=== PATIENT | male | born 1955 | race African-American/Black ===

== ENCOUNTER 2017-09-25 12:28 | Inpatient (IN) | payer OTHER ==
[2017-09-25 13:04] VITALS: BMI 34.0
--- NOTE | 2017-09-25 14:39 | HP ---
CIWA Score - CIWA Score Nausea/Vomitin Muscle Tremors: 3 Anxiety: 3 Agitation: 3 Paroxysmal Sweats: 3 Orientation: 1-Uncertain about Date Tacttile Disturbances: 0-None Auditory Disturbances: 0-None Visual Disturbances: 0-None Headache: 0-None Present CIWA-Ar Total Score: 15 Admission ROS BHS - HPI Chief Complaint: " I need to stop drinking, I need help with my drinking problem" Allergies/Adverse Reactions: Allergies Allergy/AdvReac Type Severity Reaction Status Date / Time Penicillins Allergy Severe Swelling Verified 09/25/17 13:52 History of Present Illness: 61 year old male with a thirty year history of alcohol addiction presents today for alcohol detox. Denies previous detox experience. Endorses 18 months hx of sobriety in [address] case, has never been sober since then. Was at [facility] last night seeking help for detox, was brought in today by Lori. Denies any significant medical or psychiatric hx, although has been told he has HTN in the past but not on meds. Denies current suicidal ideas or attempt. Last drink was 9pm last night. Exam Limitations: No Limitations - Ebola screening Have you traveled outside of the country in the last 21 days: No (N) Have you had contact with anyone from an Ebola affected area: No Have you been sick,other than usual withdrawal symptoms: No Do you have a fever: No - Review of Systems Constitutional: No Symptoms Reported EENT: reports: Other (wears bifocal glasses) Respiratory: reports: No Symptoms reported (with clear phlegm x years), Productive cough Cardiac: reports: No Symptoms Reported GI: reports: Other (burning in abdomen which subsides with milk) : reports: No Symptoms Reported Musculoskeletal: reports: No Symptoms Reported Integumentary: reports: No Symptoms Reported Neuro: reports: No Symptoms reported Endocrine: reports: No Symptoms Reported Hematology: reports: No Symptoms Reported Psychiatric: reports: Judgement Intact, Mood/Affect Appropiate, Orientated x3, Anxious Other Systems: Reviewed and Negative Patient History - Patient Medical History Hx Asthma: No Hx Chronic Obstructive Pulmonary Disease (COPD): No Hx Cancer: No Hx Cardiac Disorders: No Hx Congestive Heart Failure: No Hx Hypertension: Yes (Not on meds) Hx Hypercholesterolemia: No Hx Pacemaker: No HX Cerebrovascular Accident: No Hx Seizures: No Hx Dementia: No Hx Diabetes: No Hx Gastrointestinal Disorders: No Hx Liver Disease: No Hx Genitourinary Disorders: No Hx Sexually Transmitted Disorders: No Hx Renal Disease (ESRD): No Hx Thyroid Disease: No Hx Human Immunodeficiency Virus (HIV): No Hx Hepatitis C: No Hx Depression: No Hx Suicide Attempt: No (denies past or current) Hx Bipolar Disorder: No Hx Schizophrenia: No - Patient Surgical History Past Surgical History: No Hx Neurologic Surgery: No Hx Cataract Extraction: No Hx Cardiac Surgery: No Hx Lung Surgery: No Hx Breast Surgery: No Hx Breast Biopsy: No Hx Abdominal Surgery: No Hx Appendectomy: No Hx Cholecystectomy: No Hx Genitourinary Surgery: No Hx Section: No Hx Orthopedic Surgery: No Anesthesia Reaction: No - PPD History Previous Implant?: Yes Documented Results: Negative w/o proof Implanted On Prior R Admission?: No PPD to be Administered?: Yes - Reproductive History Patient is a Female of Child Bearing Age (11 -55 yrs old): No - Smoking Cessation Smoking history: Current every day smoker Have you smoked in the past 12 months: Yes Aproximately how many cigarettes per day: 20 Hx Chewing Tobacco Use: No Initiated information on smoking cessation: Yes 'Breaking Loose' booklet given: 09/25/17 - Substance & Tx. History Hx Alcohol Use: Yes Hx Substance Use: No - Substances Abused Alcohol Route: Oral Frequency: Daily Amount used: liquor- 1 quart, beer- 2 (12 oz)six pack Age of first use: 31 Date of Last Use: 09/24/17 Crack Route: Smoking Frequency: Daily Amount used: 8 - 10 bags Age of first use: 31 Date of Last Use: 09/23/17 Family Disease History - Family Disease History Family Disease History: CA: Mother (lymphoma, 04/2016), Other: Father (1963 ) Admission Physical Exam BHS - Vital Signs Vital Signs: Vital Signs - 24 hr 09/25/17 13:01 Temperature 96 F L Pulse Rate 64 Respiratory 20 Rate Blood Pressure 139/88 - Physical General Appearance: Yes: Mild Distress, Tremorous, Anxious HEENTM: Yes: Within Normal Limits Respiratory: Yes: Chest Non-Tender, Lungs Clear, No Respiratory Distress, No Accessory Muscle Use Breast: Yes: Breast Exam Deferred Cardiology: Yes: Regular Rate, S1, S2 Abdominal: Yes: Normal Bowel Sounds, Non Tender, Distended Genitourinary: Yes: Within Normal Limits Back: Yes: Within Normal Limits, Normal Inspection Musculoskeletal: Yes: full range of Motion, Gait Steady Extremities: Yes: Within Normal Limits, Normal Inspection 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: Yes: Within Normal Limits, Motor Strength 5/5 - Addiitonal Findings: ganglion cyst to L hip area, non tender - Diagnostic (1) Alcohol dependence with uncomplicated intoxication Current Visit: Yes Status: Acute (2) Cocaine dependence Current Visit: Yes Status: Acute (3) Nicotine dependence Current Visit: Yes Status: Chronic Qualifiers: Nicotine product type: cigarettes Cleared for Admission [facility] - Detox or Rehab [facility] Level of Care: Medically Managed Detox Regimen/Protocol: Librium [facility] Breath Alcohol Content Breath Alcohol Content: 0 Urine Drug Screen - Results Drug Screen Negative: No Urine Drug Screen Results: ABISAI-Cocaine
[2017-09-25] MEDS ORDERED: P-EPHED 60MG/TRIPROLIDI 2.5MG TABLET PO PRN (15:02)
[2017-09-25] MEDS ORDERED: ACETAMINOPHEN 325 MG TABLET (FP) PO PRN (15:02)
[2017-09-25] MEDS ORDERED: MENTHOL/PHENOL 1 EACH UD MM PRN (15:02)
[2017-09-25] MEDS ORDERED: MAGNESIUM HYDROX 2400MG/30ML ORAL SUSPENSION 30 ML CUP PO PRN (15:02)
[2017-09-25] MEDS ORDERED: MAG HYDROX/AL HYDROX/SIMETH 30 ML UNIT-DOSE CUP PO PRN (15:02)
[2017-09-25] MEDS ORDERED: guaiFENesin/D-METHORPHAN HB 10 ML UNIT-DOSE CUPS PO PRN (15:02)
[2017-09-25] MEDS ORDERED: NICOTINE POLACRILEX 2 MG GUM BC PRN (15:02)
[2017-09-25] MEDS ORDERED: LOPERAMIDE HCL 2 MG CAPSULE PO PRN (15:02)
[2017-09-25] MEDS ORDERED: MAGNESIUM CITRATE 300 ML BOTTLE PO PRN (15:02)
[2017-09-25] MEDS ORDERED: hydrOXYzine PAMOATE 25 MG CAPSULE (FP) PO PRN (15:02)
[2017-09-25] MEDS ORDERED: IBUPROFEN 400 MG TABLET (FP) PO PRN (15:02)
[2017-09-25] MEDS ORDERED: chlordiazePOXIDE HCL 25 MG CAPSULE PO PRN (17:48)
[2017-09-25] MEDS: chlordiazePOXIDE HCL 25 MG CAPSULE PO SCH ×2 (18:29→22:15)
[2017-09-25] MEDS: NICOTINE 21 MG/24 HOURS TOPICAL PATCH TD SCH (18:34)
[2017-09-25] MEDS: THIAMINE HCL 100 MG TABLET (FP) PO SCH (22:15)
[2017-09-25 23:59] LABS: URINE APPEARANCE CLEAR; URINE BILIRUBIN NEGATIVE (NEGATIVE); URINE BLOOD NEGATIVE (NEGATIVE); URINE COLOR YELLOW; URINE GLUCOSE (UA) NEGATIVE (NEGATIVE); URINE KETONE NEGATIVE (NEGATIVE); URINE LEUK ESTERASE NEGATIVE (NEGATIVE); URINE NITRITE NEGATIVE (NEGATIVE); URINE PROTEIN NEGATIVE (NEGATIVE); URINE UROBILINOGEN NEGATIVE mg/dL (0.2-1.0)
[2017-09-26] MEDS: chlordiazePOXIDE HCL 25 MG CAPSULE PO SCH ×4 (05:25→22:37)
--- NOTE | 2017-09-26 10:06 | CONSULT ---
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 Denies previous detox history. Substance Abuse History: Smoking history: Current every day smoker. Have you smoked in the past 12 months: Yes. Aproximately how many cigarettes per day: 20. Hx Chewing Tobacco Use: No. Initiated information on smoking cessation: Yes. 'Breaking Loose' booklet given: 09/25/17. - Substance & Tx. History. Hx Alcohol Use: Yes. Hx Substance Use: No. - Substances Abused. Alcohol. Route: Oral. Frequency: Daily. Amount used: liquor- 1 quart, beer- 2 (12 oz) six pack. Age of first use: 31. Date of Last Use: 09/24/17. Crack. Route : Smoking. Frequency: Daily. Amount used: 8 - 10 bags. Age of first use: 31. Date of Last Use: 09/23/17 Medical History: Patient denies any significant medical history. Psychiatric History: Patient reports history of depression, history of psychiatric admission on about 2 years ago for safety, reports taking Celexa 20mg poqd priort o admission for his deprerssion. Denies current suicidal ideas or history of suicidal attempts. Physical/Sexual Abuse/Trauma History: Denies Additional Comment: Celexa 20mg poqd Mental Status Exam - Mental Status Exam Alert and Oriented to: Person Cognitive Function: Fair Patient Appearance: Well Groomed Mood: Apprehensive Affect: Appropriate Patient Behavior: Cooperative Speech Pattern: Appropriate Voice Loudness: Mildly Soft/Quiet Thought Process: Circumstantial, Goal Oriented Thought Disorder: Being Controlled Hallucinations: Denies Suicidal Ideation: Denies Homicidal Ideation: Denies Insight/Judgement: Fair Sleep: Difficulty falling asleep Appetite: Fair Muscle strength/Tone: Normal Gait/Station: Normal Additional Comments: Celexa 20mg poqd Psychiatric Findings - Problem List ([place] 1, 2,3) (1) Drug-induced mood disorder Current Visit: Yes Status: Acute (2) Alcohol dependence with uncomplicated intoxication Current Visit: Yes Status: Acute (3) Cocaine dependence Current Visit: Yes Status: Acute (4) Nicotine dependence Current Visit: Yes Status: Chronic Qualifiers: Nicotine product type: cigarettes - Initial Treatment Plan Initial Treatment Plan: Celexa 20mg poqd
[2017-09-26 10:08] LABS: HEMOGLOBIN 12.8 GM/dL (11.7-16.9); MCH 30.2 pg (25.7-33.7); MCHC 33.7 g/dl (32.0-35.9); MEAN CELL VOLUME 89.6 fl (80-96); MEAN PLT VOLUME 8.1 fl (7.5-11.1); PLATELET COUNT 220 K/MM3 (134-434); RBC 4.24 M/mm3 (4.00-5.60); RDW 14.6 % (11.9-15.9); WHITE BLOOD COUNT 4.2 K/mm3 (4.0-10.0)
[2017-09-26 10:17] LABS: CHLORIDE 109 mmol/L (98-107); SODIUM 142 mmol/L (136-145)
[2017-09-26 10:31] LABS: ALBUMIN 3.1 g/dl (3.4-5.0); ALK PHOS 57 U/L (45-117); ANION GAP 8 (8-16); BILIRUBIN,TOTAL 0.3 mg/dL (0.2-1.0); BLOOD UREA NITROGEN 16 mg/dL (7-18); CALCIUM 7.8 mg/dL (8.5-10.1); CO2 25 mmol/L (21-32); CREATININE 0.9 mg/dL (0.7-1.3); GLUCOSE,RANDOM 88 mg/dL (74-106); SGOT/AST 10 U/L (15-37); SGPT/ALT 14 U/L (12-78); TOT PROT 5.7 g/dl (6.4-8.2)
[2017-09-26] MEDS: NICOTINE 21 MG/24 HOURS TOPICAL PATCH TD SCH (10:32)
[2017-09-26] MEDS: PRENATAL VITAMINS W/ FOLIC ACID TABLET (FP) PO SCH (10:32)
[2017-09-26] MEDS: CITALOPRAM HYDROBROMIDE 20 MG TABLET (FP) PO SCH (10:32)
--- NOTE | 2017-09-26 11:17 | PN ---
S CIWA - CIWA Score Nausea/Vomitin Muscle Tremors: 3 Anxiety: 3 Agitation: 2 Paroxysmal Sweats: 1-Minimal Palms Moist Orientation: 0-Oriented Tacttile Disturbances: 1-Very Mild Itch/Numbness Auditory Disturbances: 1-Very Mild Visual Disturbances: 0-None Headache: 2-Mild CIWA-Ar Total Score: 16 BHS Progress Note (SOAP) Subjective: ALERT,IRRITABLE,ANXIOUS,INTERRUPTED SLEEP,TREMOR Objective: 09/26/17 11:15 Vital Signs Temperature 98.1 F 09/26/17 10:30 Pulse Rate 83 09/26/17 10:30 Respiratory Rate 20 09/26/17 10:30 Blood Pressure 145/74 09/26/17 10:30 O2 Sat by Pulse Oximetry (%) EKG NSR,NORMAL ECG Laboratory Last Values WBC 4.2 K/mm3 (4.0-10.0) 09/26/17 07:00 RBC 4.24 M/mm3 (4.00-5.60) 09/26/17 07:00 Hgb 12.8 GM/dL (11.7-16.9) 09/26/17 07:00 Hct 38.0 % (35.4-49) 09/26/17 07:00 MCV 89.6 fl (80-96) 09/26/17 07:00 MCH 30.2 pg (25.7-33.7) 09/26/17 07:00 MCHC 33.7 g/dl (32.0-35.9) 09/26/17 07:00 RDW 14.6 % (11.9-15.9) 09/26/17 07:00 Plt Count 220 K/MM3 (134-434) 09/26/17 07:00 MPV 8.1 fl (7.5-11.1) 09/26/17 07:00 Sodium 142 mmol/L (136-145) 09/26/17 07:00 Potassium 4.0 mmol/L (3.5-5.1) 09/26/17 07:00 Chloride 109 mmol/L (98-107) H 09/26/17 07:00 Carbon Dioxide 25 mmol/L (21-32) 09/26/17 07:00 Anion Gap 8 (8-16) 09/26/17 07:00 BUN 16 mg/dL (7-18) 09/26/17 07:00 Creatinine 0.9 mg/dL (0.7-1.3) 09/26/17 07:00 Creat Clearance w eGFR > 60 (>60) 09/26/17 07:00 Random Glucose 88 mg/dL (74-106) 09/26/17 07:00 Calcium 7.8 mg/dL (8.5-10.1) L 09/26/17 07:00 Total Bilirubin 0.3 mg/dL (0.2-1.0) 09/26/17 07:00 AST 10 U/L (15-37) L 09/26/17 07:00 ALT 14 U/L (12-78) 09/26/17 07:00 Alkaline Phosphatase 57 U/L (45-117) 09/26/17 07:00 Total Protein 5.7 g/dl (6.4-8.2) L 09/26/17 07:00 Albumin 3.1 g/dl (3.4-5.0) L 09/26/17 07:00 Urine Color Yellow 09/25/17 20:00 Urine Appearance Clear 09/25/17 20:00 Urine pH 6.0 (5.0-8.0) 09/25/17 20:00 Ur Specific [place] 1.027 (1.001-1.035) 09/25/17 20:00 Urine Protein Negative (NEGATIVE) 09/25/17 20:00 Urine Glucose (UA) Negative (NEGATIVE) 09/25/17 20:00 Urine Ketones Negative (NEGATIVE) 09/25/17 20:00 Urine Blood Negative (NEGATIVE) 09/25/17 20:00 Urine Nitrite Negative (NEGATIVE) 09/25/17 20:00 Urine Bilirubin Negative (NEGATIVE) 09/25/17 20:00 Urine Urobilinogen Negative mg/dL (0.2-1.0) 09/25/17 20:00 Ur Leukocyte Esterase Negative (NEGATIVE) 09/25/17 20:00 Assessment: 09/26/17 11:17 WITHDRAWAL SYMPTOM Plan: CONTINUE DETOX
--- NOTE | 2017-09-26 16:08 | EKG ---
Test Reason : Blood Pressure : / mmHG Vent. Rate : 083 BPM Atrial Rate : 083 BPM P-R Int : 144 ms QRS Dur : 084 ms QT Int : 390 ms P-R-T Axes : 046 020 010 degrees QTc Int : 458 ms NORMAL SINUS RHYTHM NORMAL ECG NO PREVIOUS ECGS AVAILABLE Confirmed by LUKE SANCHEZ MD ([id number]) on 09/26/2017 4:07:30 PM Referred By: Confirmed By:LUKE SANCHEZ MD
[2017-09-26] MEDS: THIAMINE HCL 100 MG TABLET (FP) PO SCH (22:36)
[2017-09-27] MEDS: chlordiazePOXIDE HCL 25 MG CAPSULE PO SCH ×2 (05:23→10:47)
[2017-09-27] MEDS: NICOTINE 21 MG/24 HOURS TOPICAL PATCH TD SCH (10:47)
[2017-09-27] MEDS: PRENATAL VITAMINS W/ FOLIC ACID TABLET (FP) PO SCH (10:47)
[2017-09-27] MEDS: CITALOPRAM HYDROBROMIDE 20 MG TABLET (FP) PO SCH (10:47)
--- NOTE | 2017-09-27 11:21 | PN ---
S CIWA - CIWA Score Nausea/Vomitin Muscle Tremors: 3 Anxiety: 3 Agitation: 2 Paroxysmal Sweats: 1-Minimal Palms Moist Orientation: 0-Oriented Tacttile Disturbances: 1-Very Mild Itch/Numbness Auditory Disturbances: 1-Very Mild Visual Disturbances: 0-None Headache: 2-Mild CIWA-Ar Total Score: 16 BHS Progress Note (SOAP) Subjective: ALERT,IRRITABLE,ANXIOUS,INTERRUPTED SLEEP,TREMOR Objective: 09/27/17 11:19 Vital Signs Temperature 98.1 F 09/27/17 09:59 Pulse Rate 77 09/27/17 09:59 Respiratory Rate 18 09/27/17 09:59 Blood Pressure 143/84 09/27/17 09:59 O2 Sat by Pulse Oximetry (%) Laboratory Last Values WBC 4.2 K/mm3 (4.0-10.0) 09/26/17 07:00 RBC 4.24 M/mm3 (4.00-5.60) 09/26/17 07:00 Hgb 12.8 GM/dL (11.7-16.9) 09/26/17 07:00 Hct 38.0 % (35.4-49) 09/26/17 07:00 MCV 89.6 fl (80-96) 09/26/17 07:00 MCH 30.2 pg (25.7-33.7) 09/26/17 07:00 MCHC 33.7 g/dl (32.0-35.9) 09/26/17 07:00 RDW 14.6 % (11.9-15.9) 09/26/17 07:00 Plt Count 220 K/MM3 (134-434) 09/26/17 07:00 MPV 8.1 fl (7.5-11.1) 09/26/17 07:00 Sodium 142 mmol/L (136-145) 09/26/17 07:00 Potassium 4.0 mmol/L (3.5-5.1) 09/26/17 07:00 Chloride 109 mmol/L (98-107) H 09/26/17 07:00 Carbon Dioxide 25 mmol/L (21-32) 09/26/17 07:00 Anion Gap 8 (8-16) 09/26/17 07:00 BUN 16 mg/dL (7-18) 09/26/17 07:00 Creatinine 0.9 mg/dL (0.7-1.3) 09/26/17 07:00 Creat Clearance w eGFR > 60 (>60) 09/26/17 07:00 Random Glucose 88 mg/dL (74-106) 09/26/17 07:00 Calcium 7.8 mg/dL (8.5-10.1) L 09/26/17 07:00 Total Bilirubin 0.3 mg/dL (0.2-1.0) 09/26/17 07:00 AST 10 U/L (15-37) L 09/26/17 07:00 ALT 14 U/L (12-78) 09/26/17 07:00 Alkaline Phosphatase 57 U/L (45-117) 09/26/17 07:00 Total Protein 5.7 g/dl (6.4-8.2) L 09/26/17 07:00 Albumin 3.1 g/dl (3.4-5.0) L 09/26/17 07:00 Urine Color Yellow 09/25/17 20:00 Urine Appearance Clear 09/25/17 20:00 Urine pH 6.0 (5.0-8.0) 09/25/17 20:00 Ur Specific [place] 1.027 (1.001-1.035) 09/25/17 20:00 Urine Protein Negative (NEGATIVE) 09/25/17 20:00 Urine Glucose (UA) Negative (NEGATIVE) 09/25/17 20:00 Urine Ketones Negative (NEGATIVE) 09/25/17 20:00 Urine Blood Negative (NEGATIVE) 09/25/17 20:00 Urine Nitrite Negative (NEGATIVE) 09/25/17 20:00 Urine Bilirubin Negative (NEGATIVE) 09/25/17 20:00 Urine Urobilinogen Negative mg/dL (0.2-1.0) 09/25/17 20:00 Ur Leukocyte Esterase Negative (NEGATIVE) 09/25/17 20:00 RPR Titer Nonreactive (NONREACTIVE) 09/26/17 07:00 Assessment: 09/27/17 11:20 WITHDRAWAL SYMPTOM Plan: CONTINUE DETOX
[2017-09-27] MEDS: chlordiazePOXIDE 5 MG CAPSULE PO SCH ×2 (18:18→22:23)
[2017-09-27] MEDS: THIAMINE HCL 100 MG TABLET (FP) PO SCH (22:23)
[2017-09-28] MEDS: chlordiazePOXIDE 5 MG CAPSULE PO SCH ×2 (05:25→10:41)
[2017-09-28] MEDS: PRENATAL VITAMINS W/ FOLIC ACID TABLET (FP) PO SCH (10:41)
[2017-09-28] MEDS: CITALOPRAM HYDROBROMIDE 20 MG TABLET (FP) PO SCH (10:41)
[2017-09-28] MEDS: NICOTINE 21 MG/24 HOURS TOPICAL PATCH TD SCH (10:42)
--- NOTE | 2017-09-28 11:51 | PN ---
S Progress Note (SOAP) Subjective: ALERT,IRRITABLE,ANXIOUS,INTERRUPTED SLEEP Objective: 09/28/17 11:50 Vital Signs Temperature 97.9 F 09/28/17 10:26 Pulse Rate 76 09/28/17 10:26 Respiratory Rate 20 09/28/17 10:26 Blood Pressure 155/84 09/28/17 10:26 O2 Sat by Pulse Oximetry (%) Assessment: 09/28/17 11:50 WITHDRAWAL SYMPTOM Plan: CONTINUE DETOX,DISCHARGE IN AM
[2017-09-28] MEDS: chlordiazePOXIDE HCL 10 MG CAPSULE PO SCH ×2 (18:09→22:20)
[2017-09-28] MEDS: THIAMINE HCL 100 MG TABLET (FP) PO SCH (22:20)
[2017-09-29] MEDS: chlordiazePOXIDE HCL 10 MG CAPSULE PO SCH ×2 (05:27→12:01)
--- NOTE | 2017-09-29 08:32 | PN ---
S Progress Note (SOAP) Subjective: ALERT,NO COMPLAINT Objective: 09/29/17 08:31 Vital Signs Temperature 98.8 F 09/29/17 06:00 Pulse Rate 64 09/29/17 06:00 Respiratory Rate 18 09/29/17 06:00 Blood Pressure 145/86 09/29/17 06:00 O2 Sat by Pulse Oximetry (%) Assessment: 09/29/17 08:31 DETOX COMPLETED,NO WITHDRAWAL SYMPTOM Plan: DISCHARGE TODAY,FOLLOW UP WITH AFTER CARE PROGRAM ARRANGEMENT
--- NOTE | 2017-09-29 08:36 | DS ---
[facility] Summary Admission Date: 09/25/17 Discharge Date: 09/29/17 - History Present History: Alcohol Dependence, Cocaine Dependence Additional Comments: FOLLOW UP WITH AFTER CARE PROGRAM ARRANGEMENT Pertinent Past History: NICOTINE DEPENDENCE - Physical Exam Results Vital Signs: Vital Signs Temperature 98.8 F 09/29/17 06:00 Pulse Rate 64 09/29/17 06:00 Respiratory Rate 18 09/29/17 06:00 Blood Pressure 145/86 09/29/17 06:00 O2 Sat by Pulse Oximetry (%) Pertinent Admission Physical Exam Findings: WITHDRAWAL SIGNS AND SYMPTOM Vital Signs Temperature 98.8 F 09/29/17 06:00 Pulse Rate 64 09/29/17 06:00 Respiratory Rate 18 09/29/17 06:00 Blood Pressure 145/86 09/29/17 06:00 O2 Sat by Pulse Oximetry (%) - Treatment Hospital Course: Detox Protocol Followed, Detoxed Safely, Responded well, Discharged Condition Good, Rehab Referral Accepted Patient has Accepted a Rehab Referral to: [facility] - Medication Discharge Medications: Ambulatory Orders Citalopram Hydrobromide [Celexa -] 20 mg PO DAILY #30 tablet 09/26/17 - Diagnosis (1) Alcohol dependence with uncomplicated intoxication Current Visit: Yes Status: Acute (2) Cocaine dependence Current Visit: Yes Status: Acute (3) Drug-induced mood disorder Current Visit: Yes Status: Acute (4) Nicotine dependence Current Visit: Yes Status: Chronic Qualifiers: Nicotine product type: cigarettes - AMA Did Patient Leave Against Medical Advice: No
[2017-09-29 09:55] VITALS: BP 153/84; PULSE 73; TEMP 97.2
[2017-09-29] MEDS: NICOTINE 21 MG/24 HOURS TOPICAL PATCH TD SCH (10:55)
[2017-09-29] MEDS: CITALOPRAM HYDROBROMIDE 20 MG TABLET (FP) PO SCH (10:55)
[2017-09-29] MEDS: PRENATAL VITAMINS W/ FOLIC ACID TABLET (FP) PO SCH (10:55)
== END 2017-09-29 13:59 | disposition home or self-care (01) | DRG 774 ==
LOC: YASAS 12:28 → Y6N 15:26
PROVIDERS: ADMIT Internal Medicine; ATTEND Internal Medicine
PROC: HZ2ZZZZ Detoxification Services for Substance Abuse Treatment (ICD-10-PCS; principal; 2017-09-25)
DX: F10.230 Alcohol dependence with withdrawal, uncomplicated (principal); F14.20 Cocaine dependence, uncomplicated; F17.210 Nicotine dependence, cigarettes, uncomplicated; F19.24 Other psychoactive substance dependence with psychoactive substance-induced mood disorder
CPT/HCPCS: 36415; 80053; 81003; 85027; 86593; 93005; 93010

== ENCOUNTER 2017-10-31 19:34 | Inpatient (IN) | payer OTHER ==
[2017-10-31 21:22] VITALS: BMI 29.9
--- NOTE | 2017-10-31 23:28 | HP ---
CIWA Score - CIWA Score Nausea/Vomitin-Mild Nausea/No Vomiting Muscle Tremors: 2 Anxiety: 2 Agitation: 2 Paroxysmal Sweats: 1-Minimal Palms Moist Orientation: 0-Oriented Tacttile Disturbances: 2-Mild Itch/Numbness/Burn Auditory Disturbances: 0-None Visual Disturbances: 0-None Headache: 2-Mild CIWA-Ar Total Score: 12 Admission ROS BHS - HPI Chief Complaint: alcohol withdrawal symptoms Allergies/Adverse Reactions: Allergies Allergy/AdvReac Type Severity Reaction Status Date / Time Penicillins Allergy Severe Swelling Verified 09/25/17 13:52 History of Present Illness: 62 year old male with hx of nicotine, alcohol and crack / cocaine dependence is here seeking detox. Reports last detox at [facility] 09/25/17 - 09/29/17. Endorses 18 months hx of sobriety in [address] case, has never been sober since then. PMHX: HTN, insomnia, denies any other medical ailments. Denies suicidal / homicidal ideation or suicide attempts. Exam Limitations: No Limitations - Ebola screening Have you traveled outside of the country in the last 21 days: No Have you had contact with anyone from an Ebola affected area: No Have you been sick,other than usual withdrawal symptoms: No Do you have a fever: No - Review of Systems Constitutional: Changes in sleep EENT: reports: See HPI, Other (q-tip in the right ear x 1 year) Respiratory: reports: No Symptoms reported Cardiac: reports: No Symptoms Reported GI: reports: Diarrhea, Nausea, Poor Fluid Intake : reports: No Symptoms Reported Musculoskeletal: reports: No Symptoms Reported Integumentary: reports: Pruritus (neck) Neuro: reports: Headache Endocrine: reports: Increased Thirst Hematology: reports: No Symptoms Reported Psychiatric: reports: Orientated x3, Anxious Other Systems: Reviewed and Negative Patient History - Patient Medical History Hx Asthma: No Hx Chronic Obstructive Pulmonary Disease (COPD): No Hx Cancer: No Hx Cardiac Disorders: No Hx Congestive Heart Failure: No Hx Hypertension: Yes (Not on meds) Hx Hypercholesterolemia: No Hx Pacemaker: No HX Cerebrovascular Accident: No Hx Seizures: No Hx Dementia: No Hx Diabetes: No Hx Gastrointestinal Disorders: No Hx Liver Disease: No Hx Genitourinary Disorders: No Hx Sexually Transmitted Disorders: No Hx Renal Disease (ESRD): No Hx Thyroid Disease: No Hx Human Immunodeficiency Virus (HIV): No Hx Hepatitis C: No Hx Depression: No Hx Suicide Attempt: No (denies past or current) Hx Bipolar Disorder: No Hx Schizophrenia: No - Patient Surgical History Past Surgical History: No Hx Neurologic Surgery: No Hx Cataract Extraction: No Hx Cardiac Surgery: No Hx Lung Surgery: No Hx Breast Surgery: No Hx Breast Biopsy: No Hx Abdominal Surgery: No Hx Appendectomy: No Hx Cholecystectomy: No Hx Genitourinary Surgery: No Hx Section: No Hx Orthopedic Surgery: No Anesthesia Reaction: No - PPD History Previous Implant?: Yes Documented Results: Negative w/proof Date: 09/27/17 PPD to be Administered?: No - Reproductive History Patient is a Female of Child Bearing Age (11 -55 yrs old): No - Smoking Cessation Smoking history: Current every day smoker Have you smoked in the past 12 months: Yes Aproximately how many cigarettes per day: 2 Hx Chewing Tobacco Use: No Initiated information on smoking cessation: Yes 'Breaking Loose' booklet given: 10/31/17 - Substance & Tx. History Hx Alcohol Use: Yes Hx Substance Use: Yes Substance Use Type: Alcohol, Cocaine Hx Substance Use Treatment: Yes ([facility] 09/25/17 -09/29/17) - Substances Abused Alcohol Route: Oral Frequency: Daily Amount used: 1 quart [place] Age of first use: 28 Date of Last Use: 10/31/17 Crack Route: Smoking Frequency: Daily Amount used: 1.5 gram Age of first use: 28 Date of Last Use: 10/30/17 Family Disease History - Family Disease History Family Disease History: CA: Mother (lymphoma, 04/2016), Other: Father (1963 ) Admission Physical Exam [facility] - Vital Signs Vital Signs: Vital Signs - 24 hr 10/31/17 21:20 Temperature 97.3 F L Pulse Rate 78 Respiratory 18 Rate Blood Pressure 151/86 - Physical General Appearance: Yes: No Apparent Distress, Sweating, Anxious HEENTM: Yes: EOMI, Hearing grossly Normal, Normal ENT Inspection, Normocephalic , Normal Voice, CODI, Pharynx Normal, Tm's normal Respiratory: Yes: Chest Non-Tender, Lungs Clear, Normal Breath Sounds, No Respiratory Distress, No Accessory Muscle Use Neck: Yes: Within Normal Limits Breast: Yes: Breast Exam Deferred Cardiology: Yes: Regular Rhythm, Regular Rate Abdominal: Yes: Normal Bowel Sounds, Non Tender, Flat, Soft Genitourinary: Yes: Within Normal Limits Back: Yes: Normal Inspection Musculoskeletal: Yes: full range of Motion, Gait Steady, Pelvis Stable Extremities: Yes: Normal Capillary Refill, Normal Inspection, Normal Range of Motion, Non-Tender 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: 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: 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 NML intact, Fully Oriented, Alert, Motor Strength 5/5, Depressed Affect Integumentary: Yes: Normal Color, Warm, Diaphoresis Lymphatic: Yes: Within Normal Limits - Diagnostic (1) Hypertension Current Visit: Yes Status: Chronic Qualifiers: Hypertension type: essential hypertension Qualified Code(s): I10 - Essential (primary) hypertension (2) Alcohol dependence with uncomplicated intoxication Current Visit: Yes Status: Acute (3) Cocaine dependence Current Visit: Yes Status: Acute (4) Nicotine dependence Current Visit: Yes Status: Chronic Qualifiers: Nicotine product type: cigarettes Cleared for Admission [facility] - Detox or Rehab [facility] Level of Care: Medically Managed Detox Regimen/Protocol: Librium [facility] Breath Alcohol Content Breath Alcohol Content: 0 Urine Drug Screen - Results Drug Screen Negative: No Urine Drug Screen Results: ABISAI-Cocaine
[2017-10-31] MEDS ORDERED: P-EPHED 60MG/TRIPROLIDI 2.5MG TABLET PO PRN (23:36)
[2017-10-31] MEDS ORDERED: NICOTINE POLACRILEX 2 MG GUM BUC PRN (23:36)
[2017-10-31] MEDS ORDERED: MAG HYDROX/AL HYDROX/SIMETH 30 ML UNIT-DOSE CUP PO PRN (23:36)
[2017-10-31] MEDS ORDERED: chlordiazePOXIDE HCL 25 MG CAPSULE PO ONE (23:36)
[2017-10-31] MEDS ORDERED: hydrOXYzine PAMOATE 50 MG CAPSULE (FP) PO PRN (23:36)
[2017-10-31] MEDS ORDERED: MAGNESIUM CITRATE 300 ML BOTTLE PO PRN (23:36)
[2017-10-31] MEDS ORDERED: LOPERAMIDE HCL 2 MG CAPSULE PO PRN (23:36)
[2017-10-31] MEDS ORDERED: MAGNESIUM HYDROX 2400MG/30ML ORAL SUSPENSION 30 ML CUP PO PRN (23:36)
[2017-10-31] MEDS ORDERED: chlordiazePOXIDE HCL 25 MG CAPSULE PO PRN (23:36)
[2017-10-31] MEDS ORDERED: ACETAMINOPHEN 325 MG TABLET (FP) PO PRN (23:36)
[2017-10-31] MEDS ORDERED: guaiFENesin/D-METHORPHAN HB 10 ML UNIT-DOSE CUPS PO PRN (23:36)
[2017-10-31] MEDS ORDERED: IBUPROFEN 400 MG TABLET (FP) PO PRN (23:36)
[2017-10-31] MEDS ORDERED: MENTHOL/PHENOL 1 EACH UD MM PRN (23:36)
[2017-11-01] MEDS: chlordiazePOXIDE HCL 25 MG CAPSULE PO SCH ×5 (02:20→22:18)
[2017-11-01 10:02] LABS: URINE APPEARANCE CLEAR; URINE BILIRUBIN NEGATIVE (<2.0 mg/dL); URINE BLOOD NEGATIVE (NEGATIVE); URINE COLOR LTYELLOW; URINE GLUCOSE (UA) NEGATIVE (NEGATIVE); URINE KETONE NEGATIVE (NEGATIVE); URINE LEUK ESTERASE NEGATIVE (NEGATIVE); URINE NITRITE NEGATIVE (NEGATIVE); URINE PROTEIN NEGATIVE (NEGATIVE); URINE UROBILINOGEN NEGATIVE mg/dL (0.2-1.0)
[2017-11-01 10:19] LABS: HEMATOCRIT 37.9 % (35.4-49); HEMOGLOBIN 12.7 GM/dL (11.7-16.9); MCH 29.9 pg (25.7-33.7); MCHC 33.5 g/dl (32.0-35.9); MEAN CELL VOLUME 89.3 fl (80-96); MEAN PLT VOLUME 8.7 fl (7.5-11.1); PLATELET COUNT 198 K/MM3 (134-434); RBC 4.24 M/mm3 (4.00-5.60); RDW 14.2 % (11.9-15.9); WHITE BLOOD COUNT 3.7 K/mm3 (4.0-10.0)
[2017-11-01 10:25] LABS: CHLORIDE 111 mmol/L (98-107); POTASSIUM 3.8 mmol/L (3.5-5.1); SODIUM 145 mmol/L (136-145)
[2017-11-01 10:32] LABS: ALBUMIN 3.2 g/dl (3.4-5.0); ALK PHOS 62 U/L (45-117); ANION GAP 6 (8-16); BILIRUBIN,TOTAL 0.2 mg/dL (0.2-1.0); BLOOD UREA NITROGEN 15 mg/dL (7-18); CALCIUM 8.2 mg/dL (8.5-10.1); CO2 28 mmol/L (21-32); CREATININE 0.8 mg/dL (0.7-1.3); GLUCOSE,RANDOM 85 mg/dL (74-106); SGOT/AST 23 U/L (15-37); SGPT/ALT 24 U/L (12-78); TOT PROT 6.2 g/dl (6.4-8.2)
[2017-11-01] MEDS: NICOTINE 14 MG/24 HOURS TOPICAL PATCH TD SCH (10:43)
[2017-11-01] MEDS: PRENATAL VITAMINS W/ FOLIC ACID TABLET (FP) PO SCH (10:43)
[2017-11-01] MEDS ORDERED: FLU VACCINE QUAD 60 MCG/0.5 ML (MDV 17-18) IM ONE (12:00)
[2017-11-01] MEDS: LABETALOL HCL 200 MG TABLET (FP) PO SCH ×2 (12:07→22:18)
[2017-11-01] MEDS: PATIENT'S OWN MEDICATION (NON-FORMULARY) (Losartan/Hydrochlorothiazide [Hyzaar 100-12.5 Ta PO SCH (12:08)
--- NOTE | 2017-11-01 12:43 | PN ---
[facility] CIWA - CIWA Score Nausea/Vomitin-No Nausea/No Vomiting Muscle Tremors: 3 Anxiety: 3 Agitation: 3 Paroxysmal Sweats: 1-Minimal Palms Moist Orientation: 0-Oriented Tacttile Disturbances: 0-None Auditory Disturbances: 0-None Visual Disturbances: 0-None Headache: 1-Very Mild CIWA-Ar Total Score: 11 S Progress Note (SOAP) Subjective: sweat tremor anxiety restlessness trouble sleeping headache Objective: 11/01/17 12:45 Vital Signs Temperature 97.5 F L 11/01/17 10:16 Pulse Rate 71 11/01/17 10:16 Respiratory Rate 20 11/01/17 10:16 Blood Pressure 158/88 11/01/17 10:16 O2 Sat by Pulse Oximetry (%) Laboratory Last Values WBC 3.7 K/mm3 (4.0-10.0) L 11/01/17 08:30 RBC 4.24 M/mm3 (4.00-5.60) 11/01/17 08:30 Hgb 12.7 GM/dL (11.7-16.9) 11/01/17 08:30 Hct 37.9 % (35.4-49) 11/01/17 08:30 MCV 89.3 fl (80-96) 11/01/17 08:30 MCH 29.9 pg (25.7-33.7) 11/01/17 08:30 MCHC 33.5 g/dl (32.0-35.9) 11/01/17 08:30 RDW 14.2 % (11.9-15.9) 11/01/17 08:30 Plt Count 198 K/MM3 (134-434) 11/01/17 08:30 MPV 8.7 fl (7.5-11.1) 11/01/17 08:30 Sodium 145 mmol/L (136-145) 11/01/17 08:30 Potassium 3.8 mmol/L (3.5-5.1) 11/01/17 08:30 Chloride 111 mmol/L (98-107) H 11/01/17 08:30 Carbon Dioxide 28 mmol/L (21-32) 11/01/17 08:30 Anion Gap 6 (8-16) L 11/01/17 08:30 BUN 15 mg/dL (7-18) 11/01/17 08:30 Creatinine 0.8 mg/dL (0.7-1.3) 11/01/17 08:30 Creat Clearance w eGFR > 60 (>60) 11/01/17 08:30 Random Glucose 85 mg/dL (74-106) 11/01/17 08:30 Calcium 8.2 mg/dL (8.5-10.1) L 11/01/17 08:30 Total Bilirubin 0.2 mg/dL (0.2-1.0) D 11/01/17 08:30 AST 23 U/L (15-37) D 11/01/17 08:30 ALT 24 U/L (12-78) D 11/01/17 08:30 Alkaline Phosphatase 62 U/L (45-117) 11/01/17 08:30 Total Protein 6.2 g/dl (6.4-8.2) L 11/01/17 08:30 Albumin 3.2 g/dl (3.4-5.0) L 11/01/17 08:30 Urine Color Ltyellow 11/01/17 08:00 Urine Appearance Clear 11/01/17 08:00 Urine pH 6.0 (5.0-8.0) 11/01/17 08:00 Ur Specific [place] 1.018 (1.001-1.035) 11/01/17 08:00 Urine Protein Negative (NEGATIVE) 11/01/17 08:00 Urine Glucose (UA) Negative (NEGATIVE) 11/01/17 08:00 Urine Ketones Negative (NEGATIVE) 11/01/17 08:00 Urine Blood Negative (NEGATIVE) 11/01/17 08:00 Urine Nitrite Negative (NEGATIVE) 11/01/17 08:00 Urine Bilirubin Negative (<2.0 mg/dL) 11/01/17 08:00 Urine Urobilinogen Negative mg/dL (0.2-1.0) 11/01/17 08:00 Ur Leukocyte Esterase Negative (NEGATIVE) 11/01/17 08:00 RPR Titer Nonreactive (NONREACTIVE) 11/01/17 08:30 lab noted Assessment: 11/01/17 12:46 withdrawal sx Plan: continue detox
[2017-11-01] MEDS: amLODIPine BESYLATE 5 MG TABLET (FP) PO SCH ×2 (13:31→22:18)
--- NOTE | 2017-11-01 14:21 | CONSULT ---
[facility] Psychiatric Consult - Data Date of interview: 11/01/17 Admission source: [facility] Identifying data: Pt. is a 62 year old single male, father of two, unemployed, and currently living with family. Pt. is receiving financial assistance from family. This is one of multiple admissions for patient. Pt. admitted to detox for alcohol and cocaine dependence. Substance Abuse History: Following information confirmed with Mr. Coreas: Smoking Cessation. Smoking history: Current every day smoker. Have you smoked in the past 12 months: Yes. Aproximately how many cigarettes per day: 2. Hx Chewing Tobacco Use: No. Initiated information on smoking cessation: Yes. ' Breaking Loose' booklet given: 10/31/17. - Substance & Tx. History. Hx Alcohol Use: Yes. Hx Substance Use: Yes. Substance Use Type: Alcohol, Cocaine. Hx Substance Use Treatment: Yes ([facility] 09/25/17 -09/29/17). - Substances Abused. Alcohol. Route: Oral. Frequency: Daily. Amount used: 1 quart [place]. Age of first use: 28. Date of Last Use: 10/31/17. Crack. Route: Smoking. Frequency: Daily. Amount used: 1.5 gram. Age of first use: 28. Date of Last Use: 10/30/17 Medical History: hypertension Psychiatric History: Patient reports spending two days at [facility] in august 2017 after jokingly stating he wanted to hurt himself. No other reported psychiatric hospitalizations noted. Pt. denies h/o outpatient care and suicide attempt. As per pharmacy claims patient has been prescribed celexa 20mg PO daily but patient denies accepting medication. Physical/Sexual Abuse/Trauma History: Denies. Mental Status Exam - Mental Status Exam Alert and Oriented to: Time, Place, Person Cognitive Function: Good Patient Appearance: Well Groomed Mood: Withdrawn, Euthymic Affect: Mood Congruent Patient Behavior: Guarded, Cooperative Speech Pattern: Appropriate Voice Loudness: Normal Thought Process: Goal Oriented Thought Disorder: Not Present Hallucinations: Denies Suicidal Ideation: Denies Homicidal Ideation: Denies Insight/Judgement: Poor Sleep: Fair Appetite: Fair Muscle strength/Tone: Normal Gait/Station: Other (Did not observe patien't gait.) Psychiatric Findings - Problem List ([place] 1, 2,3) (1) Alcohol dependence with uncomplicated intoxication Current Visit: Yes Status: Acute (2) Cocaine dependence Current Visit: Yes Status: Acute (3) Insomnia Current Visit: Yes Status: Acute (4) Nicotine dependence Current Visit: Yes Status: Chronic Qualifiers: Nicotine product type: cigarettes - Initial Treatment Plan Initial Treatment Plan: Psychoeducation provided. Detoxification in progress. Melatonin 5mg ordered for sleep by [employer]. Observation.
--- NOTE | 2017-11-01 16:56 | EKG ---
Test Reason : Blood Pressure : / mmHG Vent. Rate : 071 BPM Atrial Rate : 071 BPM P-R Int : 156 ms QRS Dur : 098 ms QT Int : 412 ms P-R-T Axes : 078 032 040 degrees QTc Int : 447 ms NORMAL SINUS RHYTHM NORMAL ECG Confirmed by MD Baird Edward ([id number]) on 11/01/2017 4:55:56 PM Referred By: Confirmed By:Emanuel Baird MD
[2017-11-01] MEDS: THIAMINE HCL 100 MG TABLET (FP) PO SCH (22:18)
[2017-11-02] MEDS: chlordiazePOXIDE HCL 25 MG CAPSULE PO SCH ×3 (05:13→18:00)
[2017-11-02] MEDS: PRENATAL VITAMINS W/ FOLIC ACID TABLET (FP) PO SCH (10:12)
[2017-11-02] MEDS: LABETALOL HCL 200 MG TABLET (FP) PO SCH ×2 (10:12→22:40)
[2017-11-02] MEDS: PATIENT'S OWN MEDICATION (NON-FORMULARY) (Losartan/Hydrochlorothiazide [Hyzaar 100-12.5 Ta PO SCH (10:13)
[2017-11-02] MEDS: NICOTINE 14 MG/24 HOURS TOPICAL PATCH TD SCH (10:13)
[2017-11-02] MEDS: amLODIPine BESYLATE 5 MG TABLET (FP) PO SCH ×2 (10:13→22:39)
--- NOTE | 2017-11-02 12:25 | PN ---
[facility] CIWA - CIWA Score Nausea/Vomitin-No Nausea/No Vomiting Muscle Tremors: 3 Anxiety: 3 Agitation: 3 Paroxysmal Sweats: 1-Minimal Palms Moist Orientation: 0-Oriented Tacttile Disturbances: 0-None Auditory Disturbances: 0-None Visual Disturbances: 0-None Headache: 0-None Present CIWA-Ar Total Score: 10 S Progress Note (SOAP) Subjective: sweat tremor mild gi upset less anxious Objective: 11/02/17 12:25 Vital Signs Temperature 98.1 F 11/02/17 10:31 Pulse Rate 70 11/02/17 10:31 Respiratory Rate 20 11/02/17 10:31 Blood Pressure 136/83 11/02/17 10:31 O2 Sat by Pulse Oximetry (%) Laboratory Last Values WBC 3.7 K/mm3 (4.0-10.0) L 11/01/17 08:30 RBC 4.24 M/mm3 (4.00-5.60) 11/01/17 08:30 Hgb 12.7 GM/dL (11.7-16.9) 11/01/17 08:30 Hct 37.9 % (35.4-49) 11/01/17 08:30 MCV 89.3 fl (80-96) 11/01/17 08:30 MCH 29.9 pg (25.7-33.7) 11/01/17 08:30 MCHC 33.5 g/dl (32.0-35.9) 11/01/17 08:30 RDW 14.2 % (11.9-15.9) 11/01/17 08:30 Plt Count 198 K/MM3 (134-434) 11/01/17 08:30 MPV 8.7 fl (7.5-11.1) 11/01/17 08:30 Sodium 145 mmol/L (136-145) 11/01/17 08:30 Potassium 3.8 mmol/L (3.5-5.1) 11/01/17 08:30 Chloride 111 mmol/L (98-107) H 11/01/17 08:30 Carbon Dioxide 28 mmol/L (21-32) 11/01/17 08:30 Anion Gap 6 (8-16) L 11/01/17 08:30 BUN 15 mg/dL (7-18) 11/01/17 08:30 Creatinine 0.8 mg/dL (0.7-1.3) 11/01/17 08:30 Creat Clearance w eGFR > 60 (>60) 11/01/17 08:30 Random Glucose 85 mg/dL (74-106) 11/01/17 08:30 Calcium 8.2 mg/dL (8.5-10.1) L 11/01/17 08:30 Total Bilirubin 0.2 mg/dL (0.2-1.0) D 11/01/17 08:30 AST 23 U/L (15-37) D 11/01/17 08:30 ALT 24 U/L (12-78) D 11/01/17 08:30 Alkaline Phosphatase 62 U/L (45-117) 11/01/17 08:30 Total Protein 6.2 g/dl (6.4-8.2) L 11/01/17 08:30 Albumin 3.2 g/dl (3.4-5.0) L 11/01/17 08:30 Urine Color Ltyellow 11/01/17 08:00 Urine Appearance Clear 11/01/17 08:00 Urine pH 6.0 (5.0-8.0) 11/01/17 08:00 Ur Specific [place] 1.018 (1.001-1.035) 11/01/17 08:00 Urine Protein Negative (NEGATIVE) 11/01/17 08:00 Urine Glucose (UA) Negative (NEGATIVE) 11/01/17 08:00 Urine Ketones Negative (NEGATIVE) 11/01/17 08:00 Urine Blood Negative (NEGATIVE) 11/01/17 08:00 Urine Nitrite Negative (NEGATIVE) 11/01/17 08:00 Urine Bilirubin Negative (<2.0 mg/dL) 11/01/17 08:00 Urine Urobilinogen Negative mg/dL (0.2-1.0) 11/01/17 08:00 Ur Leukocyte Esterase Negative (NEGATIVE) 11/01/17 08:00 RPR Titer Nonreactive (NONREACTIVE) 11/01/17 08:30 lab noted Assessment: 11/02/17 12:25 withdrawal sx Plan: continue detox
[2017-11-02] MEDS: MELATONIN 5 MG TABLETS PO PRN (22:38)
[2017-11-02] MEDS: THIAMINE HCL 100 MG TABLET (FP) PO SCH (22:39)
[2017-11-02] MEDS: chlordiazePOXIDE 5 MG CAPSULE PO SCH (22:39)
[2017-11-03] MEDS: chlordiazePOXIDE 5 MG CAPSULE PO SCH ×3 (05:46→17:50)
[2017-11-03] MEDS ORDERED: cloNIDine HCL 0.1 MG TABLET PO ONE (06:43)
--- NOTE | 2017-11-03 06:46 | PN ---
[facility] Progress Note Note: Patient's blood pressure is B/P 160/101. Patient is asymptomatic. Clonidine 0.1mg tablet oral ordered.
[2017-11-03] MEDS: amLODIPine BESYLATE 5 MG TABLET (FP) PO SCH (10:11)
[2017-11-03] MEDS: PRENATAL VITAMINS W/ FOLIC ACID TABLET (FP) PO SCH (10:11)
[2017-11-03] MEDS: PATIENT'S OWN MEDICATION (NON-FORMULARY) (Losartan/Hydrochlorothiazide [Hyzaar 100-12.5 Ta PO SCH (10:12)
[2017-11-03] MEDS: LABETALOL HCL 200 MG TABLET (FP) PO SCH ×2 (10:12→22:34)
[2017-11-03] MEDS: NICOTINE 14 MG/24 HOURS TOPICAL PATCH TD SCH (10:12)
[2017-11-03] MEDS ORDERED: amLODIPine BESYLATE 5 MG TABLET (FP) PO ONE (11:58)
--- NOTE | 2017-11-03 12:12 | PN ---
[facility] Progress Note (SOAP) Subjective: feeling better less alcohol withdrawal sx sleep through the night social with peers in day room patient had uncontrolled bp elevation recent losartan increased from 50 mg to 100 mg, encourage adherence with medication as prescribed and the risks of alcohol addiction Objective: 11/03/17 12:15 Vital Signs Temperature 98.2 F 11/03/17 09:54 Pulse Rate 71 11/03/17 09:54 Respiratory Rate 18 11/03/17 09:54 Blood Pressure 144/80 11/03/17 09:54 O2 Sat by Pulse Oximetry (%) Laboratory Last Values WBC 3.7 K/mm3 (4.0-10.0) L 11/01/17 08:30 RBC 4.24 M/mm3 (4.00-5.60) 11/01/17 08:30 Hgb 12.7 GM/dL (11.7-16.9) 11/01/17 08:30 Hct 37.9 % (35.4-49) 11/01/17 08:30 MCV 89.3 fl (80-96) 11/01/17 08:30 MCH 29.9 pg (25.7-33.7) 11/01/17 08:30 MCHC 33.5 g/dl (32.0-35.9) 11/01/17 08:30 RDW 14.2 % (11.9-15.9) 11/01/17 08:30 Plt Count 198 K/MM3 (134-434) 11/01/17 08:30 MPV 8.7 fl (7.5-11.1) 11/01/17 08:30 Sodium 145 mmol/L (136-145) 11/01/17 08:30 Potassium 3.8 mmol/L (3.5-5.1) 11/01/17 08:30 Chloride 111 mmol/L (98-107) H 11/01/17 08:30 Carbon Dioxide 28 mmol/L (21-32) 11/01/17 08:30 Anion Gap 6 (8-16) L 11/01/17 08:30 BUN 15 mg/dL (7-18) 11/01/17 08:30 Creatinine 0.8 mg/dL (0.7-1.3) 11/01/17 08:30 Creat Clearance w eGFR > 60 (>60) 11/01/17 08:30 Random Glucose 85 mg/dL (74-106) 11/01/17 08:30 Calcium 8.2 mg/dL (8.5-10.1) L 11/01/17 08:30 Total Bilirubin 0.2 mg/dL (0.2-1.0) D 11/01/17 08:30 AST 23 U/L (15-37) D 11/01/17 08:30 ALT 24 U/L (12-78) D 11/01/17 08:30 Alkaline Phosphatase 62 U/L (45-117) 11/01/17 08:30 Total Protein 6.2 g/dl (6.4-8.2) L 11/01/17 08:30 Albumin 3.2 g/dl (3.4-5.0) L 11/01/17 08:30 Urine Color Ltyellow 11/01/17 08:00 Urine Appearance Clear 11/01/17 08:00 Urine pH 6.0 (5.0-8.0) 11/01/17 08:00 Ur Specific [place] 1.018 (1.001-1.035) 11/01/17 08:00 Urine Protein Negative (NEGATIVE) 11/01/17 08:00 Urine Glucose (UA) Negative (NEGATIVE) 11/01/17 08:00 Urine Ketones Negative (NEGATIVE) 11/01/17 08:00 Urine Blood Negative (NEGATIVE) 11/01/17 08:00 Urine Nitrite Negative (NEGATIVE) 11/01/17 08:00 Urine Bilirubin Negative (<2.0 mg/dL) 11/01/17 08:00 Urine Urobilinogen Negative mg/dL (0.2-1.0) 11/01/17 08:00 Ur Leukocyte Esterase Negative (NEGATIVE) 11/01/17 08:00 RPR Titer Nonreactive (NONREACTIVE) 11/01/17 08:30 lab noted Assessment: 11/03/17 12:15 mild withdrawal sx hypertension Plan: medically supervised detox amlodipine 10 mg po daily lisinopril 20 mg po daily low salt diet
[2017-11-03] MEDS ORDERED: LISINOPRIL 20 MG TABLET (FP) PO SCH (16:30)
[2017-11-03] MEDS: THIAMINE HCL 100 MG TABLET (FP) PO SCH (22:33)
[2017-11-03] MEDS: MELATONIN 5 MG TABLETS PO PRN (22:33)
[2017-11-03] MEDS: chlordiazePOXIDE HCL 10 MG CAPSULE PO SCH (22:34)
[2017-11-04] MEDS: chlordiazePOXIDE HCL 10 MG CAPSULE PO SCH (05:08)
--- NOTE | 2017-11-04 08:29 | DS ---
[facility] Detox Discharge Summary Admission Date: 10/31/17 Discharge Date: 11/04/17 - History Present History: Alcohol Dependence, Cocaine Dependence Additional Comments: patient declined rehab Pertinent Past History: anxiety, depression, and anxiety, nicotien dependencce and htn - Physical Exam Results Vital Signs: Vital Signs Temperature 97.2 F L 11/04/17 07:14 Pulse Rate 63 11/04/17 07:14 Respiratory Rate 18 11/04/17 07:14 Blood Pressure 136/84 11/04/17 07:14 O2 Sat by Pulse Oximetry (%) Laboratory Tests 11/01/17 11/01/17 11/01/17 08:00 08:30 08:30 WBC 3.7 L RBC 4.24 Hgb 12.7 Hct 37.9 MCV 89.3 MCH 29.9 MCHC 33.5 RDW 14.2 Plt Count 198 MPV 8.7 Sodium 145 Potassium 3.8 Chloride 111 H Carbon Dioxide 28 Anion Gap 6 L BUN 15 Creatinine 0.8 Creat Clearance w eGFR > 60 Random Glucose 85 Calcium 8.2 L Total Bilirubin 0.2 D AST 23 D ALT 24 D Alkaline Phosphatase 62 Total Protein 6.2 L Albumin 3.2 L Urine Color Ltyellow Urine Appearance Clear Urine pH 6.0 Ur Specific [place] 1.018 Urine Protein Negative Urine Glucose (UA) Negative Urine Ketones Negative Urine Blood Negative Urine Nitrite Negative Urine Bilirubin Negative Urine Urobilinogen Negative Ur Leukocyte Esterase Negative RPR Titer 11/01/17 08:30 WBC RBC Hgb Hct MCV MCH MCHC RDW Plt Count MPV Sodium Potassium Chloride Carbon Dioxide Anion Gap BUN Creatinine Creat Clearance w eGFR Random Glucose Calcium Total Bilirubin AST ALT Alkaline Phosphatase Total Protein Albumin Urine Color Urine Appearance Urine pH Ur Specific [place] Urine Protein Urine Glucose (UA) Urine Ketones Urine Blood Urine Nitrite Urine Bilirubin Urine Urobilinogen Ur Leukocyte Esterase RPR Titer Nonreactive Pertinent Admission Physical Exam Findings: withdrawl sx, dehydration - Treatment Hospital Course: Detox Protocol Followed, Detoxed Safely, Responded well, Discharged Condition Good Patient has Accepted a Rehab Referral to: no - Medication Discharge Medications: Ambulatory Orders Citalopram Hydrobromide [Celexa -] 20 mg PO DAILY #30 tablet 09/26/17 Labetalol HCl [Normodyne -] 200 mg PO BID #60 tablet 11/03/17 Losartan/Hydrochlorothiazide [Hyzaar 100-12.5 Tablet] 1 tab PO DAILY #30 tablet 11/03/17 - Diagnosis (1) Alcohol dependence with uncomplicated intoxication Current Visit: Yes Status: Acute (2) Cocaine dependence Current Visit: Yes Status: Acute (3) Insomnia Current Visit: Yes Status: Acute (4) Hypertension Current Visit: Yes Status: Chronic Qualifiers: Hypertension type: essential hypertension Qualified Code(s): I10 - Essential (primary) hypertension (5) Nicotine dependence Current Visit: Yes Status: Chronic Qualifiers: Nicotine product type: cigarettes (6) Drug-induced mood disorder Current Visit: No Status: Acute - AMA Did Patient Leave Against Medical Advice: No
[2017-11-04] MEDS ORDERED: amLODIPine BESYLATE 10 MG TABLET (FP) PO SCH (10:00)
[2017-11-04 10:09] VITALS: BP 131/72; PULSE 70; TEMP 97.7
== END 2017-11-04 09:20 | disposition home or self-care (01) | DRG 774 ==
LOC: YASAS 19:34 → Y6N 22:45
PROVIDERS: ADMIT Internal Medicine; ATTEND Internal Medicine
PROC: HZ2ZZZZ Detoxification Services for Substance Abuse Treatment (ICD-10-PCS; principal; 2017-10-31)
DX: F10.230 Alcohol dependence with withdrawal, uncomplicated (principal); F14.20 Cocaine dependence, uncomplicated; F17.210 Nicotine dependence, cigarettes, uncomplicated; F32.9 Major depressive disorder, single episode, unspecified; F41.9 Anxiety disorder, unspecified; F19.24 Other psychoactive substance dependence with psychoactive substance-induced mood disorder; I10 Essential (primary) hypertension; G47.00 Insomnia, unspecified
CPT/HCPCS: 36415; 80053; 81003; 85027; 86593; 90688; 93005; 93010; G0008; J0735

== ENCOUNTER 2017-12-09 14:07 | Inpatient (IN) | payer OTHER ==
[2017-12-09 17:28] VITALS: BMI 30.7
--- NOTE | 2017-12-09 20:56 | HP ---
CIWA Score - CIWA Score Nausea/Vomitin Muscle Tremors: 4-Moderate,w/Arms Extend Anxiety: 3 Agitation: 3 Paroxysmal Sweats: No Perspiration Orientation: 1-Uncertain about Date Tacttile Disturbances: 0-None Auditory Disturbances: 0-None Visual Disturbances: 0-None Headache: 3-Moderate CIWA-Ar Total Score: 17 Admission ROS BHS - HPI Chief Complaint: Alcohol withdrawal symptoms Allergies/Adverse Reactions: Allergies Allergy/AdvReac Type Severity Reaction Status Date / Time Penicillins Allergy Severe Swelling Verified 12/09/17 17:39 History of Present Illness: 62 years old male with a long history of alcohol dependence is seeking admission to detox. Patient has been in previous detox and reports 10 years of sobriety. He has medical history of HTN and depression. He denies suicide attempt and suicidal ideation at this time. Exam Limitations: No Limitations - Ebola screening Have you traveled outside of the country in the last 21 days: No Have you had contact with anyone from an Ebola affected area: No Have you been sick,other than usual withdrawal symptoms: No Do you have a fever: No - Review of Systems Constitutional: Chills, Malaise, Night Sweats EENT: reports: No Symptoms Reported Respiratory: reports: No Symptoms reported Cardiac: reports: No Symptoms Reported GI: reports: No Symptoms Reported, Poor Appetite, Poor Fluid Intake, Abdominal cramping : reports: No Symptoms Reported Musculoskeletal: reports: Muscle Pain, Muscle Weakness Integumentary: reports: Dryness, Flushing Neuro: reports: Headache, Tremors Endocrine: reports: No Symptoms Reported Hematology: reports: No Symptoms Reported Psychiatric: reports: Anxious Other Systems: Reviewed and Negative Patient History - Patient Medical History Hx Anemia: No Hx Asthma: No Hx Chronic Obstructive Pulmonary Disease (COPD): No Hx Cancer: No Hx Cardiac Disorders: No Hx Congestive Heart Failure: No Hx Hypertension: Yes (Losartan) Hx Hypercholesterolemia: No Hx Pacemaker: No HX Cerebrovascular Accident: No Hx Seizures: No Hx Dementia: No Hx Diabetes: No Hx Gastrointestinal Disorders: No Hx Liver Disease: No Hx Genitourinary Disorders: No Hx Sexually Transmitted Disorders: No Hx Renal Disease (ESRD): No Hx Thyroid Disease: No Hx Human Immunodeficiency Virus (HIV): No (Negative 2017) Hx Hepatitis C: No Hx Depression: Yes (Not on medication) Hx Suicide Attempt: No Hx Bipolar Disorder: No Hx Schizophrenia: No - Patient Surgical History Past Surgical History: No Hx Neurologic Surgery: No Hx Cataract Extraction: No Hx Cardiac Surgery: No Hx Lung Surgery: No Hx Abdominal Surgery: No Hx Appendectomy: No Hx Cholecystectomy: No Hx Genitourinary Surgery: No Hx Orthopedic Surgery: No Anesthesia Reaction: No - PPD History Previous Implant?: Yes Documented Results: Negative w/proof Implanted On Prior [facility] Admission?: Yes Date: 09/27/17 Results: 0 mm PPD to be Administered?: No - Reproductive History Patient is a Female of Child Bearing Age (11 -55 yrs old): No (MALE) - Smoking Cessation Smoking history: Current every day smoker Have you smoked in the past 12 months: Yes Aproximately how many cigarettes per day: 20 Hx Chewing Tobacco Use: No Initiated information on smoking cessation: Yes 'Breaking Loose' booklet given: 12/09/17 - Substance & Tx. History Hx Alcohol Use: Yes Hx Substance Use: Yes Substance Use Type: Cocaine Hx Substance Use Treatment: Yes ([facility] ) - Substances Abused Crack Route: Smoking Frequency: 1-2 times per week Amount used: $300 Age of first use: 38 Date of Last Use: 12/08/17 Alcohol-beer Route: Oral Frequency: Daily Amount used: 4-5 (40 oz.) Age of first use: 28 Date of Last Use: 12/09/17 Family Disease History - Family Disease History Family Disease History: CA: Mother (lymphoma, 04/2016), Other: Father (1963 ) Admission Physical Exam S - Vital Signs Vital Signs: Vital Signs - 24 hr 12/09/17 17:26 Temperature 96.8 F L Pulse Rate 84 Respiratory 20 Rate Blood Pressure 150/90 - Physical HEENTM: Yes: EOMI, Normal ENT Inspection, Normocephalic, Normal Voice, CODI Respiratory: Yes: Lungs Clear, Normal Breath Sounds, No Respiratory Distress Neck: Yes: Supple Breast: Yes: Breast Exam Deferred Cardiology: Yes: Regular Rhythm, Regular Rate, S1, S2 Abdominal: Yes: Normal Bowel Sounds, Soft Genitourinary: Yes: Within Normal Limits Back: Yes: Normal Inspection Musculoskeletal: Yes: Within Normal Limits Extremities: Yes: Tremors 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: Yes: Normal Response Integumentary: Yes: Warm Lymphatic: Yes: Within Normal Limits - Diagnostic (1) Depression Current Visit: Yes Status: Acute (2) Alcohol dependence with uncomplicated intoxication Current Visit: Yes Status: Chronic (3) Cocaine dependence Current Visit: Yes Status: Chronic Qualifiers: Substance use status: uncomplicated Qualified Code(s): F14.20 - Cocaine dependence, uncomplicated (4) Hypertension Current Visit: Yes Status: Chronic Qualifiers: Hypertension type: essential hypertension Qualified Code(s): I10 - Essential (primary) hypertension (5) Nicotine dependence Current Visit: Yes Status: Chronic Qualifiers: Nicotine product type: cigarettes Cleared for Admission S - Detox or Rehab [facility] Level of Care: Medically Managed Detox Regimen/Protocol: Librium [facility] Breath Alcohol Content Breath Alcohol Content: 0 Urine Drug Screen - Results Drug Screen Negative: No Urine Drug Screen Results: ABISAI-Cocaine
[2017-12-09] MEDS ORDERED: MAGNESIUM HYDROX 2400MG/30ML ORAL SUSPENSION 30 ML CUP PO PRN (21:07)
[2017-12-09] MEDS ORDERED: ACETAMINOPHEN 325 MG TABLET (FP) PO PRN (21:07)
[2017-12-09] MEDS ORDERED: chlordiazePOXIDE HCL 25 MG CAPSULE PO PRN (21:07)
[2017-12-09] MEDS ORDERED: MAGNESIUM CITRATE 300 ML BOTTLE PO PRN (21:07)
[2017-12-09] MEDS ORDERED: NICOTINE POLACRILEX 2 MG GUM BC PRN (21:07)
[2017-12-09] MEDS ORDERED: P-EPHED 60MG/TRIPROLIDI 2.5MG TABLET PO PRN (21:07)
[2017-12-09] MEDS ORDERED: MENTHOL/PHENOL 1 EACH UD MM PRN (21:07)
[2017-12-09] MEDS ORDERED: LOPERAMIDE HCL 2 MG CAPSULE PO PRN (21:07)
[2017-12-09] MEDS ORDERED: guaiFENesin/D-METHORPHAN HB 10 ML UNIT-DOSE CUPS PO PRN (21:07)
[2017-12-09] MEDS ORDERED: IBUPROFEN 400 MG TABLET (FP) PO PRN (21:07)
[2017-12-09] MEDS ORDERED: MAG HYDROX/AL HYDROX/SIMETH 30 ML UNIT-DOSE CUP PO PRN (21:07)
[2017-12-09] MEDS ORDERED: MELATONIN 5 MG TABLETS PO PRN (22:00)
[2017-12-09] MEDS ORDERED: LABETALOL HCL 100 MG TABLET (FP) ONE (22:51)
[2017-12-09] MEDS: LABETALOL HCL 200 MG TABLET (FP) PO SCH (22:55)
[2017-12-09] MEDS: chlordiazePOXIDE HCL 25 MG CAPSULE PO SCH (22:55)
[2017-12-09] MEDS: THIAMINE HCL 100 MG TABLET (FP) PO SCH (22:55)
[2017-12-10 01:31] LABS: URINE APPEARANCE TURBID; URINE BILIRUBIN NEGATIVE (<2.0 mg/dL); URINE COLOR YELLOW; URINE GLUCOSE (UA) NEGATIVE (NEGATIVE); URINE KETONE NEGATIVE (NEGATIVE); URINE LEUK ESTERASE NEGATIVE (NEGATIVE); URINE NITRITE NEGATIVE (NEGATIVE)
[2017-12-10 01:33] LABS: URINE PROTEIN 1+ (NEGATIVE)
[2017-12-10 01:38] LABS: URINE MUCUS MANY
[2017-12-10] MEDS: chlordiazePOXIDE HCL 25 MG CAPSULE PO SCH ×4 (05:33→22:10)
--- NOTE | 2017-12-10 08:47 | EKG ---
Test Reason : Blood Pressure : / mmHG Vent. Rate : 066 BPM Atrial Rate : 066 BPM P-R Int : 146 ms QRS Dur : 098 ms QT Int : 430 ms P-R-T Axes : 073 027 046 degrees QTc Int : 450 ms NORMAL SINUS RHYTHM POSSIBLE LEFT ATRIAL ENLARGEMENT BORDERLINE ECG WHEN COMPARED WITH ECG OF 01-NOV-2017 02:28, T WAVE AMPLITUDE HAS DECREASED IN ANTERIOR LEADS Confirmed by HELENA BLAIR, REDD ([id number]) on 12/10/2017 8:47:08 AM Referred By: Mike Gunn Confirmed By:REDD MALIK MD
[2017-12-10] MEDS ORDERED: PATIENT'S OWN MEDICATION (NON-FORMULARY) (Losartan/Hydrochlorothiazide [Hyzaar 100-12.5 Ta PO SCH (10:00)
[2017-12-10 10:03] LABS: HEMATOCRIT 38.8 % (35.4-49); HEMOGLOBIN 12.7 GM/dL (11.7-16.9); MCH 29.1 pg (25.7-33.7); MCHC 32.8 g/dl (32.0-35.9); MEAN CELL VOLUME 88.9 fl (80-96); MEAN PLT VOLUME 8.6 fl (7.5-11.1); PLATELET COUNT 205 K/MM3 (134-434); RBC 4.36 M/mm3 (4.00-5.60); RDW 14.1 % (11.9-15.9); WHITE BLOOD COUNT 4.6 K/mm3 (4.0-10.0)
[2017-12-10] MEDS: NICOTINE 14 MG/24 HOURS TOPICAL PATCH TD SCH (10:29)
[2017-12-10] MEDS: PRENATAL VITAMINS W/ FOLIC ACID TABLET (FP) PO SCH (10:29)
[2017-12-10] MEDS: HYDROCHLOROTHIAZIDE 12.5 MG CAPSULE (FP) PO SCH (10:29)
[2017-12-10 10:31] LABS: CHLORIDE 113 mmol/L (98-107); POTASSIUM 3.9 mmol/L (3.5-5.1); SODIUM 146 mmol/L (136-145)
[2017-12-10] MEDS: LOSARTAN POTASSIUM 100 MG TABLET PO SCH (10:45)
[2017-12-10] MEDS: LABETALOL HCL 200 MG TABLET (FP) PO SCH ×2 (10:45→22:10)
[2017-12-10 10:51] LABS: ALBUMIN 3.1 g/dl (3.4-5.0); ALK PHOS 76 U/L (45-117); ANION GAP 7 (8-16); BILIRUBIN,TOTAL 0.3 mg/dL (0.2-1.0); BLOOD UREA NITROGEN 15 mg/dL (7-18); CO2 26 mmol/L (21-32); GLUCOSE,RANDOM 94 mg/dL (74-106); SGOT/AST 27 U/L (15-37); SGPT/ALT 40 U/L (12-78); TOT PROT 6.1 g/dl (6.4-8.2)
--- NOTE | 2017-12-10 12:24 | CONSULT ---
[facility] Psychiatric Consult - Data Date of interview: 12/10/17 Admission source: [facility] Identifying data: Readmission to [facility] for this 62 y/o AA male seeking detox treatment on for alcohol and cocaine dependence.Patient is single, a father of two,homeless,unemployed and supported on Public Assistance. Substance Abuse History: Confirmed by patient.Smoking history: Current every day smoker. Have you smoked in the past 12 months: Yes. Aproximately how many cigarettes per day: 20. Hx Chewing Tobacco Use: No. Initiated information on smoking cessation: Yes. 'Breaking Loose' booklet given: 12/09/17. - Substance & Tx. History. Hx Alcohol Use: Yes. Hx Substance Use: Yes. Substance Use Type : Cocaine. Hx Substance Use Treatment: Yes ([facility] - Substances Abused. Crack. Route: Smoking. Frequency: 1-2 times per week. Amount used: $300. Age of first use: 38. Date of Last Use: 12/08/17. Alcohol-beer. Route: Oral. Frequency: Daily. Amount used: 4-5 (40 oz.). Age of first use: 28. Date of Last Use: 12/09/17 Medical History: Hypertension. Psychiatric History: Patient denies. Physical/Sexual Abuse/Trauma History: Patient denies. Additional Comment: Urine Drug Screen Results: ABISAI-Cocaine.Noted. Mental Status Exam - Mental Status Exam Alert and Oriented to: Time, Place, Person Cognitive Function: Good Patient Appearance: Well Groomed Mood: Withdrawn, Euthymic Affect: Appropriate, Normal Range Patient Behavior: Fatigued, Cooperative Speech Pattern: Clear, Appropriate Voice Loudness: Normal Thought Process: Intact, Goal Oriented Thought Disorder: Not Present Hallucinations: Denies Suicidal Ideation: Denies Homicidal Ideation: Denies Insight/Judgement: Poor Sleep: Fair Appetite: Good Muscle strength/Tone: Normal Gait/Station: Normal Psychiatric Findings - Problem List ([place] 1, 2,3) (1) Alcohol dependence with uncomplicated intoxication Current Visit: Yes Status: Acute (2) Cocaine dependence Current Visit: Yes Status: Acute Qualifiers: Substance use status: uncomplicated Qualified Code(s): F14.20 - Cocaine dependence, uncomplicated (3) Nicotine dependence Current Visit: Yes Status: Acute Qualifiers: Nicotine product type: cigarettes (4) Insomnia Current Visit: Yes Status: Acute - Initial Treatment Plan Initial Treatment Plan: Psychoeducation.Sleep hygiene.detoxification.Insomnia is addressed with melatonin 5 mg po hs prn.Side effects.benefits discussed with the patient.Agrees with careplan.Observation.
--- NOTE | 2017-12-10 16:12 | PN ---
S CIWA - CIWA Score Nausea/Vomitin-No Nausea/No Vomiting Muscle Tremors: 3 Anxiety: 3 Agitation: 1-Slight > Activity Paroxysmal Sweats: No Perspiration Orientation: 0-Oriented Tacttile Disturbances: 3-Moderate Itch/Numb/Burn Auditory Disturbances: 0-None Visual Disturbances: 3-Moderate Sensitivity Headache: 4-Moderately Severe CIWA-Ar Total Score: 17 BHS Progress Note (SOAP) Subjective: Tremors, Diarrhea, H/A, Fatigue. Objective: PATIENT A & O X 3. NO ACUTE DISTRESS. PATIENT DENIES CHEST PAIN. 12/10/17 16:10 Vital Signs Temperature 97.4 F L 12/10/17 14:01 Pulse Rate 76 12/10/17 14:01 Respiratory Rate 18 12/10/17 14:01 Blood Pressure 147/86 12/10/17 14:01 O2 Sat by Pulse Oximetry (%) Laboratory Tests 12/09/17 12/10/17 12/10/17 23:45 07:50 07:50 WBC 4.6 RBC 4.36 Hgb 12.7 Hct 38.8 MCV 88.9 MCH 29.1 MCHC 32.8 RDW 14.1 Plt Count 205 MPV 8.6 Sodium 146 H Potassium 3.9 Chloride 113 H Carbon Dioxide 26 Anion Gap 7 L BUN 15 Creatinine 1.0 D Creat Clearance w eGFR > 60 Random Glucose 94 Calcium 8.0 L Total Bilirubin 0.3 D AST 27 ALT 40 D Alkaline Phosphatase 76 D Total Protein 6.1 L Albumin 3.1 L Urine Color Yellow Urine Appearance Turbid Urine pH 5.0 Ur Specific [place] 1.038 H Urine Protein 1+ H Urine Glucose (UA) Negative Urine Ketones Negative Urine Blood Negative Urine Nitrite Negative Urine Bilirubin Negative Urine Urobilinogen 2.0 Ur Leukocyte Esterase Negative Urine WBC (Auto) None Urine RBC (Auto) None Urine Mucus Many RPR Titer 12/10/17 07:50 WBC RBC Hgb Hct MCV MCH MCHC RDW Plt Count MPV Sodium Potassium Chloride Carbon Dioxide Anion Gap BUN Creatinine Creat Clearance w eGFR Random Glucose Calcium Total Bilirubin AST ALT Alkaline Phosphatase Total Protein Albumin Urine Color Urine Appearance Urine pH Ur Specific [place] Urine Protein Urine Glucose (UA) Urine Ketones Urine Blood Urine Nitrite Urine Bilirubin Urine Urobilinogen Ur Leukocyte Esterase Urine WBC (Auto) Urine RBC (Auto) Urine Mucus RPR Titer Nonreactive LABS NOTED. Assessment: 12/10/17 16:11 WITHDRAWAL SYMPTOMS. Plan: CONTINUE DETOX. INCREASE DAILY PO FLUID INTAKE. ENCOURAGE AMBULATION.
[2017-12-10] MEDS: THIAMINE HCL 100 MG TABLET (FP) PO SCH (22:10)
[2017-12-11] MEDS: chlordiazePOXIDE HCL 25 MG CAPSULE PO SCH ×3 (05:40→17:17)
[2017-12-11] MEDS: LABETALOL HCL 200 MG TABLET (FP) PO SCH ×2 (10:16→22:56)
[2017-12-11] MEDS: PRENATAL VITAMINS W/ FOLIC ACID TABLET (FP) PO SCH (10:16)
[2017-12-11] MEDS: HYDROCHLOROTHIAZIDE 12.5 MG CAPSULE (FP) PO SCH (10:16)
[2017-12-11] MEDS: NICOTINE 14 MG/24 HOURS TOPICAL PATCH TD SCH (10:16)
[2017-12-11] MEDS: LOSARTAN POTASSIUM 100 MG TABLET PO SCH (10:16)
--- NOTE | 2017-12-11 16:03 | PN ---
S CIWA - CIWA Score Nausea/Vomitin Muscle Tremors: 3 Anxiety: 3 Agitation: 3 Paroxysmal Sweats: 3 Orientation: 0-Oriented Tacttile Disturbances: 1-Very Mild Itch/Numbness Auditory Disturbances: 0-None Visual Disturbances: 0-None Headache: 1-Very Mild CIWA-Ar Total Score: 16 S Progress Note (SOAP) Subjective: Sweating, headache Objective: 12/11/17 16:01 Last Vital Signs Temp Pulse Resp BP Pulse Ox 98.0 F 84 20 153/84 12/11/17 14:48 12/11/17 14:48 12/11/17 14:48 12/11/17 14:48 Laboratory Tests 12/09/17 12/10/17 12/10/17 23:45 07:50 07:50 WBC 4.6 RBC 4.36 Hgb 12.7 Hct 38.8 MCV 88.9 MCH 29.1 MCHC 32.8 RDW 14.1 Plt Count 205 MPV 8.6 Sodium 146 H Potassium 3.9 Chloride 113 H Carbon Dioxide 26 Anion Gap 7 L BUN 15 Creatinine 1.0 D Creat Clearance w eGFR > 60 Random Glucose 94 Calcium 8.0 L Total Bilirubin 0.3 D AST 27 ALT 40 D Alkaline Phosphatase 76 D Total Protein 6.1 L Albumin 3.1 L Urine Color Yellow Urine Appearance Turbid Urine pH 5.0 Ur Specific [place] 1.038 H Urine Protein 1+ H Urine Glucose (UA) Negative Urine Ketones Negative Urine Blood Negative Urine Nitrite Negative Urine Bilirubin Negative Urine Urobilinogen 2.0 Ur Leukocyte Esterase Negative Urine WBC (Auto) None Urine RBC (Auto) None Urine Mucus Many RPR Titer 12/10/17 07:50 WBC RBC Hgb Hct MCV MCH MCHC RDW Plt Count MPV Sodium Potassium Chloride Carbon Dioxide Anion Gap BUN Creatinine Creat Clearance w eGFR Random Glucose Calcium Total Bilirubin AST ALT Alkaline Phosphatase Total Protein Albumin Urine Color Urine Appearance Urine pH Ur Specific [place] Urine Protein Urine Glucose (UA) Urine Ketones Urine Blood Urine Nitrite Urine Bilirubin Urine Urobilinogen Ur Leukocyte Esterase Urine WBC (Auto) Urine RBC (Auto) Urine Mucus RPR Titer Nonreactive Labs reviewed: UA shows proteinuria Assessment: 12/11/17 16:02 Withdrawal symptoms Noted with proteinuria Plan: Continue detox Proteinuria: encouraged PO water hydration, repeat UA
[2017-12-11 22:03] LABS: URINE APPEARANCE CLEAR; URINE BILIRUBIN NEGATIVE (<2.0 mg/dL); URINE COLOR LTYELLOW; URINE GLUCOSE (UA) NEGATIVE (NEGATIVE); URINE KETONE NEGATIVE (NEGATIVE); URINE LEUK ESTERASE NEGATIVE (NEGATIVE); URINE NITRITE NEGATIVE (NEGATIVE); URINE PROTEIN NEGATIVE (NEGATIVE); URINE UROBILINOGEN NEGATIVE mg/dL (0.2-1.0)
[2017-12-11] MEDS: chlordiazePOXIDE 5 MG CAPSULE PO SCH (22:56)
[2017-12-11] MEDS: THIAMINE HCL 100 MG TABLET (FP) PO SCH (22:56)
[2017-12-12] MEDS: chlordiazePOXIDE 5 MG CAPSULE PO SCH ×3 (05:21→18:16)
[2017-12-12] MEDS: HYDROCHLOROTHIAZIDE 12.5 MG CAPSULE (FP) PO SCH (10:53)
[2017-12-12] MEDS: LABETALOL HCL 200 MG TABLET (FP) PO SCH ×2 (10:54→22:11)
[2017-12-12] MEDS: LOSARTAN POTASSIUM 100 MG TABLET PO SCH (10:54)
[2017-12-12] MEDS: PRENATAL VITAMINS W/ FOLIC ACID TABLET (FP) PO SCH (10:54)
[2017-12-12] MEDS: NICOTINE 14 MG/24 HOURS TOPICAL PATCH TD SCH (10:54)
--- NOTE | 2017-12-12 17:05 | PN ---
BHS Progress Note (SOAP) Subjective: Sleepless Shakes sweats Objective: 12/12/17 17:02 Sleeping, arousable to verbal stimuli Vital Signs Temperature 97.9 F 12/12/17 14:04 Pulse Rate 83 12/12/17 14:04 Respiratory Rate 20 12/12/17 14:04 Blood Pressure 162/99 12/12/17 14:04 O2 Sat by Pulse Oximetry (%) Elevated BP, denies symptons Assessment: 12/12/17 17:04 Withdrawal sx Plan: continue detox continue increased hydration
--- NOTE | 2017-12-12 20:34 | PN ---
[facility] Progress Note Note: Patient was seen and examined with complaint of right knee abrasion. Vital Signs Temperature 97.8 F 12/12/17 18:20 Pulse Rate 80 12/12/17 18:20 Respiratory Rate 18 12/12/17 18:20 Blood Pressure 138/77 12/12/17 18:20 O2 Sat by Pulse Oximetry (%) Action: Bacitracin topical appication BID ordered.
[2017-12-12] MEDS: chlordiazePOXIDE HCL 10 MG CAPSULE PO SCH (22:11)
[2017-12-12] MEDS: THIAMINE HCL 100 MG TABLET (FP) PO SCH (22:11)
[2017-12-12] MEDS: BACITRACIN 0.9 GM PACKET TP SCH (22:12)
[2017-12-13] MEDS: chlordiazePOXIDE HCL 10 MG CAPSULE PO SCH ×2 (05:19→10:09)
[2017-12-13 09:10] VITALS: BP 145/84; PULSE 77; TEMP 97.1
[2017-12-13] MEDS: HYDROCHLOROTHIAZIDE 12.5 MG CAPSULE (FP) PO SCH (10:09)
[2017-12-13] MEDS: NICOTINE 14 MG/24 HOURS TOPICAL PATCH TD SCH (10:09)
[2017-12-13] MEDS: BACITRACIN 0.9 GM PACKET TP SCH (10:09)
[2017-12-13] MEDS: PRENATAL VITAMINS W/ FOLIC ACID TABLET (FP) PO SCH (10:09)
[2017-12-13] MEDS: LOSARTAN POTASSIUM 100 MG TABLET PO SCH (10:09)
[2017-12-13] MEDS: LABETALOL HCL 200 MG TABLET (FP) PO SCH (10:10)
--- NOTE | 2017-12-13 22:49 | PN ---
BHS Progress Note (SOAP) Subjective: Patient denies current Detox symptoms and reports that he feels well overall. Objective: PATIENT A & O X 3, OBSERVED AMBULATING ON UNIT. NO ACUTE DISTRESS. 12/13/17 22:48 Vital Signs Temperature 97.1 F L 12/13/17 09:09 Pulse Rate 77 12/13/17 09:09 Respiratory Rate 18 12/13/17 09:09 Blood Pressure 145/84 12/13/17 09:09 O2 Sat by Pulse Oximetry (%) Laboratory Tests 12/09/17 12/10/17 12/10/17 23:45 07:50 07:50 WBC 4.6 RBC 4.36 Hgb 12.7 Hct 38.8 MCV 88.9 MCH 29.1 MCHC 32.8 RDW 14.1 Plt Count 205 MPV 8.6 Sodium 146 H Potassium 3.9 Chloride 113 H Carbon Dioxide 26 Anion Gap 7 L BUN 15 Creatinine 1.0 D Creat Clearance w eGFR > 60 Random Glucose 94 Calcium 8.0 L Total Bilirubin 0.3 D AST 27 ALT 40 D Alkaline Phosphatase 76 D Total Protein 6.1 L Albumin 3.1 L Urine Color Yellow Urine Appearance Turbid Urine pH 5.0 Ur Specific [place] 1.038 H Urine Protein 1+ H Urine Glucose (UA) Negative Urine Ketones Negative Urine Blood Negative Urine Nitrite Negative Urine Bilirubin Negative Urine Urobilinogen 2.0 Ur Leukocyte Esterase Negative Urine WBC (Auto) None Urine RBC (Auto) None Urine Mucus Many RPR Titer 12/10/17 12/11/17 07:50 17:26 WBC RBC Hgb Hct MCV MCH MCHC RDW Plt Count MPV Sodium Potassium Chloride Carbon Dioxide Anion Gap BUN Creatinine Creat Clearance w eGFR Random Glucose Calcium Total Bilirubin AST ALT Alkaline Phosphatase Total Protein Albumin Urine Color Ltyellow Urine Appearance Clear Urine pH 7.0 D Ur Specific [place] 1.015 Urine Protein Negative Urine Glucose (UA) Negative Urine Ketones Negative Urine Blood Negative Urine Nitrite Negative Urine Bilirubin Negative Urine Urobilinogen Negative Ur Leukocyte Esterase Negative Urine WBC (Auto) Urine RBC (Auto) Urine Mucus RPR Titer Nonreactive LABS NOTED. Assessment: 12/13/17 22:49 COMPLETION OF DETOX REGIMEN. Plan: PATIENT SCHEDULED FOR DISCHARGE FROM DETOX UNIT TODAY.
--- NOTE | 2017-12-13 22:53 | DS ---
[facility] Detox Discharge Summary Admission Date: 12/09/17 Discharge Date: 12/13/17 - History Present History: Alcohol Dependence, Cocaine Dependence Additional Comments: NO BEDS ARE AVAILABLE AT [facility] AT THIS TIME, PATIENT WILL GO HOME FOR TIME BEING, THEN CONTACT [facility] ADMISSION DEPT. STARTING TOMORROW AM TO INQUIRE ABOUT POSSIBLE BED AVAILABILITY AT THAT TIME. PATIENT WAS DISCHARGED FROM DETOX UNIT IN STABLE MEDICAL CONDITION. Pertinent Past History: Depression, HTN, Nicotine Dependence, Insomnia. - Physical Exam Results Vital Signs: Vital Signs Temperature 97.1 F L 12/13/17 09:09 Pulse Rate 77 12/13/17 09:09 Respiratory Rate 18 12/13/17 09:09 Blood Pressure 145/84 12/13/17 09:09 O2 Sat by Pulse Oximetry (%) Pertinent Admission Physical Exam Findings: WITHDRAWAL SYMPTOMS. Laboratory Tests 12/09/17 12/10/17 12/10/17 23:45 07:50 07:50 WBC 4.6 RBC 4.36 Hgb 12.7 Hct 38.8 MCV 88.9 MCH 29.1 MCHC 32.8 RDW 14.1 Plt Count 205 MPV 8.6 Sodium 146 H Potassium 3.9 Chloride 113 H Carbon Dioxide 26 Anion Gap 7 L BUN 15 Creatinine 1.0 D Creat Clearance w eGFR > 60 Random Glucose 94 Calcium 8.0 L Total Bilirubin 0.3 D AST 27 ALT 40 D Alkaline Phosphatase 76 D Total Protein 6.1 L Albumin 3.1 L Urine Color Yellow Urine Appearance Turbid Urine pH 5.0 Ur Specific [place] 1.038 H Urine Protein 1+ H Urine Glucose (UA) Negative Urine Ketones Negative Urine Blood Negative Urine Nitrite Negative Urine Bilirubin Negative Urine Urobilinogen 2.0 Ur Leukocyte Esterase Negative Urine WBC (Auto) None Urine RBC (Auto) None Urine Mucus Many RPR Titer 12/10/17 12/11/17 07:50 17:26 WBC RBC Hgb Hct MCV MCH MCHC RDW Plt Count MPV Sodium Potassium Chloride Carbon Dioxide Anion Gap BUN Creatinine Creat Clearance w eGFR Random Glucose Calcium Total Bilirubin AST ALT Alkaline Phosphatase Total Protein Albumin Urine Color Ltyellow Urine Appearance Clear Urine pH 7.0 D Ur Specific [place] 1.015 Urine Protein Negative Urine Glucose (UA) Negative Urine Ketones Negative Urine Blood Negative Urine Nitrite Negative Urine Bilirubin Negative Urine Urobilinogen Negative Ur Leukocyte Esterase Negative Urine WBC (Auto) Urine RBC (Auto) Urine Mucus RPR Titer Nonreactive LABS NOTED. - Treatment Hospital Course: Detox Protocol Followed, Detoxed Safely, Responded well, Discharged Condition Good, Rehab Referral Accepted Patient has Accepted a Rehab Referral to: [facility] ([place], [place] . - Medication Discharge Medications: Ambulatory Orders Citalopram Hydrobromide [Celexa -] 20 mg PO DAILY #30 tablet 09/26/17 Labetalol HCl [Normodyne -] 200 mg PO BID 30 Days #60 tablet 12/13/17 Losartan/Hydrochlorothiazide [Hyzaar 100-12.5 Tablet] 1 tab PO DAILY 30 Days # 30 tablet 12/13/17 - Diagnosis (1) Alcohol dependence with uncomplicated intoxication Status: Acute (2) Cocaine dependence Status: Chronic Qualifiers: Substance use status: uncomplicated Qualified Code(s): F14.20 - Cocaine dependence, uncomplicated (3) Depression Status: Chronic Qualifiers: Depression Type: unspecified Qualified Code(s): F32.9 - Major depressive disorder, single episode, unspecified (4) Nicotine dependence Status: Chronic Qualifiers: Nicotine product type: cigarettes Substance use status: uncomplicated Qualified Code(s): F17.210 - Nicotine dependence, cigarettes, uncomplicated (5) Hypertension Status: Chronic Qualifiers: Hypertension type: essential hypertension Qualified Code(s): I10 - Essential (primary) hypertension (6) Insomnia Status: Acute Qualifiers: Insomnia type: unspecified Qualified Code(s): G47.00 - Insomnia, unspecified - AMA Did Patient Leave Against Medical Advice: No
== END 2017-12-13 11:45 | disposition home or self-care (01) | DRG 774 ==
LOC: YASAS 14:07 → Y3N 21:34
PROVIDERS: ADMIT Internal Medicine; ATTEND Internal Medicine
PROC: HZ2ZZZZ Detoxification Services for Substance Abuse Treatment (ICD-10-PCS; principal; 2017-12-09)
DX: F10.230 Alcohol dependence with withdrawal, uncomplicated (principal); F14.20 Cocaine dependence, uncomplicated; F17.210 Nicotine dependence, cigarettes, uncomplicated; F32.9 Major depressive disorder, single episode, unspecified; F19.24 Other psychoactive substance dependence with psychoactive substance-induced mood disorder; I10 Essential (primary) hypertension; G47.00 Insomnia, unspecified; R80.9 Proteinuria, unspecified
CPT/HCPCS: 36415; 80053; 81003; 81015; 85027; 86593; 93005; 93010

== ENCOUNTER 2017-12-19 11:23 | Inpatient (IN) | payer OTHER ==
[2017-12-19 11:59] VITALS: BMI 29.9
--- NOTE | 2017-12-19 14:14 | HP ---
[facility] Rehab Assess/Revision - Admission History Admitted to Rehab from: [facility] Date of Admission to Rehab: 12/19/17 - Vital signs Vital Signs: Vital Signs Period Temp Pulse Resp BP Sys/Velazquez Pulse Ox Last 24 Hr 96.7 F 64 18 156/86 - Findings Detox History & Physical reviewed: Yes Concur with findings: Yes Comments/Additional Findings: completed alcohol detox 12/13/17 return 12/19/17 for alcohol rehab, rehab admission as per protocol Inpatient Rehab Admission - Rehab Admission Criteria Previous failed treatment: Yes Poor recovery environment: Yes Comorbidities: Yes Lacks judgement: No Patient is meeting Inpatient Rehab admission criteria:: Yes
[2017-12-19] MEDS ORDERED: LOPERAMIDE HCL 2 MG CAPSULE PO PRN (14:16)
[2017-12-19] MEDS ORDERED: P-EPHED 60MG/TRIPROLIDI 2.5MG TABLET PO PRN (14:16)
[2017-12-19] MEDS ORDERED: MAGNESIUM HYDROX 2400MG/30ML ORAL SUSPENSION 30 ML CUP PO PRN (14:16)
[2017-12-19] MEDS ORDERED: ACETAMINOPHEN 325 MG TABLET (FP) PO PRN (14:16)
[2017-12-19] MEDS ORDERED: MAG HYDROX/AL HYDROX/SIMETH 30 ML UNIT-DOSE CUP PO PRN (14:16)
[2017-12-19] MEDS ORDERED: MENTHOL/PHENOL 1 EACH UD MM PRN (14:16)
[2017-12-19] MEDS ORDERED: MAGNESIUM CITRATE 300 ML BOTTLE PO PRN (14:16)
[2017-12-19] MEDS ORDERED: IBUPROFEN 400 MG TABLET (FP) PO PRN (14:16)
[2017-12-19] MEDS ORDERED: NICOTINE POLACRILEX 2 MG GUM BUC PRN (14:16)
[2017-12-19] MEDS ORDERED: guaiFENesin/D-METHORPHAN HB 10 ML UNIT-DOSE CUPS PO PRN (14:16)
[2017-12-19] MEDS ORDERED: cloNIDine HCL 0.1 MG TABLET PO PRN (14:20)
[2017-12-19] MEDS ORDERED: COLLOIDAL OATMEAL 1 BAR EACH TP PRN (14:22)
[2017-12-19] MEDS: LABETALOL HCL 200 MG TABLET (FP) PO SCH (21:39)
[2017-12-19] MEDS: NICOTINE 14 MG/24 HOURS TOPICAL PATCH TD SCH (21:41)
[2017-12-19] MEDS ORDERED: THIAMINE HCL 100 MG TABLET (FP) PO SCH (22:00)
[2017-12-19] MEDS ORDERED: MELATONIN 5 MG TABLETS PO PRN (22:00)
[2017-12-19] MEDS ORDERED: MINERAL OIL/PETROLAT/WATER TOPICAL CREAM 113 GM JAR TP SCH (22:00)
[2017-12-20 00:29] VITALS: TEMP 97.8
[2017-12-20 07:08] VITALS: BP 121/74; PULSE 64
--- NOTE | 2017-12-20 08:02 | HP ---
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 Smokes cigarettes 1 ppd Psychiatric History: Denies history of previous psychiatric treatment Physical/Sexual Abuse/Trauma History: Denies historyof emotional, physical or sexual abuse as well as DV relationship. No service Additional Comment: Denies criminal history Vital Signs: Vital Signs - 24 hr 12/19/17 12/19/17 12/20/17 11:58 18:00 01:01 Temperature 96.7 F L 97.8 F Pulse Rate 64 63 Respiratory 18 18 18 Rate Blood Pressure 156/86 150/84 12/20/17 12/20/17 03:30 07:07 Temperature 97.8 F Pulse Rate 64 Respiratory 18 18 Rate Blood Pressure 121/74 Allergies/Adverse Reactions: Allergies Allergy/AdvReac Type Severity Reaction Status Date / Time Penicillins Allergy Severe Swelling Verified 12/19/17 13:05 Date of last physical exam: 12/09/17 Concur with the findings of this exam: Yes - Substance Abuse/Tx History Hx Alcohol Use: Yes Hx Substance Use: Yes Substance Use Type: Alcohol (Started drinking alcohol at age 28, consumes 4-5x 40oz of beer daily. Last drank on 12/09/17), Cocaine (Started smoking crack cocaine at age 38, consumes $300 worth 1-2 times weekly. Last smoked on 12/08/17) Hx Substance Use Treatment: Yes (3 previous inpt detox @ [facility]) Mental Status Exam - Mental Status Exam Alert and Oriented to: Time, Place, Person Cognitive Function: Fair Patient Appearance: Well Groomed Mood: Hopeful, Euthymic Patient Behavior: Cooperative Speech Pattern: Clear Voice Loudness: Normal Thought Process: Intact, Goal Oriented Thought Disorder: Not Present Hallucinations: Denies Suicidal Ideation: Denies Homicidal Ideation: Denies Insight/Judgement: Fair Sleep: Well Appetite: Good Muscle strength/Tone: Normal Gait/Station: Normal Psychiatric Findings - Problem List ([place] 1, 2,3) (1) Alcohol dependence Current Visit: Yes Status: Acute (2) Cocaine dependence Current Visit: No Status: Chronic Qualifiers: Substance use status: uncomplicated Qualified Code(s): F14.20 - Cocaine dependence, uncomplicated (3) Nicotine dependence Current Visit: No Status: Chronic Qualifiers: Nicotine product type: cigarettes Substance use status: uncomplicated Qualified Code(s): F17.210 - Nicotine dependence, cigarettes, uncomplicated (4) Hypertension Current Visit: No Status: Chronic Qualifiers: Hypertension type: essential hypertension Qualified Code(s): I10 - Essential (primary) hypertension - Initial Treatment Plan Initial Treatment Plan: Monitor progress
[2017-12-20] MEDS ORDERED: HYDROCHLOROTHIAZIDE 12.5 MG CAPSULE (FP) PO SCH (10:00)
[2017-12-20] MEDS ORDERED: PRENATAL VITAMINS W/ FOLIC ACID TABLET (FP) PO SCH (10:00)
[2017-12-20] MEDS ORDERED: LOSARTAN POTASSIUM 50 MG TABLET (FP) PO SCH (10:00)
[2017-12-20 10:24] LABS: HEMATOCRIT 39.6 % (35.4-49); HEMOGLOBIN 13.1 GM/dL (11.7-16.9); MCH 29.3 pg (25.7-33.7); MEAN CELL VOLUME 88.9 fl (80-96); PLATELET COUNT 236 K/MM3 (134-434); RBC 4.45 M/mm3 (4.00-5.60); WHITE BLOOD COUNT 4.8 K/mm3 (4.0-10.0)
[2017-12-20] MEDS: NICOTINE 14 MG/24 HOURS TOPICAL PATCH TD SCH (10:26)
[2017-12-20] MEDS: LABETALOL HCL 200 MG TABLET (FP) PO SCH (10:26)
[2017-12-20 11:57] LABS: CHLORIDE 106 mmol/L (98-107); POTASSIUM 4.2 mmol/L (3.5-5.1); SODIUM 140 mmol/L (136-145)
[2017-12-20 12:36] LABS: ALBUMIN 3.6 g/dl (3.4-5.0); ALK PHOS 66 U/L (45-117); ANION GAP 9 (8-16); BILIRUBIN,TOTAL 0.2 mg/dL (0.2-1.0); BLOOD UREA NITROGEN 17 mg/dL (7-18); CALCIUM 8.9 mg/dL (8.5-10.1); CO2 25 mmol/L (21-32); GLUCOSE,RANDOM 90 mg/dL (74-106); SGOT/AST 32 U/L (15-37); SGPT/ALT 52 U/L (12-78)
--- NOTE | 2017-12-26 16:35 | EKG ---
Test Reason : Blood Pressure : / mmHG Vent. Rate : 079 BPM Atrial Rate : 079 BPM P-R Int : 156 ms QRS Dur : 102 ms QT Int : 394 ms P-R-T Axes : 064 024 029 degrees QTc Int : 451 ms NORMAL SINUS RHYTHM POSSIBLE LEFT ATRIAL ENLARGEMENT BORDERLINE ECG WHEN COMPARED WITH ECG OF 09-DEC-2017 23:00, NO SIGNIFICANT CHANGE WAS FOUND Confirmed by LUKE SANCHEZ MD ([id number]) on 12/26/2017 4:35:12 PM Referred By: Confirmed By:LUKE SANCHEZ MD
== END 2017-12-20 19:00 | disposition left against medical advice (07) | DRG 770 ==
LOC: YASAS 11:23 → Y5N 14:53
PROVIDERS: ADMIT Psychiatry & Neurology Psychiatry; ATTEND Psychiatry & Neurology Psychiatry
PROC: HZ42ZZZ Group Counseling for Substance Abuse Treatment, Cognitive-Behavioral (ICD-10-PCS; principal; 2017-12-19)
DX: F10.20 Alcohol dependence, uncomplicated (principal); F14.20 Cocaine dependence, uncomplicated; F17.210 Nicotine dependence, cigarettes, uncomplicated; I10 Essential (primary) hypertension
CPT/HCPCS: 36415; 80053; 85027; 86593; 87389; 93005; 93010

== ENCOUNTER 2018-05-02 09:41 | Inpatient (IN) | payer OTHER ==
[2018-05-02 10:57] VITALS: BMI 29.8
--- NOTE | 2018-05-02 11:44 | HP ---
CIWA Score - CIWA Score Nausea/Vomitin Muscle Tremors: 2 Anxiety: 2 Agitation: 2 Paroxysmal Sweats: 1-Minimal Palms Moist Orientation: 0-Oriented Tacttile Disturbances: 1-Very Mild Itch/Numbness Auditory Disturbances: 1-Very Mild Visual Disturbances: 1-Very Mild Sensitivity Headache: 2-Mild CIWA-Ar Total Score: 15 Admission ROS BHS - HPI Chief Complaint: i need help to stop drinking alcohol and cocaine Allergies/Adverse Reactions: Allergies Allergy/AdvReac Type Severity Reaction Status Date / Time Penicillins Allergy Severe Swelling Verified 05/02/18 11:21 History of Present Illness: this 62 years male with alcohol dependence and cocaine dependence,seeking detox ,withdrawal symptom,last detox 12/09/17 to 12/13/17 weight loss hypertension non compliance nicotine dependence weight loss multiple admissions in detox longest period of sobriety 10 years Exam Limitations: No Limitations - Ebola screening Have you traveled outside of the country in the last 21 days: No (N) Have you had contact with anyone from an Ebola affected area: No Have you been sick,other than usual withdrawal symptoms: No Do you have a fever: No - Review of Systems Constitutional: Loss of Appetite, Malaise, Night Sweats, Changes in sleep, Weakness EENT: reports: Nose Congestion Respiratory: reports: No Symptoms reported Cardiac: reports: No Symptoms Reported GI: reports: Nausea, Poor Appetite, Abdominal cramping : reports: No Symptoms Reported Integumentary: reports: Dryness Neuro: reports: No Symptoms reported, Tremors Endocrine: reports: No Symptoms Reported Hematology: reports: No Symptoms Reported Psychiatric: reports: Judgement Intact, Mood/Affect Appropiate, Orientated x3, Depressed (insomnia) Patient History - Patient Medical History Hx Anemia: No Hx Asthma: No Hx Chronic Obstructive Pulmonary Disease (COPD): No Hx Cancer: No Hx Cardiac Disorders: No Hx Congestive Heart Failure: No Hx Hypertension: Yes (non complaice with medication) Hx Hypercholesterolemia: No Hx Pacemaker: No HX Cerebrovascular Accident: No Hx Seizures: No Hx Dementia: No Hx Diabetes: No Hx Gastrointestinal Disorders: No Hx Liver Disease: No Hx Genitourinary Disorders: No Hx Sexually Transmitted Disorders: No Hx Renal Disease (ESRD): No Hx Thyroid Disease: No Hx Human Immunodeficiency Virus (HIV): No (Negative 2017) Hx Hepatitis C: No Hx Depression: Yes Hx Suicide Attempt: No Hx Bipolar Disorder: No Hx Schizophrenia: No Other Medical History: no suicidal,no homicidal - Patient Surgical History Past Surgical History: No Hx Neurologic Surgery: No Hx Cataract Extraction: No Hx Cardiac Surgery: No Hx Lung Surgery: No Hx Breast Surgery: No Hx Breast Biopsy: No Hx Abdominal Surgery: No Hx Appendectomy: No Hx Cholecystectomy: No Hx Genitourinary Surgery: No Hx Section: No Hx Orthopedic Surgery: No Anesthesia Reaction: No - PPD History Previous Implant?: Yes Documented Results: Negative w/proof Date: 09/27/17 Results: 0 mm PPD to be Administered?: No - Smoking Cessation Smoking history: Current every day smoker Have you smoked in the past 12 months: Yes Aproximately how many cigarettes per day: 20 Hx Chewing Tobacco Use: No Initiated information on smoking cessation: Yes 'Breaking Loose' booklet given: 05/02/18 - Substance & Tx. History Hx Alcohol Use: Yes Hx Substance Use: Yes Substance Use Type: Alcohol, Cocaine Hx Substance Use Treatment: Yes ([facility] 12/09/17 to 12/13/17) - Substances Abused Alcohol Route: Oral Frequency: Daily Amount used: fifth bourbon Age of first use: 28 Date of Last Use: 05/01/18 Crack Route: Smoking Frequency: Daily Amount used: $100 and up Age of first use: 36 Date of Last Use: 04/30/18 Family Disease History - Family Disease History Family Disease History: CA: Mother (lymphoma, 04/2016), Other: Father (1963 ) Admission Physical Exam BHS - Vital Signs Vital Signs: Vital Signs - 24 hr 05/02/18 10:51 Temperature 96.4 F L Pulse Rate 68 Respiratory 18 Rate Blood Pressure 194/112 H - Physical General Appearance: Yes: Moderate Distress, Tremorous, Irritable, Sweating, Anxious HEENTM: Yes: Normal ENT Inspection, CODI, Pharynx Normal Respiratory: Yes: Lungs Clear, Normal Breath Sounds, No Respiratory Distress Neck: Yes: Within Normal Limits Breast: Yes: Breast Exam Deferred Cardiology: Yes: Within Normal Limits, Regular Rhythm, Regular Rate, S1, S2 Abdominal: Yes: Within Normal Limits, Normal Bowel Sounds, Non Tender, Soft Genitourinary: Yes: Within Normal Limits Back: Yes: Muscle Spasm Musculoskeletal: Yes: Back pain, Muscle Pain Extremities: Yes: Tremors 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: Yes: wellness specialist II-XII NML intact, Alert, Motor Strength 5/5 Integumentary: Yes: Dry Lymphatic: Yes: Within Normal Limits - Diagnostic (1) Alcohol dependence with uncomplicated withdrawal Current Visit: Yes Status: Acute (2) Insomnia Current Visit: No Status: Acute Qualifiers: Insomnia type: unspecified Qualified Code(s): G47.00 - Insomnia, unspecified (3) Cocaine dependence Current Visit: Yes Status: Acute Qualifiers: Substance use status: uncomplicated Qualified Code(s): F14.20 - Cocaine dependence, uncomplicated (4) Depression Current Visit: No Status: Chronic Qualifiers: Depression Type: unspecified Qualified Code(s): F32.9 - Major depressive disorder, single episode, unspecified (5) Hypertension Current Visit: No Status: Chronic Qualifiers: Hypertension type: essential hypertension Qualified Code(s): I10 - Essential (primary) hypertension (6) Nicotine dependence Current Visit: Yes Status: Acute Qualifiers: Nicotine product type: cigarettes Substance use status: uncomplicated Qualified Code(s): F17.210 - Nicotine dependence, cigarettes, uncomplicated Cleared for Admission BHS - Detox or Rehab [facility] Level of Care: Medically Managed Detox Regimen/Protocol: Librium [facility] Breath Alcohol Content Breath Alcohol Content: 0 Urine Drug Screen - Results Drug Screen Negative: No Urine Drug Screen Results: ABIASI-Cocaine
[2018-05-02] MEDS ORDERED: LOPERAMIDE HCL 2 MG CAPSULE PO PRN (11:50)
[2018-05-02] MEDS ORDERED: MENTHOL/PHENOL 1 EACH UD MM PRN (11:50)
[2018-05-02] MEDS ORDERED: IBUPROFEN 400 MG TABLET (FP) PO PRN (11:50)
[2018-05-02] MEDS ORDERED: P-EPHED 60MG/TRIPROLIDI 2.5MG TABLET PO PRN (11:50)
[2018-05-02] MEDS ORDERED: ACETAMINOPHEN 325 MG TABLET (FP) PO PRN (11:50)
[2018-05-02] MEDS ORDERED: MAG HYDROX/AL HYDROX/SIMETH 30 ML UNIT-DOSE CUP PO PRN (11:50)
[2018-05-02] MEDS ORDERED: MAGNESIUM HYDROX 2400MG/30ML ORAL SUSPENSION 30 ML CUP PO PRN (11:50)
[2018-05-02] MEDS ORDERED: hydrOXYzine PAMOATE 50 MG CAPSULE (FP) PO PRN (11:50)
[2018-05-02] MEDS ORDERED: guaiFENesin/D-METHORPHAN HB 10 ML UNIT-DOSE CUPS PO PRN (11:50)
[2018-05-02] MEDS ORDERED: MAGNESIUM CITRATE 300 ML BOTTLE PO PRN (11:50)
[2018-05-02] MEDS ORDERED: chlordiazePOXIDE HCL 25 MG CAPSULE PO PRN (11:50)
[2018-05-02] MEDS ORDERED: PATIENT'S OWN MEDICATION (NON-FORMULARY) (Losartan/Hydrochlorothiazide [Hyzaar 100-12.5 Ta PO SCH (12:00)
[2018-05-02] MEDS ORDERED: LOSARTAN POTASSIUM 50 MG TABLET (FP) PO SCH (12:05)
[2018-05-02] MEDS: LOSARTAN POTASSIUM 50 MG TABLET (FP) PO SCH (13:36)
[2018-05-02] MEDS: LABETALOL HCL 200 MG TABLET (FP) PO SCH ×2 (13:36→22:36)
[2018-05-02] MEDS: HYDROCHLOROTHIAZIDE 12.5 MG CAPSULE (FP) PO SCH (13:36)
[2018-05-02] MEDS: NICOTINE 21 MG/24 HOURS TOPICAL PATCH TD SCH (13:38)
--- NOTE | 2018-05-02 17:05 | EKG ---
Test Reason : Blood Pressure : / mmHG Vent. Rate : 069 BPM Atrial Rate : 069 BPM P-R Int : 140 ms QRS Dur : 090 ms QT Int : 398 ms P-R-T Axes : 074 012 033 degrees QTc Int : 426 ms NORMAL SINUS RHYTHM POSSIBLE LEFT ATRIAL ENLARGEMENT BORDERLINE ECG WHEN COMPARED WITH ECG OF 20-DEC-2017 14:16, NO SIGNIFICANT CHANGE WAS FOUND Confirmed by MD GILMER, DEVIN ([id number]) on 05/02/2018 5:05:22 PM Referred By: Confirmed By:DEVIN SCHERER MD
[2018-05-02] MEDS: chlordiazePOXIDE HCL 25 MG CAPSULE PO SCH ×2 (17:25→22:31)
[2018-05-02 18:20] LABS: URINE APPEARANCE TURBID; URINE BILIRUBIN NEGATIVE (<2.0 mg/dL); URINE COLOR AMBER; URINE GLUCOSE (UA) NEGATIVE (NEGATIVE); URINE KETONE NEGATIVE (NEGATIVE); URINE LEUK ESTERASE NEGATIVE (NEGATIVE); URINE NITRITE NEGATIVE (NEGATIVE); URINE PROTEIN NEGATIVE (NEGATIVE)
--- NOTE | 2018-05-02 18:50 | CONSULT ---
[facility] Psychiatric Consult - Data Date of interview: 05/02/18 Admission source: [facility] Identifying data: This is one of multiple admissions to [facility] for this 62 y/ o AA male seeking detoxification treatment on . Drugs of abuse : alcohol and cocaine. 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 Substance Abuse History: Confirmed by the patient in this interview. Details in current [facility] report : Smoking history: Current every day smoker. Have you smoked in the past 12 months: Yes. Aproximately how many cigarettes per day: 20. Hx Chewing Tobacco Use: No. Initiated information on smoking cessation: Yes. 'Breaking Loose' booklet given: 05/02/18. - Substance & Tx. History. Hx Alcohol Use: Yes. Hx Substance Use: Yes. Substance Use Type: Alcohol, Cocaine. Hx Substance Use Treatment: Yes ([facility] 12/09/17 to 12/13/17). - Substances Abused. Alcohol. Route: Oral. Frequency: Daily. Amount used: fifth bourbon. Age of first use: 28. Date of Last Use: 05/01/18. Crack. Route: Smoking. Frequency: Daily. Amount used: $100 and up. Age of first use : 36. Date of Last Use: 04/30/18 Medical History: Hypertension. Psychiatric History: No history of psychiatric hospitalizations. Patient reports that he was recently retained at [facility] for extended observation ([facility] ) for a period of 72 hours and discharged. Mr Coreas denies history of suicide attempts. Physical/Sexual Abuse/Trauma History: Patient denies. Additional Comment: Urine Drug Screen Results: ABISAI-Cocaine.Noted. Mental Status Exam - Mental Status Exam Alert and Oriented to: Time, Place, Person Cognitive Function: Good Patient Appearance: Well Groomed Mood: Hopeful, Euthymic Affect: Appropriate, Normal Range Patient Behavior: Cooperative Speech Pattern: Clear, Appropriate Voice Loudness: Normal Thought Process: Intact, Goal Oriented Thought Disorder: Not Present Hallucinations: Denies Suicidal Ideation: Denies Homicidal Ideation: Denies Insight/Judgement: Poor Sleep: Well Appetite: Good Muscle strength/Tone: Normal Gait/Station: Normal Psychiatric Findings - Problem List ([place] 1, 2,3) (1) Alcohol dependence with uncomplicated withdrawal Current Visit: Yes Status: Acute (2) Cocaine dependence Current Visit: Yes Status: Acute Qualifiers: Substance use status: uncomplicated Qualified Code(s): F14.20 - Cocaine dependence, uncomplicated (3) Nicotine dependence Current Visit: Yes Status: Acute Qualifiers: Nicotine product type: cigarettes Substance use status: uncomplicated Qualified Code(s): F17.210 - Nicotine dependence, cigarettes, uncomplicated - Initial Treatment Plan Initial Treatment Plan: Psychoeducation.Sleep hygiene. AA meetings. Group + supportive psychotherapy. Observation.
[2018-05-02] MEDS ORDERED: MELATONIN 5 MG TABLETS PO PRN (22:00)
[2018-05-02] MEDS: THIAMINE HCL 100 MG TABLET (FP) PO SCH (22:31)
[2018-05-02] MEDS ORDERED: LABETALOL HCL 100 MG TABLET (FP) ONE (22:33)
[2018-05-03] MEDS: chlordiazePOXIDE HCL 25 MG CAPSULE PO SCH ×4 (05:35→22:29)
[2018-05-03] MEDS: LABETALOL HCL 200 MG TABLET (FP) PO SCH ×2 (10:37→22:29)
[2018-05-03] MEDS: PRENATAL VITAMINS W/ FOLIC ACID TABLET (FP) PO SCH (10:37)
[2018-05-03] MEDS: NICOTINE 21 MG/24 HOURS TOPICAL PATCH TD SCH (10:37)
[2018-05-03] MEDS: HYDROCHLOROTHIAZIDE 12.5 MG CAPSULE (FP) PO SCH (10:37)
[2018-05-03] MEDS: LOSARTAN POTASSIUM 50 MG TABLET (FP) PO SCH (10:37)
[2018-05-03 10:44] LABS: HEMATOCRIT 44.3 % (35.4-49); HEMOGLOBIN 14.2 GM/dL (11.7-16.9); MCH 28.8 pg (25.7-33.7); MEAN CELL VOLUME 89.9 fl (80-96); MEAN PLT VOLUME 8.9 fl (7.5-11.1); PLATELET COUNT 266 K/MM3 (134-434); RBC 4.93 M/mm3 (4.00-5.60); RDW 14.2 % (11.9-15.9); WHITE BLOOD COUNT 4.3 K/mm3 (4.0-10.0)
[2018-05-03 10:57] LABS: ALBUMIN 3.7 g/dl (3.4-5.0); ALK PHOS 59 U/L (45-117); ANION GAP 4 MMOL/L (8-16); BILIRUBIN,TOTAL 0.3 mg/dL (0.2-1); BLOOD UREA NITROGEN 14 mg/dL (7-18); CALCIUM 9.4 mg/dL (8.5-10.1); CHLORIDE 106 mmol/L (98-107); CO2 32 mmol/L (21-32); CREATININE 1.1 mg/dL (0.55-1.3); GLUCOSE,RANDOM 69 mg/dL (74-106); POTASSIUM 3.6 mmol/L (3.5-5.1); SGOT/AST 18 U/L (15-37); SGPT/ALT 22 U/L (13-61); SODIUM 141 mmol/L (136-145); TOT PROT 7.6 g/dl (6.4-8.2)
--- NOTE | 2018-05-03 11:49 | PN ---
S CIWA - CIWA Score Nausea/Vomitin Muscle Tremors: 4-Moderate,w/Arms Extend Anxiety: 4-Mod. Anxious/Guarded Agitation: 4-Moderately Restless Paroxysmal Sweats: 3 Orientation: 0-Oriented Tacttile Disturbances: 0-None Auditory Disturbances: 0-None Visual Disturbances: 0-None Headache: 0-None Present CIWA-Ar Total Score: 17 BHS Progress Note (SOAP) Subjective: Patient asleep but easily aroused; refused to speak with field underwriter Objective: 05/03/18 11:48 Last Vital Signs Temp Pulse Resp BP Pulse Ox 97.8 F 71 20 115/77 05/03/18 10:47 05/03/18 10:47 05/03/18 10:47 05/03/18 10:47 Laboratory Tests 05/02/18 05/03/18 05/03/18 15:50 06:00 06:00 WBC 4.3 RBC 4.93 Hgb 14.2 Hct 44.3 MCV 89.9 MCH 28.8 MCHC 32.0 RDW 14.2 Plt Count 266 MPV 8.9 Sodium 141 Potassium 3.6 Chloride 106 Carbon Dioxide 32 Anion Gap 4 L BUN 14 Creatinine 1.1 Creat Clearance w eGFR > 60 Random Glucose 69 L Calcium 9.4 Total Bilirubin 0.3 AST 18 ALT 22 Alkaline Phosphatase 59 Total Protein 7.6 Albumin 3.7 Urine Color Kassandra Urine Appearance Turbid Urine pH 6.0 Ur Specific [place] 1.020 Urine Protein Negative Urine Glucose (UA) Negative Urine Ketones Negative Urine Blood Negative Urine Nitrite Negative Urine Bilirubin Negative Urine Urobilinogen 2.0 Ur Leukocyte Esterase Negative Labs reviewed Assessment: 05/03/18 11:48 Withdrawal symptoms Plan: Continue detox Encouraged PO water intake
[2018-05-03] MEDS ORDERED: FLU VACCINE QUAD 60 MCG/0.5 ML (MDV 18-19) IM ONE (12:00)
[2018-05-03] MEDS: THIAMINE HCL 100 MG TABLET (FP) PO SCH (22:29)
[2018-05-04] MEDS: chlordiazePOXIDE HCL 25 MG CAPSULE PO SCH ×2 (05:33→10:12)
[2018-05-04] MEDS: PRENATAL VITAMINS W/ FOLIC ACID TABLET (FP) PO SCH (10:11)
[2018-05-04] MEDS: LOSARTAN POTASSIUM 50 MG TABLET (FP) PO SCH (10:11)
[2018-05-04] MEDS: NICOTINE 21 MG/24 HOURS TOPICAL PATCH TD SCH (10:12)
[2018-05-04] MEDS: LABETALOL HCL 200 MG TABLET (FP) PO SCH ×2 (10:12→22:40)
[2018-05-04] MEDS: HYDROCHLOROTHIAZIDE 12.5 MG CAPSULE (FP) PO SCH (10:12)
--- NOTE | 2018-05-04 11:49 | PN ---
[facility] CIWA - CIWA Score Nausea/Vomitin-Mild Nausea/No Vomiting Muscle Tremors: 3 Anxiety: 3 Agitation: 3 Paroxysmal Sweats: 3 Orientation: 0-Oriented Tacttile Disturbances: 0-None Auditory Disturbances: 0-None Visual Disturbances: 0-None Headache: 1-Very Mild CIWA-Ar Total Score: 14 [facility] Progress Note (SOAP) Subjective: Sweating, anxious Objective: 05/04/18 11:47 Last Vital Signs Temp Pulse Resp BP Pulse Ox 98.1 F 81 18 136/70 05/04/18 10:35 05/04/18 10:35 05/04/18 10:35 05/04/18 10:35 Laboratory Tests 05/02/18 05/03/18 05/03/18 15:50 06:00 06:00 WBC 4.3 RBC 4.93 Hgb 14.2 Hct 44.3 MCV 89.9 MCH 28.8 MCHC 32.0 RDW 14.2 Plt Count 266 MPV 8.9 Sodium 141 Potassium 3.6 Chloride 106 Carbon Dioxide 32 Anion Gap 4 L BUN 14 Creatinine 1.1 Creat Clearance w eGFR > 60 Random Glucose 69 L Calcium 9.4 Total Bilirubin 0.3 AST 18 ALT 22 Alkaline Phosphatase 59 Total Protein 7.6 Albumin 3.7 Urine Color [place]andra Urine Appearance Turbid Urine pH 6.0 Ur Specific [place] 1.020 Urine Protein Negative Urine Glucose (UA) Negative Urine Ketones Negative Urine Blood Negative Urine Nitrite Negative Urine Bilirubin Negative Urine Urobilinogen 2.0 Ur Leukocyte Esterase Negative RPR Titer 05/03/18 06:00 WBC RBC Hgb Hct MCV MCH MCHC RDW Plt Count MPV Sodium Potassium Chloride Carbon Dioxide Anion Gap BUN Creatinine Creat Clearance w eGFR Random Glucose Calcium Total Bilirubin AST ALT Alkaline Phosphatase Total Protein Albumin Urine Color Urine Appearance Urine pH Ur Specific [place] Urine Protein Urine Glucose (UA) Urine Ketones Urine Blood Urine Nitrite Urine Bilirubin Urine Urobilinogen Ur Leukocyte Esterase RPR Titer Nonreactive Labs reviewed Assessment: 05/04/18 11:47 Withdrawal symptoms Plan: Continue detox Encouraged PO water intake
[2018-05-04] MEDS: chlordiazePOXIDE 5 MG CAPSULE PO SCH ×2 (17:20→22:31)
[2018-05-04] MEDS: THIAMINE HCL 100 MG TABLET (FP) PO SCH (22:31)
[2018-05-05] MEDS: chlordiazePOXIDE 5 MG CAPSULE PO SCH ×2 (05:59→10:16)
[2018-05-05] MEDS: HYDROCHLOROTHIAZIDE 12.5 MG CAPSULE (FP) PO SCH (10:16)
[2018-05-05] MEDS: LOSARTAN POTASSIUM 50 MG TABLET (FP) PO SCH (10:16)
[2018-05-05] MEDS: PRENATAL VITAMINS W/ FOLIC ACID TABLET (FP) PO SCH (10:16)
[2018-05-05] MEDS: NICOTINE 21 MG/24 HOURS TOPICAL PATCH TD SCH (10:17)
[2018-05-05] MEDS: LABETALOL HCL 200 MG TABLET (FP) PO SCH ×2 (10:17→22:27)
--- NOTE | 2018-05-05 13:55 | PN ---
BHS Progress Note (SOAP) Subjective: Interrupted sleep, sweating; c/o frequent nocturia (denies dm but stated he drinks a lot of fluids during the daytime) Objective: 05/05/18 13:53 Last Vital Signs Temp Pulse Resp BP Pulse Ox 97.2 F L 85 18 152/83 05/05/18 09:37 05/05/18 09:37 05/05/18 09:37 05/05/18 09:37 Laboratory Tests 05/02/18 05/03/18 05/03/18 15:50 06:00 06:00 WBC 4.3 RBC 4.93 Hgb 14.2 Hct 44.3 MCV 89.9 MCH 28.8 MCHC 32.0 RDW 14.2 Plt Count 266 MPV 8.9 Sodium 141 Potassium 3.6 Chloride 106 Carbon Dioxide 32 Anion Gap 4 L BUN 14 Creatinine 1.1 Creat Clearance w eGFR > 60 Random Glucose 69 L Calcium 9.4 Total Bilirubin 0.3 AST 18 ALT 22 Alkaline Phosphatase 59 Total Protein 7.6 Albumin 3.7 Urine Color [place] Urine Appearance Turbid Urine pH 6.0 Ur Specific [place] 1.020 Urine Protein Negative Urine Glucose (UA) Negative Urine Ketones Negative Urine Blood Negative Urine Nitrite Negative Urine Bilirubin Negative Urine Urobilinogen 2.0 Ur Leukocyte Esterase Negative RPR Titer 05/03/18 06:00 WBC RBC Hgb Hct MCV MCH MCHC RDW Plt Count MPV Sodium Potassium Chloride Carbon Dioxide Anion Gap BUN Creatinine Creat Clearance w eGFR Random Glucose Calcium Total Bilirubin AST ALT Alkaline Phosphatase Total Protein Albumin Urine Color Urine Appearance Urine pH Ur Specific [place] Urine Protein Urine Glucose (UA) Urine Ketones Urine Blood Urine Nitrite Urine Bilirubin Urine Urobilinogen Ur Leukocyte Esterase RPR Titer Nonreactive Labs reviewed Assessment: 05/05/18 13:54 Withdrawal symptoms Plan: Continue detox Encouraged to follow up with PCP for further workup post discharge regarding nocturia
[2018-05-05] MEDS: chlordiazePOXIDE HCL 10 MG CAPSULE PO SCH ×2 (17:15→22:27)
[2018-05-05] MEDS: THIAMINE HCL 100 MG TABLET (FP) PO SCH (22:27)
[2018-05-06] MEDS: chlordiazePOXIDE HCL 10 MG CAPSULE PO SCH (05:19)
[2018-05-06 06:39] VITALS: BP 149/89; PULSE 69; TEMP 97.1
[2018-05-06] MEDS: LABETALOL HCL 200 MG TABLET (FP) PO SCH (09:13)
[2018-05-06] MEDS: LOSARTAN POTASSIUM 50 MG TABLET (FP) PO SCH (09:13)
[2018-05-06] MEDS: NICOTINE 21 MG/24 HOURS TOPICAL PATCH TD SCH (09:13)
[2018-05-06] MEDS: HYDROCHLOROTHIAZIDE 12.5 MG CAPSULE (FP) PO SCH (09:13)
[2018-05-06] MEDS: PRENATAL VITAMINS W/ FOLIC ACID TABLET (FP) PO SCH (09:13)
--- NOTE | 2018-05-06 13:16 | DS ---
[facility] Detox Discharge Summary Admission Date: 05/02/18 Discharge Date: 05/06/18 - History Present History: Alcohol Dependence - Physical Exam Results Vital Signs: Vital Signs Temperature 97.1 F L 05/06/18 06:38 Pulse Rate 69 05/06/18 06:38 Respiratory Rate 18 05/06/18 06:38 Blood Pressure 149/89 05/06/18 06:38 O2 Sat by Pulse Oximetry (%) Pertinent Admission Physical Exam Findings: PATIENT COMPLETED DETOX REGIMEN WITHOUT ADVERSE EVENT. PATIENT CLINICALLY STABLE. ALERT AND ORIENTED X 3, IN NAD, SKIN WARM AND DRY, AMB AD LESLI. DENIES SI /HI. PATIENT ENCOURAGED TO FOLLOW UP WITH PCP WITHIN ONE WEEK OF D/C AND ATTEND GROUP MEETINGS TO PREVENT RELAPSE. PATIENT EDUCATED TO SEEK MEDICAL ATTENTION IF WITHDRAWAL SYMPTOMS OCCUR. D/C INSTRUCTIONS PROVIDED BY STAFF TO PATIENT. - Treatment Hospital Course: Detox Protocol Followed, Detoxed Safely, Responded well, Discharged Condition Good - Medication Discharge Medications: Ambulatory Orders Nicotine [Nicotine Patch 21 mg/24 hr] 21 mg TD DAILY 12/19/17 Hydrochlorothiazide [Hctz -] 12.5 mg PO DAILY #30 cap 05/06/18 Labetalol HCl [Normodyne -] 200 mg PO BID 30 Days #60 tablet 05/06/18 Losartan/Hydrochlorothiazide [Hyzaar 100-12.5 Tablet] 1 tab PO DAILY 30 Days # 30 tablet 05/06/18 - AMA Did Patient Leave Against Medical Advice: No
== END 2018-05-06 09:11 | disposition home or self-care (01) | DRG 774 ==
LOC: YASAS 09:41 → Y3N 11:53
PROC: HZ2ZZZZ Detoxification Services for Substance Abuse Treatment (ICD-10-PCS; principal; 2018-05-02)
DX: F10.230 Alcohol dependence with withdrawal, uncomplicated (principal); F14.20 Cocaine dependence, uncomplicated; F17.210 Nicotine dependence, cigarettes, uncomplicated; F32.9 Major depressive disorder, single episode, unspecified; G47.00 Insomnia, unspecified; I10 Essential (primary) hypertension; Z91.14 Patient's other noncompliance with medication regimen; Z88.0 Allergy status to penicillin
CPT/HCPCS: 36415; 80053; 81003; 85027; 86593; 90688; 93005; 93010; G0008

== ENCOUNTER 2018-07-03 09:24 | Inpatient (IN) | payer OTHER ==
[2018-07-03 11:22] VITALS: BMI 30.2
--- NOTE | 2018-07-03 11:45 | HP ---
CIWA Score Nausea/Vomitin Muscle Tremors: 2 Anxiety: 2 Agitation: 2 Paroxysmal Sweats: 1-Minimal Palms Moist Orientation: 0-Oriented Tacttile Disturbances: 1-Very Mild Itch/Numbness Auditory Disturbances: 1-Very Mild Visual Disturbances: 0-None Headache: 2-Mild CIWA-Ar Total Score: 13 - Admission Criteria OASAS Guidelines: Admission for Medically Managed Detox: Requires at least one of the followin. CIWA greater than 12 2. Seizures within the past 24 hours 3. Delirium tremens within the past 24 hours 4. Hallucinations within the past 24 hours 5. Acute intervention needed for co occurring medical disorder 6. Acute intervention needed for co occurring psychiatric disorder 7. Severe withdrawal that cannot be handled at a lower level of care (continued vomiting, continued diarrhea, abnormal vital signs) requiring intravenous medication and/or fluids 8. Patient presents the following: CIWA greater than 12 Admission Criteria Met: Admission criteria met Admission ROS BHS - HPI Chief Complaint: i need help to stop drinking alcohol and cocaine Allergies/Adverse Reactions: Allergies Allergy/AdvReac Type Severity Reaction Status Date / Time Penicillins Allergy Severe stomach Verified 07/03/18 11:33 cramps History of Present Illness: this 62 years old male with alcohol and cocaine dependence,seeking detox, withdrawal symptom,last detox 05/02/18 to 05/06/18 history of hypertension on medication nicotine dependence multiple admissions in detox,but keep relapsing longest period of sobriety 10 years plan for going back to work and out patient program,AA meeting - Ebola screening Have you traveled outside of the country in the last 21 days: No Have you had contact with anyone from an Ebola affected area: No Have you been sick,other than usual withdrawal symptoms: No Do you have a fever: No - Review of Systems Constitutional: Loss of Appetite, Malaise, Night Sweats, Changes in sleep, Weakness EENT: reports: Nose Congestion Respiratory: reports: No Symptoms reported Cardiac: reports: No Symptoms Reported GI: reports: Nausea, Poor Appetite, Abdominal cramping Musculoskeletal: reports: Back Pain, Muscle Pain Integumentary: reports: Dryness Neuro: reports: Headache, Tremors Endocrine: reports: No Symptoms Reported Hematology: reports: No Symptoms Reported Psychiatric: reports: No Sypmtoms Reported, Judgement Intact, Mood/Affect Appropiate, Orientated x3 Other Systems: Reviewed and Negative Patient History - Patient Medical History Hx Anemia: No Hx Asthma: No Hx Chronic Obstructive Pulmonary Disease (COPD): No Hx Cancer: No Hx Cardiac Disorders: No Hx Congestive Heart Failure: No Hx Hypertension: Yes (non complaice with medication) Hx Hypercholesterolemia: No Hx Pacemaker: No HX Cerebrovascular Accident: No Hx Seizures: No Hx Dementia: No Hx Diabetes: No Hx Gastrointestinal Disorders: No Hx Liver Disease: No Hx Genitourinary Disorders: No Hx Sexually Transmitted Disorders: No Hx Renal Disease (ESRD): No Hx Thyroid Disease: No Hx Human Immunodeficiency Virus (HIV): No (Negative 2017) Hx Hepatitis C: No Hx Depression: Yes Hx Suicide Attempt: No Hx Bipolar Disorder: No Hx Schizophrenia: No Other Medical History: no sucidal,no homicidal - Patient Surgical History Past Surgical History: No Hx Neurologic Surgery: No Hx Cataract Extraction: No Hx Cardiac Surgery: No Hx Lung Surgery: No Hx Breast Surgery: No Hx Breast Biopsy: No Hx Abdominal Surgery: No Hx Appendectomy: No Hx Cholecystectomy: No Hx Genitourinary Surgery: No Hx Section: No Hx Orthopedic Surgery: No Anesthesia Reaction: No - PPD History Previous Implant?: Yes Documented Results: Negative w/proof Implanted On Prior [facility] Admission?: Yes Date: 09/27/17 Results: 0 mm PPD to be Administered?: No - Smoking Cessation Smoking history: Current every day smoker Have you smoked in the past 12 months: Yes Aproximately how many cigarettes per day: 20 Hx Chewing Tobacco Use: No Initiated information on smoking cessation: Yes 'Breaking Loose' booklet given: 07/03/18 - Substance & Tx. History Hx Alcohol Use: Yes Hx Substance Use: Yes Substance Use Type: Alcohol, Cocaine Hx Substance Use Treatment: Yes ([facility] 05/02/18 to 05/06/18) - Substances Abused Cocaine Route: Inhalation Frequency: 1-3 times last 30 days Amount used: $10 Age of first use: 51 Date of Last Use: 07/02/18 Alcohol-[place] Route: Oral Frequency: Daily Amount used: 1 qt. Age of first use: 28 Date of Last Use: 07/03/18 Family Disease History - Family Disease History Family Disease History: CA: Mother (lymphoma, 04/2016,alcohol), Other: Father (1963,alcohol,) Admission Physical Exam B[facility] - Vital Signs Vital Signs: Vital Signs - 24 hr 07/03/18 11:20 Temperature 98.5 F Pulse Rate 88 Respiratory 18 Rate Blood Pressure 151/86 - Physical General Appearance: Yes: Moderate Distress, Tremorous, Irritable, Sweating, Anxious HEENTM: Yes: Normal ENT Inspection, Normocephalic, Normal Voice, CODI, Pharynx Normal Respiratory: Yes: Lungs Clear, Normal Breath Sounds, No Respiratory Distress Neck: Yes: Within Normal Limits, Supple, Trachea in good position Breast: Yes: Within Normal Limits Cardiology: Yes: Within Normal Limits, Regular Rhythm, Regular Rate, S1, S2 Abdominal: Yes: Within Normal Limits, Normal Bowel Sounds, Non Tender, Soft Genitourinary: Yes: Within Normal Limits Back: Yes: Muscle Spasm Musculoskeletal: Yes: Back pain, Muscle Pain Extremities: Yes: Within Normal Limits, Normal Range of Motion, Tremors 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: Yes: 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-XII NML intact, Fully Oriented, Alert, Motor Strength 5/5 Integumentary: Yes: Dry Lymphatic: Yes: Within Normal Limits - Diagnostic (1) Alcohol dependence with uncomplicated withdrawal Status: Chronic (2) Cocaine dependence Status: Chronic Qualifiers: Substance use status: uncomplicated Qualified Code(s): F14.20 - Cocaine dependence, uncomplicated (3) Hypertension Status: Chronic Qualifiers: Hypertension type: essential hypertension Qualified Code(s): I10 - Essential (primary) hypertension (4) Nicotine dependence Status: Chronic Qualifiers: Nicotine product type: cigarettes Substance use status: uncomplicated Qualified Code(s): F17.210 - Nicotine dependence, cigarettes, uncomplicated Cleared for Admission S - Detox or Rehab [facility] Level of Care: Medically Managed Detox Regimen/Protocol: Librium [facility] Breath Alcohol Content Breath Alcohol Content: 0 Urine Drug Screen - Results Drug Screen Negative: No Urine Drug Screen Results: ABISAI-Cocaine, BAR-Barbiturates
[2018-07-03] MEDS ORDERED: MAGNESIUM HYDROX 2400MG/30ML ORAL SUSPENSION 30 ML CUP PO PRN (11:57)
[2018-07-03] MEDS ORDERED: ACETAMINOPHEN 325 MG TABLET (FP) PO PRN (11:57)
[2018-07-03] MEDS ORDERED: MAG HYDROX/AL HYDROX/SIMETH 30 ML UNIT-DOSE CUP PO PRN (11:57)
[2018-07-03] MEDS ORDERED: hydrOXYzine PAMOATE 50 MG CAPSULE (FP) PO PRN (11:57)
[2018-07-03] MEDS ORDERED: MENTHOL/PHENOL 1 EACH UD MM PRN (11:57)
[2018-07-03] MEDS ORDERED: MAGNESIUM CITRATE 300 ML BOTTLE PO PRN (11:57)
[2018-07-03] MEDS ORDERED: chlordiazePOXIDE HCL 25 MG CAPSULE PO PRN (11:57)
[2018-07-03] MEDS ORDERED: guaiFENesin/D-METHORPHAN HB 10 ML UNIT-DOSE CUPS PO PRN (11:57)
[2018-07-03] MEDS ORDERED: IBUPROFEN 400 MG TABLET (FP) PO PRN (11:57)
[2018-07-03] MEDS ORDERED: LOPERAMIDE HCL 2 MG CAPSULE PO PRN (11:57)
[2018-07-03] MEDS ORDERED: P-EPHED 60MG/TRIPROLIDI 2.5MG TABLET PO PRN (11:57)
[2018-07-03] MEDS ORDERED: NICOTINE 21 MG/24 HOURS TOPICAL PATCH TD SCH (12:35)
[2018-07-03] MEDS: chlordiazePOXIDE HCL 25 MG CAPSULE PO SCH ×2 (17:24→23:08)
[2018-07-03 18:40] LABS: URINE APPEARANCE TURBID; URINE BILIRUBIN NEGATIVE (<2.0 mg/dL); URINE COLOR YELLOW; URINE GLUCOSE (UA) NEGATIVE (NEGATIVE); URINE KETONE NEGATIVE (NEGATIVE); URINE LEUK ESTERASE NEGATIVE (NEGATIVE); URINE NITRITE NEGATIVE (NEGATIVE); URINE PROTEIN 1+ (NEGATIVE); URINE UROBILINOGEN 4.0 E.U/dl mg/dL (0.2-1.0)
[2018-07-03 18:47] LABS: URINE MUCUS FEW
[2018-07-03] MEDS ORDERED: LABETALOL HCL 100 MG TABLET (FP) ONE (21:34)
[2018-07-03] MEDS ORDERED: LABETALOL HCL 200 MG TABLET (FP) PO SCH (22:00)
[2018-07-03] MEDS ORDERED: THIAMINE HCL 100 MG TABLET (FP) PO SCH (22:00)
[2018-07-03] MEDS ORDERED: MELATONIN 5 MG TABLETS PO PRN (22:00)
[2018-07-04] MEDS: chlordiazePOXIDE HCL 25 MG CAPSULE PO SCH (05:45)
[2018-07-04 06:13] VITALS: PULSE 73
[2018-07-04 09:27] VITALS: BP 149/99; TEMP 98.8
[2018-07-04] MEDS ORDERED: LOSARTAN POTASSIUM 50 MG TABLET (FP) PO SCH (10:00)
[2018-07-04] MEDS ORDERED: HYDROCHLOROTHIAZIDE 12.5 MG CAPSULE (FP) PO SCH (10:00)
[2018-07-04] MEDS ORDERED: PATIENT'S OWN MEDICATION (NON-FORMULARY) (Losartan/Hydrochlorothiazide [Hyzaar 100-12.5 Ta PO SCH (10:00)
[2018-07-04] MEDS ORDERED: PRENATAL VITAMINS W/ FOLIC ACID TABLET (FP) PO SCH (10:00)
[2018-07-04 10:27] LABS: HEMATOCRIT 42.6 % (35.4-49); HEMOGLOBIN 13.6 GM/dL (11.7-16.9); MCH 28.6 pg (25.7-33.7); MCHC 32.1 g/dl (32.0-35.9); MEAN CELL VOLUME 89.3 fl (80-96); MEAN PLT VOLUME 9.2 fl (7.5-11.1); PLATELET COUNT 233 K/MM3 (134-434); RBC 4.77 M/mm3 (4.00-5.60); RDW 14.4 % (11.9-15.9); WHITE BLOOD COUNT 6.2 K/mm3 (4.0-10.0)
--- NOTE | 2018-07-04 10:30 | PN ---
S Progress Note Note: pt states he needs to go home because he needs to go to his job and make text phone calls to contact his boss. pt was very anxious to leave and he was escorted off the unit all belonging given to pt. pt signed out AMA.
--- NOTE | 2018-07-04 10:32 | DS ---
[facility] Detox Discharge Summary Admission Date: 07/03/18 - History Present History: Alcohol Dependence, Cocaine Dependence - Physical Exam Results Vital Signs: Vital Signs Temperature 98.8 F 07/04/18 09:26 Pulse Rate 73 07/04/18 09:26 Respiratory Rate 16 07/04/18 09:26 Blood Pressure 149/99 07/04/18 09:26 O2 Sat by Pulse Oximetry (%) - Treatment Hospital Course: Discharged Condition Good - Medication Discharge Medications: Ambulatory Orders Labetalol HCl [Normodyne -] 200 mg PO BID 30 Days #60 tablet 05/06/18 Losartan/Hydrochlorothiazide [Hyzaar 100-12.5 Tablet] 1 tab PO DAILY 30 Days # 30 tablet 05/06/18 - Diagnosis (1) Drug-induced mood disorder Current Visit: No Status: Acute (2) Insomnia Current Visit: No Status: Acute Qualifiers: Insomnia type: unspecified Qualified Code(s): G47.00 - Insomnia, unspecified (3) Cocaine dependence Current Visit: Yes Status: Chronic Qualifiers: Substance use status: uncomplicated Qualified Code(s): F14.20 - Cocaine dependence, uncomplicated (4) Depression Current Visit: No Status: Chronic Qualifiers: Depression Type: unspecified Qualified Code(s): F32.9 - Major depressive disorder, single episode, unspecified (5) Hypertension Current Visit: Yes Status: Chronic Qualifiers: Hypertension type: essential hypertension Qualified Code(s): I10 - Essential (primary) hypertension (6) Nicotine dependence Current Visit: Yes Status: Chronic Qualifiers: Nicotine product type: cigarettes Substance use status: uncomplicated Qualified Code(s): F17.210 - Nicotine dependence, cigarettes, uncomplicated (7) Alcohol dependence with uncomplicated withdrawal Current Visit: Yes Status: Chronic - AMA Did Patient Leave Against Medical Advice: Yes (going home)
[2018-07-04 11:05] LABS: ALBUMIN 3.9 g/dl (3.4-5.0); ALK PHOS 67 U/L (45-117); ANION GAP 4 MMOL/L (8-16); BILIRUBIN,TOTAL 0.3 mg/dL (0.2-1); BLOOD UREA NITROGEN 13 mg/dL (7-18); CALCIUM 8.5 mg/dL (8.5-10.1); CHLORIDE 109 mmol/L (98-107); CO2 29 mmol/L (21-32); CREATININE 1.1 mg/dL (0.55-1.3); GLUCOSE,RANDOM 89 mg/dL (74-106); POTASSIUM 3.7 mmol/L (3.5-5.1); SGOT/AST 29 U/L (15-37); SGPT/ALT 31 U/L (13-61); SODIUM 142 mmol/L (136-145); TOT PROT 7.3 g/dl (6.4-8.2)
[2018-07-04] MEDS ORDERED: FLU VACCINE QUAD 60 MCG/0.5 ML (MDV 18-19) IM ONE (12:00)
[2018-07-04] MEDS ORDERED: chlordiazePOXIDE HCL 25 MG CAPSULE PO SCH (17:00)
[2018-07-05] MEDS ORDERED: chlordiazePOXIDE 5 MG CAPSULE PO SCH (17:00)
[2018-07-06] MEDS ORDERED: chlordiazePOXIDE HCL 10 MG CAPSULE PO SCH (17:00)
== END 2018-07-04 10:15 | disposition left against medical advice (07) | DRG 770 ==
LOC: YASAS 09:24 → Y6N 11:47
PROC: HZ2ZZZZ Detoxification Services for Substance Abuse Treatment (ICD-10-PCS; principal; 2018-07-03)
DX: F10.230 Alcohol dependence with withdrawal, uncomplicated (principal); F14.20 Cocaine dependence, uncomplicated; F17.210 Nicotine dependence, cigarettes, uncomplicated; F19.24 Other psychoactive substance dependence with psychoactive substance-induced mood disorder; F32.9 Major depressive disorder, single episode, unspecified; I10 Essential (primary) hypertension; G47.00 Insomnia, unspecified; Z91.14 Patient's other noncompliance with medication regimen; Z88.0 Allergy status to penicillin
CPT/HCPCS: 36415; 80053; 81003; 81015; 85027; 86593

== ENCOUNTER 2018-09-08 15:49 | Inpatient (IN) | payer OTHER ==
[2018-09-08 16:51] VITALS: BMI 30.3
--- NOTE | 2018-09-08 20:13 | HP ---
CIWA Score Nausea/Vomitin-Mild Nausea/No Vomiting Muscle Tremors: 4-Moderate,w/Arms Extend Anxiety: 3 Agitation: 4-Moderately Restless Paroxysmal Sweats: No Perspiration Orientation: 0-Oriented Tacttile Disturbances: 0-None Auditory Disturbances: 0-None Visual Disturbances: 0-None Headache: 2-Mild CIWA-Ar Total Score: 14 - Admission Criteria OASAS Guidelines: Admission for Medically Managed Detox: Requires at least one of the followin. CIWA greater than 12 2. Seizures within the past 24 hours 3. Delirium tremens within the past 24 hours 4. Hallucinations within the past 24 hours 5. Acute intervention needed for co occurring medical disorder 6. Acute intervention needed for co occurring psychiatric disorder 7. Severe withdrawal that cannot be handled at a lower level of care (continued vomiting, continued diarrhea, abnormal vital signs) requiring intravenous medication and/or fluids 8. Admission ROS [facility] - [facility] Chief Complaint: Alcohol withdrawal symptoms Allergies/Adverse Reactions: Allergies Allergy/AdvReac Type Severity Reaction Status Date / Time Penicillins Allergy Severe stomach Verified 09/08/18 18:43 cramps History of Present Illness: 62 years old with a long history of alcohol dependence is seeking admission to detox. Patient has been to multiple detox facilities and reports 10 years of sobriety. He has medical history of hypertension, depression and denies suicidal attempt and ideation at this time. Exam Limitations: No Limitations - Ebola screening Have you traveled outside of the country in the last 21 days: No Have you had contact with anyone from an Ebola affected area: No Have you been sick,other than usual withdrawal symptoms: No Do you have a fever: No - Review of Systems Constitutional: Chills, Changes in sleep EENT: reports: No Symptoms Reported Respiratory: reports: No Symptoms reported Cardiac: reports: No Symptoms Reported GI: reports: Nausea, Poor Appetite, Poor Fluid Intake, Abdominal cramping : reports: No Symptoms Reported Musculoskeletal: reports: Joint Pain Integumentary: reports: Dryness, Flushing Neuro: reports: Headache, Tremors Endocrine: reports: No Symptoms Reported Hematology: reports: No Symptoms Reported Psychiatric: reports: Mood/Affect Appropiate, Orientated x3 Other Systems: Reviewed and Negative Patient History - Patient Medical History Hx Anemia: No Hx Asthma: No Hx Chronic Obstructive Pulmonary Disease (COPD): No Hx Cancer: No Hx Cardiac Disorders: No Hx Congestive Heart Failure: No Hx Hypertension: Yes (Losartan) Hx Hypercholesterolemia: No Hx Pacemaker: No HX Cerebrovascular Accident: No Hx Seizures: No Hx Dementia: No Hx Diabetes: No Hx Gastrointestinal Disorders: No Hx Liver Disease: No Hx Genitourinary Disorders: No Hx Sexually Transmitted Disorders: No Hx Renal Disease (ESRD): No Hx Thyroid Disease: No Hx Human Immunodeficiency Virus (HIV): No (Negative 2017) Hx Hepatitis C: No Hx Depression: Yes (Not on medication) Hx Suicide Attempt: No (Denies suicidal ideaion at this time) Hx Bipolar Disorder: No Hx Schizophrenia: No - Patient Surgical History Past Surgical History: No Hx Neurologic Surgery: No Hx Cataract Extraction: No Hx Cardiac Surgery: No Hx Lung Surgery: No Hx Abdominal Surgery: No Hx Appendectomy: No Hx Cholecystectomy: No Hx Genitourinary Surgery: No Hx Orthopedic Surgery: No Anesthesia Reaction: No - PPD History Previous Implant?: Yes Documented Results: Negative w/proof Date: 09/27/17 Results: 3 mm PPD to be Administered?: No - Reproductive History Patient is a Female of Child Bearing Age (11 -55 yrs old): No (Male) - Smoking Cessation Smoking history: Current every day smoker Have you smoked in the past 12 months: Yes Aproximately how many cigarettes per day: 20 Cigars Per Day: 4 Hx Chewing Tobacco Use: No Initiated information on smoking cessation: Yes 'Breaking Loose' booklet given: 09/08/18 - Substance & Tx. History Hx Alcohol Use: Yes Hx Substance Use: Yes Substance Use Type: Alcohol, Cocaine Hx Substance Use Treatment: Yes ([facility]) - Substances Abused Alcohol Route: Oral Frequency: Daily Amount used: 5TH SUNITHA LONDONO Age of first use: 31 Date of Last Use: 09/07/18 Cocaine Route: Smoking Frequency: Daily Amount used: 1 BAG Age of first use: 41 Date of Last Use: 09/07/18 Family Disease History - Family Disease History Family Disease History: Diabetes: Grandparent (), CA: Mother (lymphoma, 04/2016,alcohol), Other: Father (1963,alcohol,) Admission Physical Exam [facility] - Vital Signs Vital Signs: Vital Signs - 24 hr 09/08/18 16:48 Temperature 96.8 F L Pulse Rate 85 Respiratory 18 Rate Blood Pressure 139/95 - Physical General Appearance: Yes: Moderate Distress, Tremorous HEENTM: Yes: EOMI, Normal ENT Inspection, Normocephalic, Normal Voice, CODI Respiratory: Yes: Lungs Clear, Normal Breath Sounds, No Respiratory Distress Neck: Yes: Supple Breast: Yes: Breast Exam Deferred Abdominal: Yes: Normal Bowel Sounds Genitourinary: Yes: Within Normal Limits Back: Yes: Normal Inspection Musculoskeletal: Yes: Joint Stiffness Extremities: Yes: Tremors 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: Yes: high worker II-XII NML intact, Normal Mood/Affect Integumentary: Yes: Warm Lymphatic: Yes: Within Normal Limits - Diagnostic (1) Alcohol dependence with uncomplicated withdrawal Current Visit: Yes Status: Chronic (2) Cocaine dependence Current Visit: Yes Status: Chronic Qualifiers: Substance use status: uncomplicated Qualified Code(s): F14.20 - Cocaine dependence, uncomplicated (3) Depression Current Visit: Yes Status: Chronic Qualifiers: Depression Type: unspecified Qualified Code(s): F32.9 - Major depressive disorder, single episode, unspecified (4) Hypertension Current Visit: Yes Status: Chronic Qualifiers: Hypertension type: essential hypertension Qualified Code(s): I10 - Essential (primary) hypertension (5) Nicotine dependence Current Visit: Yes Status: Chronic Qualifiers: Nicotine product type: cigarettes Substance use status: uncomplicated Qualified Code(s): F17.210 - Nicotine dependence, cigarettes, uncomplicated Cleared for Admission [facility] - Detox or Rehab [facility] Level of Care: Medically Managed Detox Regimen/Protocol: Librium [facility] Breath Alcohol Content Breath Alcohol Content: 0 Urine Drug Screen - Results Drug Screen Negative: No Urine Drug Screen Results: ABISAI-Cocaine Inpatient Rehab Admission - Rehab Decision to Admit Inpatient rehab admission?: No
[2018-09-08] MEDS ORDERED: ACETAMINOPHEN 325 MG TABLET (FP) PO PRN (20:21)
[2018-09-08] MEDS ORDERED: guaiFENesin/D-METHORPHAN HB 10 ML UNIT-DOSE CUPS PO PRN (20:21)
[2018-09-08] MEDS ORDERED: P-EPHED 60MG/TRIPROLIDI 2.5MG TABLET PO PRN (20:21)
[2018-09-08] MEDS ORDERED: MENTHOL/PHENOL 1 EACH UD MM PRN (20:21)
[2018-09-08] MEDS ORDERED: hydrOXYzine PAMOATE 25 MG CAPSULE (FP) PO PRN (20:21)
[2018-09-08] MEDS ORDERED: IBUPROFEN 400 MG TABLET (FP) PO PRN (20:21)
[2018-09-08] MEDS ORDERED: MAGNESIUM CITRATE 300 ML BOTTLE PO PRN (20:21)
[2018-09-08] MEDS ORDERED: chlordiazePOXIDE HCL 25 MG CAPSULE PO PRN (20:21)
[2018-09-08] MEDS ORDERED: MAGNESIUM HYDROX 2400MG/30ML ORAL SUSPENSION 30 ML CUP PO PRN (20:21)
[2018-09-08] MEDS ORDERED: LOPERAMIDE HCL 2 MG CAPSULE PO PRN (20:21)
[2018-09-08] MEDS ORDERED: MAG HYDROX/AL HYDROX/SIMETH 30 ML UNIT-DOSE CUP PO PRN (20:21)
[2018-09-08] MEDS ORDERED: NICOTINE POLACRILEX 2 MG GUM BC PRN (20:21)
[2018-09-08] MEDS ORDERED: PATIENT'S OWN MEDICATION (NON-FORMULARY) (Losartan/Hydrochlorothiazide [Hyzaar 100-12.5 Ta PO SCH (20:30)
[2018-09-08] MEDS: chlordiazePOXIDE HCL 25 MG CAPSULE PO SCH (22:11)
[2018-09-08] MEDS: NICOTINE 21 MG/24 HOURS TOPICAL PATCH TD SCH (22:11)
[2018-09-08] MEDS: LOSARTAN POTASSIUM 50 MG TABLET (FP) PO SCH (22:11)
[2018-09-08] MEDS: HYDROCHLOROTHIAZIDE 12.5 MG CAPSULE (FP) PO SCH (22:11)
[2018-09-08] MEDS: THIAMINE HCL 100 MG TABLET (FP) PO SCH (22:12)
[2018-09-08] MEDS: LABETALOL HCL 200 MG TABLET (FP) PO SCH (22:59)
[2018-09-09] MEDS: chlordiazePOXIDE HCL 25 MG CAPSULE PO SCH ×4 (05:41→22:28)
[2018-09-09 10:32] LABS: HEMATOCRIT 39.3 % (35.4-49); HEMOGLOBIN 13.2 GM/dL (11.7-16.9); MCH 30.1 pg (25.7-33.7); MCHC 33.7 g/dl (32.0-35.9); MEAN CELL VOLUME 89.4 fl (80-96); MEAN PLT VOLUME 7.8 fl (7.5-11.1); PLATELET COUNT 225 K/MM3 (134-434); RDW 14.4 % (11.9-15.9); WHITE BLOOD COUNT 4.8 K/mm3 (4.0-10.0)
[2018-09-09] MEDS: LABETALOL HCL 200 MG TABLET (FP) PO SCH ×2 (10:43→22:28)
[2018-09-09] MEDS: LOSARTAN POTASSIUM 50 MG TABLET (FP) PO SCH (10:43)
[2018-09-09] MEDS: HYDROCHLOROTHIAZIDE 12.5 MG CAPSULE (FP) PO SCH (10:43)
[2018-09-09] MEDS: PRENATAL VITAMINS W/ FOLIC ACID TABLET (FP) PO SCH (10:43)
[2018-09-09] MEDS: NICOTINE 21 MG/24 HOURS TOPICAL PATCH TD SCH (10:44)
[2018-09-09 11:06] LABS: ALBUMIN 3.3 g/dl (3.4-5.0); ALK PHOS 54 U/L (45-117); ANION GAP 6 MMOL/L (8-16); BILIRUBIN,TOTAL 0.4 mg/dL (0.2-1); BLOOD UREA NITROGEN 21 mg/dL (7-18); CALCIUM 8.5 mg/dL (8.5-10.1); CHLORIDE 106 mmol/L (98-107); CO2 27 mmol/L (21-32); CREATININE 1.2 mg/dL (0.55-1.3); GLUCOSE,RANDOM 91 mg/dL (74-106); POTASSIUM 3.9 mmol/L (3.5-5.1); SGOT/AST 17 U/L (15-37); SGPT/ALT 23 U/L (13-61); SODIUM 140 mmol/L (136-145); TOT PROT 6.3 g/dl (6.4-8.2)
--- NOTE | 2018-09-09 11:47 | CONSULT ---
[facility] Psychiatric Consult - Data Date of interview: 09/09/18 Admission source: [facility] Identifying data: Readmission to [facility] for this 62 y/o AA male self- referred for detoxification treatment (alcohol, cocaine). Examined at [address] [place] [address]. 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 Substance Abuse History: Confirmed by the patient in this interview. Details in current [facility] report as follows : Smoking history: Current every day smoker. Have you smoked in the past 12 months: Yes. Aproximately how many cigarettes per day: 20. Cigars Per Day: 4. Hx Chewing Tobacco Use: No. Initiated information on smoking cessation: Yes. 'Breaking Loose' booklet given: . - Substance & Tx. History. Hx Alcohol Use: Yes. Hx Substance Use: Yes. Substance Use Type: Alcohol, Cocaine. Hx Substance Use Treatment: Yes ([facility]). - Substances Abused. Alcohol. Route: Oral. Frequency: Daily. Amount used : 5TH SUNITHA DANIELDS. Age of first use: 31. Date of Last Use: 09/07/18. Cocaine. Route: Smoking. Frequency: Daily. Amount used: 1 BAG. Age of first use: 41. Date of Last Use: 09/07/18 Medical History: Hypertension. Psychiatric History: No reported history of psychiatric hospitalizations. Patient was kept once at [facility] for extended observation (CPEP) and discharged after 72 hours. Mr Coreas denies history of suicide attempts. Physical/Sexual Abuse/Trauma History: Patient denies. Additional Comment: Urine Drug Screen Results: ABISAI-Cocaine. Noted. Mental Status Exam - Mental Status Exam Alert and Oriented to: Time, Place, Person Cognitive Function: Good Patient Appearance: Unkempt, Disheveled (imposing frame, muscular built) Mood: Nervous Affect: Appropriate, Normal Range Patient Behavior: Fatigued, Appropriate, Cooperative Speech Pattern: Clear, Appropriate Voice Loudness: Normal Thought Process: Intact, Goal Oriented Thought Disorder: Not Present Hallucinations: Denies Suicidal Ideation: Denies Homicidal Ideation: Denies Insight/Judgement: Poor Sleep: Fair Appetite: Good Muscle strength/Tone: Normal Gait/Station: Normal Psychiatric Findings - Problem List ([place] 1, 2,3) (1) Alcohol dependence with uncomplicated withdrawal Current Visit: Yes Status: Acute (2) Cocaine dependence Current Visit: Yes Status: Chronic Qualifiers: Substance use status: uncomplicated Qualified Code(s): F14.20 - Cocaine dependence, uncomplicated (3) Nicotine dependence Current Visit: Yes Status: Chronic Qualifiers: Nicotine product type: cigarettes Substance use status: uncomplicated Qualified Code(s): F17.210 - Nicotine dependence, cigarettes, uncomplicated (4) Drug-induced mood disorder Current Visit: Yes Status: Chronic (5) Insomnia Current Visit: Yes Status: Chronic Qualifiers: Insomnia type: unspecified Qualified Code(s): G47.00 - Insomnia, unspecified - Initial Treatment Plan Initial Treatment Plan: Psychoeducation. Sleep hygiene. Detoxification in progress. Support. Groups. AA meetings. Relapse prevention is discussed with the patient (benefits of MAT agents : naltrexone, acamprosate). Insomnia is addressed with melatonin at bedtime. Patient is in agreement with this careplan. Observation.
--- NOTE | 2018-09-09 18:07 | PN ---
S CIWA - CIWA Score Nausea/Vomitin-Mild Nausea/No Vomiting Muscle Tremors: 3 Anxiety: 3 Agitation: 2 Paroxysmal Sweats: 3 Orientation: 0-Oriented Tacttile Disturbances: 0-None Auditory Disturbances: 0-None Visual Disturbances: 0-None Headache: 0-None Present CIWA-Ar Total Score: 12 S Progress Note (SOAP) Subjective: sweats shakes A & ox 3 in no distress Vital Signs Temperature 98.9 F 09/09/18 17:22 Pulse Rate 72 09/09/18 17:22 Respiratory Rate 18 09/09/18 17:22 Blood Pressure 113/61 09/09/18 17:22 O2 Sat by Pulse Oximetry (%) Laboratory Last Values WBC 4.8 K/mm3 (4.0-10.0) 09/09/18 07:40 RBC 4.40 M/mm3 (4.00-5.60) 09/09/18 07:40 Hgb 13.2 GM/dL (11.7-16.9) 09/09/18 07:40 Hct 39.3 % (35.4-49) 09/09/18 07:40 MCV 89.4 fl (80-96) 09/09/18 07:40 MCH 30.1 pg (25.7-33.7) 09/09/18 07:40 MCHC 33.7 g/dl (32.0-35.9) 09/09/18 07:40 RDW 14.4 % (11.9-15.9) 09/09/18 07:40 Plt Count 225 K/MM3 (134-434) 09/09/18 07:40 MPV 7.8 fl (7.5-11.1) D 09/09/18 07:40 Sodium 140 mmol/L (136-145) 09/09/18 07:40 Potassium 3.9 mmol/L (3.5-5.1) 09/09/18 07:40 Chloride 106 mmol/L (98-107) 09/09/18 07:40 Carbon Dioxide 27 mmol/L (21-32) 09/09/18 07:40 Anion Gap 6 MMOL/L (8-16) L 09/09/18 07:40 BUN 21 mg/dL (7-18) H 09/09/18 07:40 Creatinine 1.2 mg/dL (0.55-1.3) 09/09/18 07:40 Creat Clearance w eGFR > 60 (>60) 09/09/18 07:40 Random Glucose 91 mg/dL (74-106) 09/09/18 07:40 Calcium 8.5 mg/dL (8.5-10.1) 09/09/18 07:40 Total Bilirubin 0.4 mg/dL (0.2-1) 09/09/18 07:40 AST 17 U/L (15-37) 09/09/18 07:40 ALT 23 U/L (13-61) 09/09/18 07:40 Alkaline Phosphatase 54 U/L (45-117) 09/09/18 07:40 Total Protein 6.3 g/dl (6.4-8.2) L 09/09/18 07:40 Albumin 3.3 g/dl (3.4-5.0) L 09/09/18 07:40 RPR Titer Nonreactive (NONREACTIVE) 09/09/18 07:40 noted withdrawal sx Continue detox
[2018-09-09] MEDS: THIAMINE HCL 100 MG TABLET (FP) PO SCH (22:28)
[2018-09-10] MEDS: chlordiazePOXIDE HCL 25 MG CAPSULE PO SCH ×3 (05:16→17:50)
[2018-09-10] MEDS: PRENATAL VITAMINS W/ FOLIC ACID TABLET (FP) PO SCH (10:37)
[2018-09-10] MEDS: NICOTINE 21 MG/24 HOURS TOPICAL PATCH TD SCH (10:39)
[2018-09-10] MEDS: LOSARTAN POTASSIUM 50 MG TABLET (FP) PO SCH (10:40)
[2018-09-10] MEDS: HYDROCHLOROTHIAZIDE 12.5 MG CAPSULE (FP) PO SCH (10:40)
[2018-09-10] MEDS: LABETALOL HCL 200 MG TABLET (FP) PO SCH ×2 (10:40→22:46)
--- NOTE | 2018-09-10 11:25 | PN ---
S CIWA - CIWA Score Nausea/Vomitin-No Nausea/No Vomiting Muscle Tremors: 2 Anxiety: 1-Mildly Anxious Agitation: 2 Paroxysmal Sweats: 1-Minimal Palms Moist Orientation: 0-Oriented Tacttile Disturbances: 0-None Auditory Disturbances: 0-None Visual Disturbances: 0-None Headache: 1-Very Mild CIWA-Ar Total Score: 7 S Progress Note (SOAP) Subjective: tremor sweating otherwise feeling ok social with peers in day room Objective: 09/10/18 11:24 Vital Signs Temperature 97.8 F 09/10/18 09:23 Pulse Rate 58 L 09/10/18 09:23 Respiratory Rate 18 09/10/18 09:23 Blood Pressure 104/67 09/10/18 09:23 O2 Sat by Pulse Oximetry (%) Laboratory Last Values WBC 4.8 K/mm3 (4.0-10.0) 09/09/18 07:40 RBC 4.40 M/mm3 (4.00-5.60) 09/09/18 07:40 Hgb 13.2 GM/dL (11.7-16.9) 09/09/18 07:40 Hct 39.3 % (35.4-49) 09/09/18 07:40 MCV 89.4 fl (80-96) 09/09/18 07:40 MCH 30.1 pg (25.7-33.7) 09/09/18 07:40 MCHC 33.7 g/dl (32.0-35.9) 09/09/18 07:40 RDW 14.4 % (11.9-15.9) 09/09/18 07:40 Plt Count 225 K/MM3 (134-434) 09/09/18 07:40 MPV 7.8 fl (7.5-11.1) D 09/09/18 07:40 Sodium 140 mmol/L (136-145) 09/09/18 07:40 Potassium 3.9 mmol/L (3.5-5.1) 09/09/18 07:40 Chloride 106 mmol/L (98-107) 09/09/18 07:40 Carbon Dioxide 27 mmol/L (21-32) 09/09/18 07:40 Anion Gap 6 MMOL/L (8-16) L 09/09/18 07:40 BUN 21 mg/dL (7-18) H 09/09/18 07:40 Creatinine 1.2 mg/dL (0.55-1.3) 09/09/18 07:40 Creat Clearance w eGFR > 60 (>60) 09/09/18 07:40 Random Glucose 91 mg/dL (74-106) 09/09/18 07:40 Calcium 8.5 mg/dL (8.5-10.1) 09/09/18 07:40 Total Bilirubin 0.4 mg/dL (0.2-1) 09/09/18 07:40 AST 17 U/L (15-37) 09/09/18 07:40 ALT 23 U/L (13-61) 09/09/18 07:40 Alkaline Phosphatase 54 U/L (45-117) 09/09/18 07:40 Total Protein 6.3 g/dl (6.4-8.2) L 09/09/18 07:40 Albumin 3.3 g/dl (3.4-5.0) L 09/09/18 07:40 RPR Titer Nonreactive (NONREACTIVE) 09/09/18 07:40 lab noted Assessment: 09/10/18 11:25 withdrawal sx Plan: continue detox
[2018-09-10] MEDS ORDERED: LABETALOL HCL 100 MG TABLET (FP) ONE (22:33)
[2018-09-10] MEDS: THIAMINE HCL 100 MG TABLET (FP) PO SCH (22:46)
[2018-09-10] MEDS: MELATONIN 5 MG TABLETS PO PRN (22:46)
[2018-09-10] MEDS: chlordiazePOXIDE 5 MG CAPSULE PO SCH (22:46)
[2018-09-11] MEDS: chlordiazePOXIDE 5 MG CAPSULE PO SCH ×3 (05:15→18:24)
--- NOTE | 2018-09-11 09:14 | PN ---
S CIWA - CIWA Score Nausea/Vomitin-No Nausea/No Vomiting Muscle Tremors: 1-None Visible, but [place] Anxiety: 1-Mildly Anxious Agitation: 1-Slight > Activity Paroxysmal Sweats: 1-Minimal Palms Moist Orientation: 0-Oriented Tacttile Disturbances: 0-None Auditory Disturbances: 0-None Visual Disturbances: 0-None Headache: 1-Very Mild CIWA-Ar Total Score: 5 BHS Progress Note (SOAP) Subjective: feeling better today less tremor mild sweating sleep better at night Objective: 09/11/18 09:15 Vital Signs Temperature 96.5 F L 09/11/18 06:32 Pulse Rate 80 09/11/18 06:32 Respiratory Rate 18 09/11/18 06:32 Blood Pressure 142/85 09/11/18 06:32 O2 Sat by Pulse Oximetry (%) Laboratory Last Values WBC 4.8 K/mm3 (4.0-10.0) 09/09/18 07:40 RBC 4.40 M/mm3 (4.00-5.60) 09/09/18 07:40 Hgb 13.2 GM/dL (11.7-16.9) 09/09/18 07:40 Hct 39.3 % (35.4-49) 09/09/18 07:40 MCV 89.4 fl (80-96) 09/09/18 07:40 MCH 30.1 pg (25.7-33.7) 09/09/18 07:40 MCHC 33.7 g/dl (32.0-35.9) 09/09/18 07:40 RDW 14.4 % (11.9-15.9) 09/09/18 07:40 Plt Count 225 K/MM3 (134-434) 09/09/18 07:40 MPV 7.8 fl (7.5-11.1) D 09/09/18 07:40 Sodium 140 mmol/L (136-145) 09/09/18 07:40 Potassium 3.9 mmol/L (3.5-5.1) 09/09/18 07:40 Chloride 106 mmol/L (98-107) 09/09/18 07:40 Carbon Dioxide 27 mmol/L (21-32) 09/09/18 07:40 Anion Gap 6 MMOL/L (8-16) L 09/09/18 07:40 BUN 21 mg/dL (7-18) H 09/09/18 07:40 Creatinine 1.2 mg/dL (0.55-1.3) 09/09/18 07:40 Creat Clearance w eGFR > 60 (>60) 09/09/18 07:40 Random Glucose 91 mg/dL (74-106) 09/09/18 07:40 Calcium 8.5 mg/dL (8.5-10.1) 09/09/18 07:40 Total Bilirubin 0.4 mg/dL (0.2-1) 09/09/18 07:40 AST 17 U/L (15-37) 09/09/18 07:40 ALT 23 U/L (13-61) 09/09/18 07:40 Alkaline Phosphatase 54 U/L (45-117) 09/09/18 07:40 Total Protein 6.3 g/dl (6.4-8.2) L 09/09/18 07:40 Albumin 3.3 g/dl (3.4-5.0) L 09/09/18 07:40 RPR Titer Nonreactive (NONREACTIVE) 09/09/18 07:40 lab noted Assessment: 09/11/18 09:16 mild withdrawal sx Plan: continue detox
[2018-09-11] MEDS: LOSARTAN POTASSIUM 50 MG TABLET (FP) PO SCH (10:38)
[2018-09-11] MEDS: PRENATAL VITAMINS W/ FOLIC ACID TABLET (FP) PO SCH (10:38)
[2018-09-11] MEDS: LABETALOL HCL 200 MG TABLET (FP) PO SCH ×2 (10:39→22:11)
[2018-09-11] MEDS: NICOTINE 21 MG/24 HOURS TOPICAL PATCH TD SCH (10:41)
[2018-09-11] MEDS: HYDROCHLOROTHIAZIDE 12.5 MG CAPSULE (FP) PO SCH (13:25)
--- NOTE | 2018-09-11 13:37 | DS ---
[facility] Detox Discharge Summary Admission Date: 09/08/18 Discharge Date: 09/11/18 - History Present History: Alcohol Dependence Additional Comments: 62 years old male admitted on 09/08/18 for alcohol withdrawal stabilization feeling better today mild alcohol withdrawal symptoms that can be managed as per patient statement after[facility] Pertinent Past History: patient preferred chemical rehab today that [facility] for him as per counselor arranged patient is alert no acute distress - Physical Exam Results Vital Signs: Vital Signs Temperature 97.4 F L 09/11/18 13:18 Pulse Rate 84 09/11/18 13:18 Respiratory Rate 18 09/11/18 13:18 Blood Pressure 148/77 09/11/18 13:18 O2 Sat by Pulse Oximetry (%) Pertinent Admission Physical Exam Findings: alcohol withdrawal sx Laboratory Last Values WBC 4.8 K/mm3 (4.0-10.0) 09/09/18 07:40 RBC 4.40 M/mm3 (4.00-5.60) 09/09/18 07:40 Hgb 13.2 GM/dL (11.7-16.9) 09/09/18 07:40 Hct 39.3 % (35.4-49) 09/09/18 07:40 MCV 89.4 fl (80-96) 09/09/18 07:40 MCH 30.1 pg (25.7-33.7) 09/09/18 07:40 MCHC 33.7 g/dl (32.0-35.9) 09/09/18 07:40 RDW 14.4 % (11.9-15.9) 09/09/18 07:40 Plt Count 225 K/MM3 (134-434) 09/09/18 07:40 MPV 7.8 fl (7.5-11.1) D 09/09/18 07:40 Sodium 140 mmol/L (136-145) 09/09/18 07:40 Potassium 3.9 mmol/L (3.5-5.1) 09/09/18 07:40 Chloride 106 mmol/L (98-107) 09/09/18 07:40 Carbon Dioxide 27 mmol/L (21-32) 09/09/18 07:40 Anion Gap 6 MMOL/L (8-16) L 09/09/18 07:40 BUN 21 mg/dL (7-18) H 09/09/18 07:40 Creatinine 1.2 mg/dL (0.55-1.3) 09/09/18 07:40 Creat Clearance w eGFR > 60 (>60) 09/09/18 07:40 Random Glucose 91 mg/dL (74-106) 09/09/18 07:40 Calcium 8.5 mg/dL (8.5-10.1) 09/09/18 07:40 Total Bilirubin 0.4 mg/dL (0.2-1) 09/09/18 07:40 AST 17 U/L (15-37) 09/09/18 07:40 ALT 23 U/L (13-61) 09/09/18 07:40 Alkaline Phosphatase 54 U/L (45-117) 09/09/18 07:40 Total Protein 6.3 g/dl (6.4-8.2) L 09/09/18 07:40 Albumin 3.3 g/dl (3.4-5.0) L 09/09/18 07:40 RPR Titer Nonreactive (NONREACTIVE) 09/09/18 07:40 lab noted - Treatment Hospital Course: Detox Protocol Followed, Detoxed Safely, Responded well, Discharged Condition Good, Rehab Referral Accepted Patient has Accepted a Rehab Referral to: [facility] - Medication Discharge Medications: Ambulatory Orders Losartan/Hydrochlorothiazide [Hyzaar 100-12.5 Tablet] 1 tab PO DAILY 30 Days # 30 tablet 05/06/18 Labetalol HCl [Normodyne -] 200 mg PO BID #30 tablet 09/11/18 Losartan Potassium [Cozaar -] 100 mg PO DAILY #14 tablet 09/11/18 - Diagnosis (1) Alcohol dependence with uncomplicated withdrawal Current Visit: Yes Status: Acute (2) Drug-induced mood disorder Current Visit: Yes Status: Suspected (3) Hypertension Current Visit: Yes Status: Chronic Qualifiers: Hypertension type: essential hypertension Qualified Code(s): I10 - Essential (primary) hypertension (4) Nicotine dependence Current Visit: Yes Status: Acute Qualifiers: Nicotine product type: cigarettes Substance use status: in withdrawal Qualified Code(s): F17.213 - Nicotine dependence, cigarettes, with withdrawal - AMA Did Patient Leave Against Medical Advice: No
[2018-09-11 21:26] VITALS: BP 163/90; PULSE 76; TEMP 97.9
[2018-09-11] MEDS: MELATONIN 5 MG TABLETS PO PRN (22:11)
[2018-09-11] MEDS: THIAMINE HCL 100 MG TABLET (FP) PO SCH (22:11)
[2018-09-11] MEDS ORDERED: chlordiazePOXIDE HCL 10 MG CAPSULE PO SCH (23:00)
== END 2018-09-11 10:00 | disposition other institution (70) | DRG 774 ==
LOC: YASAS 15:49 → Y3N 20:49
PROVIDERS: ADMIT Surgery; ATTEND Surgery
PROC: HZ2ZZZZ Detoxification Services for Substance Abuse Treatment (ICD-10-PCS; principal; 2018-09-08)
DX: F10.230 Alcohol dependence with withdrawal, uncomplicated (principal); F14.20 Cocaine dependence, uncomplicated; F17.213 Nicotine dependence, cigarettes, with withdrawal; F19.24 Other psychoactive substance dependence with psychoactive substance-induced mood disorder; F32.9 Major depressive disorder, single episode, unspecified; I10 Essential (primary) hypertension; G47.00 Insomnia, unspecified
CPT/HCPCS: 36415; 80053; 85027; 86593

== ENCOUNTER 2018-09-11 22:28 | Inpatient (IN) | payer OTHER ==
--- NOTE | 2018-09-11 13:54 | HP ---
[facility] Rehab Assess/Revision - Admission History Admitted to Rehab from: [facility] Date of Admission to Rehab: 09/11/18 - Findings Detox History & Physical reviewed: Yes Concur with findings: Yes Comments/Additional Findings: transferred from detox to rehab admission as per protocol Inpatient Rehab Admission - Rehab Decision to Admit Inpatient rehab admission?: Yes - Initial Determination Are CD services needed?: Yes Free of communicable disease: Yes Not in need of hospitalization: Yes - Rehab Admission Criteria Previous failed treatment: Yes Poor recovery environment: Yes Comorbidities: Yes Lacks judgement: No Patient is meeting Inpatient Rehab admission criteria:: Yes
[~2018-09-11 22:28] MED LIST: ACETAMINOPHEN 325 MG TABLET (FP) PO PRN; IBUPROFEN 400 MG TABLET (FP) PO PRN; LOPERAMIDE HCL 2 MG CAPSULE PO PRN; MAG HYDROX/AL HYDROX/SIMETH 30 ML UNIT-DOSE CUP PO PRN; MAGNESIUM CITRATE 300 ML BOTTLE PO PRN; MAGNESIUM HYDROX 2400MG/30ML ORAL SUSPENSION 30 ML CUP PO PRN; MENTHOL/PHENOL 1 EACH UD MM PRN; NICOTINE POLACRILEX 2 MG GUM BUC PRN; P-EPHED 60MG/TRIPROLIDI 2.5MG TABLET PO PRN; guaiFENesin/D-METHORPHAN HB 10 ML UNIT-DOSE CUPS PO PRN
[2018-09-11] MEDS: LABETALOL HCL 200 MG TABLET (FP) PO SCH (23:29)
[2018-09-11] MEDS: THIAMINE HCL 100 MG TABLET (FP) PO SCH (23:29)
[2018-09-12] MEDS: HYDROCHLOROTHIAZIDE 12.5 MG CAPSULE (FP) PO SCH (10:28)
[2018-09-12] MEDS: NICOTINE 14 MG/24 HOURS TOPICAL PATCH TD PRN (10:29)
[2018-09-12] MEDS: PRENATAL VITAMINS W/ FOLIC ACID TABLET (FP) PO SCH (10:29)
[2018-09-12] MEDS: LABETALOL HCL 200 MG TABLET (FP) PO SCH ×2 (11:16→21:30)
[2018-09-12] MEDS: MELATONIN 5 MG TABLETS PO PRN (21:30)
[2018-09-12] MEDS: THIAMINE HCL 100 MG TABLET (FP) PO SCH (21:30)
[2018-09-13] MEDS: PRENATAL VITAMINS W/ FOLIC ACID TABLET (FP) PO SCH (10:22)
[2018-09-13] MEDS: LABETALOL HCL 200 MG TABLET (FP) PO SCH ×2 (10:22→21:34)
[2018-09-13] MEDS: HYDROCHLOROTHIAZIDE 12.5 MG CAPSULE (FP) PO SCH (10:22)
[2018-09-13] MEDS: NICOTINE 14 MG/24 HOURS TOPICAL PATCH TD PRN (10:23)
[2018-09-13] MEDS: THIAMINE HCL 100 MG TABLET (FP) PO SCH (21:34)
[2018-09-13] MEDS: MELATONIN 5 MG TABLETS PO PRN (21:34)
[2018-09-14] MEDS: HYDROCHLOROTHIAZIDE 12.5 MG CAPSULE (FP) PO SCH (10:09)
[2018-09-14] MEDS: PRENATAL VITAMINS W/ FOLIC ACID TABLET (FP) PO SCH (10:09)
[2018-09-14] MEDS: LABETALOL HCL 200 MG TABLET (FP) PO SCH ×2 (10:10→21:28)
[2018-09-14] MEDS: NICOTINE 14 MG/24 HOURS TOPICAL PATCH TD PRN (10:10)
[2018-09-14] MEDS: THIAMINE HCL 100 MG TABLET (FP) PO SCH (21:28)
[2018-09-14] MEDS: MELATONIN 5 MG TABLETS PO PRN (21:28)
[2018-09-15 06:54] VITALS: TEMP 97.6
--- NOTE | 2018-09-15 09:28 | PN ---
[facility] Progress Note Note: PER COUNSELOR MS SUZIE WINSTON, PT REQUESTING TO LEAVE TREATMENT TODAY. PT STATES "I GOT TO GET BACK TO WORK. THEY PROBABLY NEED ME THERE". PT MET WITH HIS COUNSELOR AND HAS BEEN REFERRED TO [facility] ON [address], [place] FOR CD AFTERCARE. PT REPORTS HE HAS A PCPDR. HEAVENLY ROSALES AT [place], [place] AND STATES HE HAS APPOINTMENT ON TUESDAY,09/20. 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 ALERT O X 3. DENIES S/H/I. Vital Signs (72 hours) 09/12/18 09/13/18 09/13/18 21:00 00:30 03:30 Temperature Pulse Rate 78 Respiratory 18 18 Rate Blood Pressure 144/80 09/13/18 09/13/18 09/13/18 06:50 10:00 21:00 Temperature 97.8 F Pulse Rate 68 80 80 Respiratory 20 Rate Blood Pressure 148/80 141/75 137/72 09/14/18 09/14/18 09/14/18 00:30 03:30 07:13 Temperature 97.7 F Pulse Rate 71 Respiratory 18 18 18 Rate Blood Pressure 132/88 09/14/18 09/15/18 09/15/18 21:27 00:30 03:30 Temperature 98.2 F Pulse Rate 79 Respiratory 20 20 Rate Blood Pressure 138/87 09/15/18 09/15/18 06:54 09:20 Temperature 97.6 F Pulse Rate 68 87 Respiratory 18 18 Rate Blood Pressure 146/79 134/72 . Home Medications Medication Instructions Recorded Losartan Potassium [Cozaar -] 100 mg PO DAILY #14 tablet 09/11/18 Labetalol HCl [Normodyne -] 200 mg PO BID #30 tablet 09/15/18 Losartan/Hydrochlorothiazide 1 tab PO DAILY 30 Days #15 tablet 09/15/18 [Hyzaar 100-12.5 Tablet] NAD MEDICALLY STABLE. PLAN:FOLLOW UP WITH CD AFTERCARE AT [facility] OUT PATIENT PROGRAM ON 09/18/18 @1: 00 P.M. FOLLOW UP WITH PCP DR. HEAVENLY ROSALES FOR MEDICAL MANAGEMENT ON 09/20/18 YOU SCHEDULED.
[2018-09-15] MEDS: LABETALOL HCL 200 MG TABLET (FP) PO SCH (09:40)
[2018-09-15] MEDS: PRENATAL VITAMINS W/ FOLIC ACID TABLET (FP) PO SCH (09:40)
[2018-09-15] MEDS: HYDROCHLOROTHIAZIDE 12.5 MG CAPSULE (FP) PO SCH (09:40)
[2018-09-15 09:50] VITALS: BP 134/72; PULSE 87
== END 2018-09-15 10:00 | disposition left against medical advice (07) | DRG 770 ==
LOC: YASAS 22:28 → Y5N 22:30
PROVIDERS: ADMIT Neuromusculoskeletal Medicine & OMM; ATTEND Neuromusculoskeletal Medicine & OMM
PROC: HZ42ZZZ Group Counseling for Substance Abuse Treatment, Cognitive-Behavioral (ICD-10-PCS; principal; 2018-09-11)
DX: F10.20 Alcohol dependence, uncomplicated (principal); F14.20 Cocaine dependence, uncomplicated; F17.210 Nicotine dependence, cigarettes, uncomplicated; F32.9 Major depressive disorder, single episode, unspecified; I10 Essential (primary) hypertension

== ENCOUNTER 2019-02-02 15:57 | Inpatient (IN) | payer OTHER ==
[2019-02-02 18:24] VITALS: BMI 28.7
--- NOTE | 2019-02-02 21:42 | HP ---
CIWA Score Nausea/Vomitin Muscle Tremors: 3 Anxiety: 4-Mod. Anxious/Guarded Agitation: 3 Paroxysmal Sweats: 2 Orientation: 0-Oriented Tacttile Disturbances: 0-None Auditory Disturbances: 0-None Visual Disturbances: 0-None Headache: 0-None Present CIWA-Ar Total Score: 14 - Admission Criteria OASAS Guidelines: Admission for Medically Managed Detox: Requires at least one of the followin. CIWA greater than 12 2. Seizures within the past 24 hours 3. Delirium tremens within the past 24 hours 4. Hallucinations within the past 24 hours 5. Acute intervention needed for co occurring medical disorder 6. Acute intervention needed for co occurring psychiatric disorder 7. Severe withdrawal that cannot be handled at a lower level of care (continued vomiting, continued diarrhea, abnormal vital signs) requiring intravenous medication and/or fluids 8. Admission ROS [facility] Chief Complaint: Alcohol withdrawal symptoms Allergies/Adverse Reactions: Allergies Allergy/AdvReac Type Severity Reaction Status Date / Time Penicillins Allergy Severe stomach Verified 02/02/19 18:12 cramps History of Present Illness: 63 years old male with a long history of alcohol dependence is seeking admission to detox. Patient has been to multiple detox facilities and reports 10 years of sobriety. He has medical history of hypertension, depression and denies suicidal attempt and ideation at this time. Exam Limitations: No Limitations - Ebola screening Have you traveled outside of the country in the last 21 days: No Have you had contact with anyone from an Ebola affected area: No - Review of Systems Constitutional: Chills EENT: reports: Nose Congestion Respiratory: reports: No Symptoms reported Cardiac: reports: No Symptoms Reported GI: reports: Poor Appetite, Poor Fluid Intake, Abdominal cramping : reports: No Symptoms Reported Musculoskeletal: reports: No Symptoms Reported Integumentary: reports: Dryness, Flushing Neuro: reports: Tremors Endocrine: reports: No Symptoms Reported Hematology: reports: No Symptoms Reported Psychiatric: reports: Anxious Other Systems: Reviewed and Negative Patient History - Patient Medical History Hx Anemia: No Hx Asthma: No Hx Chronic Obstructive Pulmonary Disease (COPD): No Hx Cancer: No Hx Cardiac Disorders: No Hx Congestive Heart Failure: No Hx Hypertension: Yes (Losartan) Hx Hypercholesterolemia: No Hx Pacemaker: No HX Cerebrovascular Accident: No Hx Seizures: No Hx Dementia: No Hx Diabetes: No Hx Gastrointestinal Disorders: No Hx Liver Disease: No Hx Genitourinary Disorders: No Hx Sexually Transmitted Disorders: No Hx Renal Disease (ESRD): No Hx Thyroid Disease: No Hx Human Immunodeficiency Virus (HIV): No (Negative 2017) Hx Hepatitis C: No Hx Depression: No Hx Suicide Attempt: No (Denies suicidal ideation at this time) Hx Bipolar Disorder: No Hx Schizophrenia: No - Patient Surgical History Past Surgical History: No Hx Neurologic Surgery: No Hx Cataract Extraction: No Hx Cardiac Surgery: No Hx Lung Surgery: No Hx Abdominal Surgery: No Hx Appendectomy: No Hx Cholecystectomy: No Hx Genitourinary Surgery: No Hx Orthopedic Surgery: No Anesthesia Reaction: No - PPD History Previous Implant?: Yes Documented Results: Negative w/proof Implanted On Prior [facility] Admission?: Yes Date: 09/27/17 Results: 3 mm. PPD to be Administered?: Yes - Reproductive History Patient is a Female of Child Bearing Age (11 -55 yrs old): No (Male) - Smoking Cessation Smoking history: Current every day smoker Have you smoked in the past 12 months: Yes Aproximately how many cigarettes per day: 30 Cigars Per Day: 1 Hx Chewing Tobacco Use: No Initiated information on smoking cessation: Yes 'Breaking Loose' booklet given: 02/02/19 - Substance & Tx. History Hx Alcohol Use: Yes Hx Substance Use: Yes Substance Use Type: Alcohol, Cocaine Hx Substance Use Treatment: Yes ([facility]) - Substances abused Cocaine Substance route: Smoking Frequency: 1-3 times last 30 days Amount used: half a gram Age of first use: 31 Date of last use: 01/26/19 Alcohol Substance route: Oral Frequency: Daily Amount used: 1 pint of shayla downs Age of first use: 28 Date of last use: 02/02/19 Family Disease History - Family Disease History Family Disease History: Diabetes: Grandparent (), CA: Mother (lymphoma, 04/2016,alcohol), Other: Father (1963,alcohol,) Admission Physical Exam S - Vital Signs Vital Signs: Vital Signs - 24 hr 02/02/19 18:11 Temperature 98.1 F Pulse Rate 89 Respiratory 16 Rate Blood Pressure 130/76 - Physical General Appearance: Yes: Moderate Distress HEENTM: Yes: Within Normal Limits Respiratory: Yes: Lungs Clear, Normal Breath Sounds, No Respiratory Distress Neck: Yes: Supple Breast: Yes: Breast Exam Deferred Cardiology: Yes: Regular Rhythm, Regular Rate Abdominal: Yes: Normal Bowel Sounds Genitourinary: Yes: Within Normal Limits Back: Yes: Normal Inspection Musculoskeletal: Yes: Within Normal Limits Extremities: Yes: Tremors 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: Yes: Within Normal Limits Integumentary: Yes: Warm Lymphatic: Yes: Within Normal Limits - Diagnostic (1) Alcohol dependence with uncomplicated withdrawal Current Visit: Yes Status: Acute (2) Nicotine dependence Current Visit: Yes Status: Chronic Qualifiers: Nicotine product type: cigarettes Substance use status: uncomplicated Qualified Code(s): F17.210 - Nicotine dependence, cigarettes, uncomplicated (3) Cocaine dependence Current Visit: Yes Status: Chronic Qualifiers: Substance use status: uncomplicated Qualified Code(s): F14.20 - Cocaine dependence, uncomplicated (4) Depression Current Visit: Yes Status: Chronic Qualifiers: Depression Type: unspecified Qualified Code(s): F32.9 - Major depressive disorder, single episode, unspecified (5) Hypertension Current Visit: Yes Status: Chronic Qualifiers: Hypertension type: essential hypertension Qualified Code(s): I10 - Essential (primary) hypertension Cleared for Admission S - Detox or Rehab [facility] Level of Care: Medically Managed Detox Regimen/Protocol: Librium Breathalyzer - Breathalyzer Breathalyzer: 0.005 Urine Drug Screen - Test Device Lot number: [id number] Expiration date: 11/14/20 - Control Is test valid?: Yes - Results Drug screen NEGATIVE: No Urine drug screen results: ABISAI-Cocaine Inpatient Rehab Admission - Rehab Decision to Admit Inpatient rehab admission?: No
[2019-02-02] MEDS ORDERED: MAG HYDROX/AL HYDROX/SIMETH 30 ML UNIT-DOSE CUP PO PRN (21:50)
[2019-02-02] MEDS ORDERED: MAGNESIUM HYDROX 2400MG/30ML ORAL SUSPENSION 30 ML CUP PO PRN (21:50)
[2019-02-02] MEDS ORDERED: METHOCARBAMOL 500 MG TABLET PO PRN (21:50)
[2019-02-02] MEDS ORDERED: BISMUTH SUBSALICYLATE 524 MG/30 ML UD PO PRN (21:50)
[2019-02-02] MEDS ORDERED: MELATONIN 5 MG TABLETS PO PRN (21:50)
[2019-02-02] MEDS ORDERED: MAGNESIUM CITRATE 300 ML BOTTLE PO PRN (21:50)
[2019-02-02] MEDS ORDERED: ACETAMINOPHEN 325 MG TABLET (FP) PO PRN ×2 (21:50)
[2019-02-02] MEDS ORDERED: hydrOXYzine HCL 25 MG TABLET (FP) PO PRN (21:50)
[2019-02-02] MEDS ORDERED: IBUPROFEN 400 MG TABLET (FP) PO PRN (21:50)
[2019-02-02] MEDS ORDERED: MENTHOL/PHENOL 1 EACH UD MM PRN (21:50)
[2019-02-02] MEDS ORDERED: chlordiazePOXIDE HCL 25 MG CAPSULE PO PRN (21:52)
[2019-02-02] MEDS: THIAMINE HCL 100 MG TABLET (FP) PO SCH (23:12)
[2019-02-02] MEDS: chlordiazePOXIDE HCL 25 MG CAPSULE PO SCH (23:12)
[2019-02-03] MEDS: chlordiazePOXIDE HCL 25 MG CAPSULE PO SCH ×4 (05:49→22:34)
[2019-02-03 10:37] LABS: ALBUMIN 3.2 g/dl (3.4-5.0); BILIRUBIN,TOTAL 0.2 mg/dL (0.2-1); BLOOD UREA NITROGEN 21.7 mg/dL (7-18); CALCIUM 8.4 mg/dL (8.5-10.1); POTASSIUM 3.8 mmol/L (3.5-5.1); TOT PROT 5.8 g/dl (6.4-8.2)
[2019-02-03] MEDS: PRENATAL VITAMINS W/ FOLIC ACID TABLET (FP) PO SCH (10:51)
[2019-02-03 11:15] LABS: HEMATOCRIT 39.6 % (35.4-49); HEMOGLOBIN 13.2 GM/dL (11.7-16.9); MCH 30.1 pg (25.7-33.7); MCHC 33.2 g/dl (32.0-35.9); MEAN CELL VOLUME 90.5 fl (80-96); MEAN PLT VOLUME 8.6 fl (7.5-11.1); PLATELET COUNT 198 K/MM3 (134-434); RBC 4.38 M/mm3 (4.00-5.60); RDW 14.4 % (11.9-15.9); WHITE BLOOD COUNT 4.2 K/mm3 (4.0-10.0)
[2019-02-03] MEDS ORDERED: PATIENT'S OWN MEDICATION (NON-FORMULARY) (Losartan/Hydrochlorothiazide [Hyzaar 100-12.5 Ta PO SCH (13:00)
--- NOTE | 2019-02-03 13:01 | PN ---
[facility] CIWA - CIWA Score Nausea/Vomitin-No Nausea/No Vomiting Muscle Tremors: 3 Anxiety: 3 Agitation: 0-Normal Activity Paroxysmal Sweats: 3 Orientation: 0-Oriented Tacttile Disturbances: 2-Mild Itch/Numbness/Burn Auditory Disturbances: 0-None Visual Disturbances: 2-Mild Sensitivity Headache: 0-None Present CIWA-Ar Total Score: 13 S Progress Note (SOAP) Subjective: Tremors, Fatigue, Anxious, Sweating. Objective: PATIENT A & O X 3. IN NO ACUTE DISTRESS. 02/03/19 13:02 Vital Signs Temperature 97.2 F L 02/03/19 09:26 Pulse Rate 70 02/03/19 09:26 Respiratory Rate 18 02/03/19 09:26 Blood Pressure 149/89 02/03/19 09:26 O2 Sat by Pulse Oximetry (%) Laboratory Tests 02/03/19 02/03/19 02/03/19 08:00 08:00 08:00 WBC 4.2 RBC 4.38 Hgb 13.2 Hct 39.6 MCV 90.5 MCH 30.1 MCHC 33.2 RDW 14.4 Plt Count 198 MPV 8.6 D Sodium 143 Potassium 3.8 Chloride 110 H Carbon Dioxide 29 Anion Gap 3 L BUN 21.7 H Creatinine 1.0 Est GFR (CKD-EPI)AfAm 93.08 Est GFR (CKD-EPI)NonAf 80.31 Random Glucose 93 Calcium 8.4 L Total Bilirubin 0.2 AST 20 ALT 24 Alkaline Phosphatase 67 Total Protein 5.8 L Albumin 3.2 L RPR Titer Nonreactive LABS NOTED. RESULTS OF QFT / TB TEST PENDING. 02/03/19 13:02 Assessment: 02/03/19 13:02 WITHDRAWAL SYMPTOMS. HYPERTENSION. Plan: CONTINUE DETOX. INCREASE DAILY PO WATER INTAKE. HOME ANTI-HYPERTENSIVE MEDICATIONS (LOSARTAN, 100 MG PO DAILY, HCTZ, 12.5 MG PO DAILY, LABETOLOL, 200 MG PO BID) RECONCILED. (MEDICATIONS WERE NOT RECONCILED ON DETOX ADMISSION.
[2019-02-03] MEDS: LOSARTAN POTASSIUM 50 MG TABLET (FP) PO SCH (18:40)
[2019-02-03] MEDS: HYDROCHLOROTHIAZIDE 12.5 MG CAPSULE (FP) PO SCH (18:40)
[2019-02-03] MEDS ORDERED: LABETALOL HCL 200 MG TABLET (FP) PO SCH (22:00)
[2019-02-03] MEDS: THIAMINE HCL 100 MG TABLET (FP) PO SCH (22:34)
[2019-02-03] MEDS: LABETALOL HCL 200 MG TABLET (FP) PO SCH (22:34)
[2019-02-04] MEDS: chlordiazePOXIDE HCL 25 MG CAPSULE PO SCH ×4 (06:00→23:40)
[2019-02-04] MEDS: HYDROCHLOROTHIAZIDE 12.5 MG CAPSULE (FP) PO SCH (10:29)
[2019-02-04] MEDS: LOSARTAN POTASSIUM 50 MG TABLET (FP) PO SCH (10:29)
[2019-02-04] MEDS: PRENATAL VITAMINS W/ FOLIC ACID TABLET (FP) PO SCH (10:29)
[2019-02-04] MEDS: LABETALOL HCL 200 MG TABLET (FP) PO SCH ×2 (10:29→22:41)
--- NOTE | 2019-02-04 12:39 | PN ---
[facility] CIWA - CIWA Score Nausea/Vomitin-Mild Nausea/No Vomiting Muscle Tremors: 3 Anxiety: 2 Agitation: 3 Paroxysmal Sweats: 1-Minimal Palms Moist Orientation: 1-Uncertain about Date Tacttile Disturbances: 0-None Auditory Disturbances: 0-None Visual Disturbances: 0-None Headache: 1-Very Mild CIWA-Ar Total Score: 12 S Progress Note (SOAP) Subjective: 63 years old male admitted on 02/02/19 for acute alcohol withdrawal sx management doing well with librium detox regimen less tremor tolerate food and fluid well bp elevation gradually controlled Objective: 02/04/19 12:38 Vital Signs Temperature 97.7 F 02/04/19 09:08 Pulse Rate 81 02/04/19 09:08 Respiratory Rate 18 02/04/19 09:08 Blood Pressure 135/86 02/04/19 09:08 O2 Sat by Pulse Oximetry (%) Laboratory Last Values WBC 4.2 K/mm3 (4.0-10.0) 02/03/19 08:00 RBC 4.38 M/mm3 (4.00-5.60) 02/03/19 08:00 Hgb 13.2 GM/dL (11.7-16.9) 02/03/19 08:00 Hct 39.6 % (35.4-49) 02/03/19 08:00 MCV 90.5 fl (80-96) 02/03/19 08:00 MCH 30.1 pg (25.7-33.7) 02/03/19 08:00 MCHC 33.2 g/dl (32.0-35.9) 02/03/19 08:00 RDW 14.4 % (11.9-15.9) 02/03/19 08:00 Plt Count 198 K/MM3 (134-434) 02/03/19 08:00 MPV 8.6 fl (7.5-11.1) D 02/03/19 08:00 Sodium 143 mmol/L (136-145) 02/03/19 08:00 Potassium 3.8 mmol/L (3.5-5.1) 02/03/19 08:00 Chloride 110 mmol/L (98-107) H 02/03/19 08:00 Carbon Dioxide 29 mmol/L (21-32) 02/03/19 08:00 Anion Gap 3 MMOL/L (8-16) L 02/03/19 08:00 BUN 21.7 mg/dL (7-18) H 02/03/19 08:00 Creatinine 1.0 mg/dL (0.55-1.3) 02/03/19 08:00 Est GFR (CKD-EPI)AfAm 93.08 02/03/19 08:00 Est GFR (CKD-EPI)NonAf 80.31 02/03/19 08:00 Random Glucose 93 mg/dL (74-106) 02/03/19 08:00 Calcium 8.4 mg/dL (8.5-10.1) L 02/03/19 08:00 Total Bilirubin 0.2 mg/dL (0.2-1) 02/03/19 08:00 AST 20 U/L (15-37) 02/03/19 08:00 ALT 24 U/L (13-61) 02/03/19 08:00 Alkaline Phosphatase 67 U/L (45-117) 02/03/19 08:00 Total Protein 5.8 g/dl (6.4-8.2) L 02/03/19 08:00 Albumin 3.2 g/dl (3.4-5.0) L 02/03/19 08:00 RPR Titer Nonreactive (NONREACTIVE) 02/03/19 08:00 lab noted discuss risks of bp elevation Assessment: 02/04/19 12:39 alcohol withdrawal sx Plan: continue alcohol detox
--- NOTE | 2019-02-04 17:45 | EKG ---
Test Reason : Blood Pressure : / mmHG Vent. Rate : 078 BPM Atrial Rate : 078 BPM P-R Int : 146 ms QRS Dur : 094 ms QT Int : 396 ms P-R-T Axes : 068 035 029 degrees QTc Int : 451 ms NORMAL SINUS RHYTHM WITH SINUS ARRHYTHMIA NORMAL ECG WHEN COMPARED WITH ECG OF 02-MAY-2018 13:04, NO SIGNIFICANT CHANGE WAS FOUND Confirmed by ANDREW CAMPOS MD ([id number]) on 02/04/2019 5:45:21 PM Referred By: Confirmed By:ANDREW CAMPOS MD
[2019-02-04] MEDS: THIAMINE HCL 100 MG TABLET (FP) PO SCH (22:41)
[2019-02-05] MEDS ORDERED: chlordiazePOXIDE HCL 10 MG CAPSULE PO PRN
[2019-02-05] MEDS: chlordiazePOXIDE HCL 10 MG CAPSULE PO SCH ×2 (06:17→10:42)
[2019-02-05] MEDS: PRENATAL VITAMINS W/ FOLIC ACID TABLET (FP) PO SCH (10:41)
[2019-02-05] MEDS: HYDROCHLOROTHIAZIDE 12.5 MG CAPSULE (FP) PO SCH (10:42)
[2019-02-05] MEDS: LOSARTAN POTASSIUM 50 MG TABLET (FP) PO SCH (10:42)
[2019-02-05] MEDS: LABETALOL HCL 200 MG TABLET (FP) PO SCH (10:42)
--- NOTE | 2019-02-05 12:55 | PN ---
[facility] CIWA - CIWA Score Nausea/Vomitin-Mild Nausea/No Vomiting Muscle Tremors: 3 Anxiety: 2 Agitation: 3 Paroxysmal Sweats: 1-Minimal Palms Moist Orientation: 0-Oriented Tacttile Disturbances: 1-Very Mild Itch/Numbness Auditory Disturbances: 0-None Visual Disturbances: 0-None Headache: 0-None Present CIWA-Ar Total Score: 11 BHS Progress Note (SOAP) Subjective: tremor mild anxiety no headaches today Objective: 02/05/19 12:55 Vital Signs Temperature 96.6 F L 02/05/19 10:10 Pulse Rate 68 02/05/19 10:10 Respiratory Rate 18 02/05/19 10:10 Blood Pressure 137/83 02/05/19 10:10 O2 Sat by Pulse Oximetry (%) Laboratory Last Values WBC 4.2 K/mm3 (4.0-10.0) 02/03/19 08:00 RBC 4.38 M/mm3 (4.00-5.60) 02/03/19 08:00 Hgb 13.2 GM/dL (11.7-16.9) 02/03/19 08:00 Hct 39.6 % (35.4-49) 02/03/19 08:00 MCV 90.5 fl (80-96) 02/03/19 08:00 MCH 30.1 pg (25.7-33.7) 02/03/19 08:00 MCHC 33.2 g/dl (32.0-35.9) 02/03/19 08:00 RDW 14.4 % (11.9-15.9) 02/03/19 08:00 Plt Count 198 K/MM3 (134-434) 02/03/19 08:00 MPV 8.6 fl (7.5-11.1) D 02/03/19 08:00 Sodium 143 mmol/L (136-145) 02/03/19 08:00 Potassium 3.8 mmol/L (3.5-5.1) 02/03/19 08:00 Chloride 110 mmol/L (98-107) H 02/03/19 08:00 Carbon Dioxide 29 mmol/L (21-32) 02/03/19 08:00 Anion Gap 3 MMOL/L (8-16) L 02/03/19 08:00 BUN 21.7 mg/dL (7-18) H 02/03/19 08:00 Creatinine 1.0 mg/dL (0.55-1.3) 02/03/19 08:00 Est GFR (CKD-EPI)AfAm 93.08 02/03/19 08:00 Est GFR (CKD-EPI)NonAf 80.31 02/03/19 08:00 Random Glucose 93 mg/dL (74-106) 02/03/19 08:00 Calcium 8.4 mg/dL (8.5-10.1) L 02/03/19 08:00 Total Bilirubin 0.2 mg/dL (0.2-1) 02/03/19 08:00 AST 20 U/L (15-37) 02/03/19 08:00 ALT 24 U/L (13-61) 02/03/19 08:00 Alkaline Phosphatase 67 U/L (45-117) 02/03/19 08:00 Total Protein 5.8 g/dl (6.4-8.2) L 02/03/19 08:00 Albumin 3.2 g/dl (3.4-5.0) L 02/03/19 08:00 RPR Titer Nonreactive (NONREACTIVE) 02/03/19 08:00 lab noted Assessment: 02/05/19 12:55 alcohol withdrawal sx Plan: continue alcohol detox
[2019-02-05 13:53] VITALS: BP 126/84; PULSE 71; TEMP 98.1
--- NOTE | 2019-02-05 16:17 | DS ---
[facility] Detox Discharge Summary Admission Date: 02/02/19 Discharge Date: 02/05/19 - History Present History: Alcohol Dependence Additional Comments: 63 years old male admitted on 02/02/19 for acute alcohol withdrawal sx insists to leave the detox the his job is more important than detox completion patient is alert oriented x 3 aftercare community support approach - Physical Exam Results Vital Signs: Vital Signs Temperature 98.1 F 02/05/19 13:52 Pulse Rate 71 02/05/19 13:52 Respiratory Rate 18 02/05/19 13:52 Blood Pressure 126/84 02/05/19 13:52 O2 Sat by Pulse Oximetry (%) Pertinent Admission Physical Exam Findings: alcohol withdrawal sx Laboratory Last Values WBC 4.2 K/mm3 (4.0-10.0) 02/03/19 08:00 RBC 4.38 M/mm3 (4.00-5.60) 02/03/19 08:00 Hgb 13.2 GM/dL (11.7-16.9) 02/03/19 08:00 Hct 39.6 % (35.4-49) 02/03/19 08:00 MCV 90.5 fl (80-96) 02/03/19 08:00 MCH 30.1 pg (25.7-33.7) 02/03/19 08:00 MCHC 33.2 g/dl (32.0-35.9) 02/03/19 08:00 RDW 14.4 % (11.9-15.9) 02/03/19 08:00 Plt Count 198 K/MM3 (134-434) 02/03/19 08:00 MPV 8.6 fl (7.5-11.1) D 02/03/19 08:00 Sodium 143 mmol/L (136-145) 02/03/19 08:00 Potassium 3.8 mmol/L (3.5-5.1) 02/03/19 08:00 Chloride 110 mmol/L (98-107) H 02/03/19 08:00 Carbon Dioxide 29 mmol/L (21-32) 02/03/19 08:00 Anion Gap 3 MMOL/L (8-16) L 02/03/19 08:00 BUN 21.7 mg/dL (7-18) H 02/03/19 08:00 Creatinine 1.0 mg/dL (0.55-1.3) 02/03/19 08:00 Est GFR (CKD-EPI)AfAm 93.08 02/03/19 08:00 Est GFR (CKD-EPI)NonAf 80.31 02/03/19 08:00 Random Glucose 93 mg/dL (74-106) 02/03/19 08:00 Calcium 8.4 mg/dL (8.5-10.1) L 02/03/19 08:00 Total Bilirubin 0.2 mg/dL (0.2-1) 02/03/19 08:00 AST 20 U/L (15-37) 02/03/19 08:00 ALT 24 U/L (13-61) 02/03/19 08:00 Alkaline Phosphatase 67 U/L (45-117) 02/03/19 08:00 Total Protein 5.8 g/dl (6.4-8.2) L 02/03/19 08:00 Albumin 3.2 g/dl (3.4-5.0) L 02/03/19 08:00 RPR Titer Nonreactive (NONREACTIVE) 02/03/19 08:00 lab noted - Treatment Hospital Course: Detox Protocol Followed, Responded well Patient has Accepted a Rehab Referral to: community support group - Medication Discharge Medications: Ambulatory Orders Losartan Potassium [Cozaar -] 100 mg PO DAILY #14 tablet 09/11/18 Labetalol HCl [Normodyne -] 200 mg PO BID #30 tablet 09/15/18 Losartan/Hydrochlorothiazide [Hyzaar 100-12.5 Tablet] 1 tab PO DAILY 30 Days # 15 tablet 09/15/18 - Diagnosis (1) Alcohol dependence with uncomplicated withdrawal Status: Acute (2) Hypertension Status: Chronic Qualifiers: Hypertension type: essential hypertension Qualified Code(s): I10 - Essential (primary) hypertension (3) Nicotine dependence Status: Chronic Qualifiers: Nicotine product type: cigarettes Substance use status: in withdrawal Qualified Code(s): F17.213 - Nicotine dependence, cigarettes, with withdrawal - AMA Did Patient Leave Against Medical Advice: Yes
[2019-02-06] MEDS ORDERED: chlordiazePOXIDE HCL 10 MG CAPSULE PO SCH (05:00)
[2019-02-07] MEDS ORDERED: chlordiazePOXIDE HCL 10 MG CAPSULE PO ONE (05:00)
== END 2019-02-05 14:58 | disposition left against medical advice (07) | DRG 770 ==
LOC: YASAS 15:57 → Y3N 22:20
PROVIDERS: ADMIT Surgery; ATTEND Surgery
PROC: HZ2ZZZZ Detoxification Services for Substance Abuse Treatment (ICD-10-PCS; principal; 2019-02-02)
DX: F10.230 Alcohol dependence with withdrawal, uncomplicated (principal); F14.20 Cocaine dependence, uncomplicated; F17.213 Nicotine dependence, cigarettes, with withdrawal; F32.9 Major depressive disorder, single episode, unspecified; I10 Essential (primary) hypertension; Z88.0 Allergy status to penicillin
CPT/HCPCS: 36415; 80053; 85027; 86480; 86593; 93005; 93010

== ENCOUNTER 2019-06-30 11:39 | Inpatient (IN) | payer OTHER ==
[2019-06-30 12:37] VITALS: BMI 27.8
--- NOTE | 2019-06-30 14:02 | HP ---
CIWA Score Nausea/Vomitin Muscle Tremors: 3 Anxiety: 4-Mod. Anxious/Guarded Agitation: 1-Slight > Activity Paroxysmal Sweats: No Perspiration Orientation: 0-Oriented Tacttile Disturbances: 0-None Auditory Disturbances: 0-None Visual Disturbances: 0-None Headache: 2-Mild CIWA-Ar Total Score: 13 - Admission Criteria OASAS Guidelines: Admission for Medically Managed Detox: Requires at least one of the followin. CIWA greater than 12 2. Seizures within the past 24 hours 3. Delirium tremens within the past 24 hours 4. Hallucinations within the past 24 hours 5. Acute intervention needed for co occurring medical disorder 6. Acute intervention needed for co occurring psychiatric disorder 7. Severe withdrawal that cannot be handled at a lower level of care (continued vomiting, continued diarrhea, abnormal vital signs) requiring intravenous medication and/or fluids 8. Patient presents the following: CIWA greater than 12 Admission Criteria Met: Admission criteria met Admitting History and Physical - Admission History Source: Patient, Medical Record - Past Medical History Cardiovascular: Yes: HTN Dermatology: Yes: Other (tinea pedis) - Smoking History Smoking history: Current every day smoker Have you smoked in the past 12 months: Yes Aproximately how many cigarettes per day: 30 - Alcohol/Substance Use Hx Alcohol Use: Yes History of Substance Use: reports: Cocaine - Social History Usual Living Arrangement: Yes: Alone ADL: Independent Admission ROS [facility] Chief Complaint: I"m here to keep my job, they smelled alcohol and her I am Allergies/Adverse Reactions: Allergies Allergy/AdvReac Type Severity Reaction Status Date / Time Penicillins Allergy Severe stomach Verified 06/30/19 12:24 cramps History of Present Illness: 63 yo gentleman here for detox from alcohol. This is one of several admissions for detox. 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 He is living in a snf. Seen at [facility] ED last night for tinea pedis - I reviewed his discharge papers - he was Rx bactrim DS bid for seven days and mycostatin powder. He denies seizures - has had black outs - states he drink in the daytime and through the night. He is not on disability. Exam Limitations: No Limitations - Ebola screening Have you traveled outside of the country in the last 21 days: No (N) Have you had contact with anyone from an Ebola affected area: No Do you have a fever: No - Review of Systems Constitutional: Malaise, Changes in sleep EENT: reports: No Symptoms Reported Respiratory: reports: No Symptoms reported Cardiac: reports: No Symptoms Reported GI: reports: Poor Appetite, Poor Fluid Intake, Abdominal cramping : reports: No Symptoms Reported Musculoskeletal: reports: No Symptoms Reported Integumentary: reports: Dryness Neuro: reports: Tremors Endocrine: reports: No Symptoms Reported Hematology: reports: No Symptoms Reported Psychiatric: reports: Judgement Intact, Mood/Affect Appropiate, Orientated x3 Other Systems: Reviewed and Negative Patient History - Patient Medical History Hx Anemia: No Hx Asthma: No Hx Chronic Obstructive Pulmonary Disease (COPD): No Hx Cancer: No Hx Cardiac Disorders: No Hx Congestive Heart Failure: No Hx Hypertension: Yes (Losartan) Hx Hypercholesterolemia: No Hx Pacemaker: No HX Cerebrovascular Accident: No Hx Seizures: No Hx Dementia: No Hx Diabetes: No Hx Gastrointestinal Disorders: Yes (gerd) Hx Liver Disease: No Hx Genitourinary Disorders: Yes (nocturia) Hx Sexually Transmitted Disorders: No Hx Renal Disease (ESRD): No Hx Thyroid Disease: No Hx Human Immunodeficiency Virus (HIV): No (Negative 2018) Hx Hepatitis C: No Hx Depression: No Hx Suicide Attempt: No (Denies suicidal ideation at this time) Hx Bipolar Disorder: No Hx Schizophrenia: No - Patient Surgical History Past Surgical History: No Hx Neurologic Surgery: No Hx Cataract Extraction: No Hx Cardiac Surgery: No Hx Lung Surgery: No Hx Breast Surgery: No Hx Breast Biopsy: No Hx Abdominal Surgery: No Hx Appendectomy: No Hx Cholecystectomy: No Hx Genitourinary Surgery: No Hx Section: No Hx Orthopedic Surgery: No Anesthesia Reaction: No - PPD History Previous Implant?: Yes Documented Results: Negative w/proof Implanted On Prior R Admission?: Yes Date: 02/03/19 (TB quantiferon negative) PPD to be Administered?: Yes - Reproductive History Patient is a Female of Child Bearing Age (11 -55 yrs old): No - Smoking Cessation Smoking history: Current every day smoker Have you smoked in the past 12 months: Yes Aproximately how many cigarettes per day: 5 Hx Chewing Tobacco Use: No Initiated information on smoking cessation: Yes 'Breaking Loose' booklet given: 06/30/19 - Substance & Tx. History Hx Alcohol Use: Yes Hx Substance Use: Yes Substance Use Type: Alcohol, Cocaine Hx Substance Use Treatment: Yes (detox, rehab) - Substances abused Cocaine Substance route: Smoking Frequency: 1-3 times last 30 days Amount used: half a gram Age of first use: 31 Date of last use: 01/26/19 Alcohol Substance route: Oral Frequency: Daily Amount used: 1 pint of Chrystal Age of first use: 28 Date of last use: 06/29/19 Admission Physical Exam S - Vital Signs Vital Signs: Vital Signs - 24 hr 06/30/19 12:34 Temperature 97.0 F L Pulse Rate 67 Respiratory 18 Rate Blood Pressure 139/83 - Physical General Appearance: Yes: Nourished, Appropriately Dressed, Moderate Distress, Tremorous, Anxious HEENTM: Yes: EOMI, Hearing grossly Normal, Normocephalic, Normal Voice, Pharynx Normal, Other (poor dentition) Respiratory: Yes: Normal Breath Sounds, No Respiratory Distress Neck: Yes: No masses,lesions,Nodules, Supple Breast: Yes: Breast Exam Deferred Cardiology: Yes: Regular Rhythm, Regular Rate Abdominal: Yes: Flat, Soft Genitourinary: Yes: Frequency, Nocturia Back: Yes: Normal Inspection Musculoskeletal: Yes: full range of Motion, Gait Steady Extremities: Yes: Normal Capillary Refill, Normal Inspection, Non-Tender, Tremors 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: Yes: Fully Oriented, Alert, Normal Mood/Affect, Normal Response Integumentary: Yes: Normal Color, Dry, Warm, Other (missing big toenail and 4th digit toenail left foot) Lymphatic: Yes: Within Normal Limits - Diagnostic (1) Alcohol dependence with uncomplicated withdrawal Current Visit: Yes Status: Chronic (2) Cocaine dependence Current Visit: Yes Status: Chronic Qualifiers: Substance use status: uncomplicated Qualified Code(s): F14.20 - Cocaine dependence, uncomplicated (3) Hypertension Current Visit: Yes Status: Chronic Qualifiers: Hypertension type: essential hypertension Qualified Code(s): I10 - Essential (primary) hypertension (4) Nicotine dependence Current Visit: Yes Status: Chronic Qualifiers: Nicotine product type: cigarettes Substance use status: in withdrawal Qualified Code(s): F17.213 - Nicotine dependence, cigarettes, with withdrawal (5) Tinea pedis Current Visit: Yes Status: Chronic Qualifiers: Laterality: bilateral Qualified Code(s): B35.3 - Tinea pedis (6) GERD (gastroesophageal reflux disease) Current Visit: Yes Status: Chronic Qualifiers: Esophagitis presence: esophagitis presence not specified Qualified Code(s) : K21.9 - Gastro-esophageal reflux disease without esophagitis Cleared for Admission [facility] - Detox or Rehab S Level of Care: Medically Managed Detox Regimen/Protocol: Ativan Breathalyzer - Breathalyzer Breathalyzer: 0 Urine Drug Screen - Test Device Lot number: [id number] Expiration date: 02/14/21 - Control Is test valid?: Yes - Results Drug screen NEGATIVE: No Urine drug screen results: ABISAI-Cocaine Inpatient Rehab Admission - Rehab Decision to Admit Inpatient rehab admission?: No
[2019-06-30] MEDS ORDERED: hydrOXYzine PAMOATE 25 MG CAPSULE (FP) PO PRN (14:09)
[2019-06-30] MEDS ORDERED: MAG HYDROX/AL HYDROX/SIMETH 30 ML UNIT-DOSE CUP PO PRN (14:09)
[2019-06-30] MEDS ORDERED: LORazepam 1 MG TABLET PO PRN (14:09)
[2019-06-30] MEDS ORDERED: MAGNESIUM HYDROX 2400MG/30ML ORAL SUSPENSION 30 ML CUP PO PRN (14:09)
[2019-06-30] MEDS ORDERED: IBUPROFEN 400 MG TABLET (FP) PO PRN (14:09)
[2019-06-30] MEDS ORDERED: NICOTINE POLACRILEX 4 MG GUM BUC PRN (14:09)
[2019-06-30] MEDS ORDERED: METHOCARBAMOL 500 MG TABLET PO PRN (14:09)
[2019-06-30] MEDS ORDERED: MENTHOL/PHENOL 1 EACH UD MM PRN (14:09)
[2019-06-30] MEDS ORDERED: BISMUTH SUBSALICYLATE 524 MG/30 ML UD PO PRN (14:09)
[2019-06-30] MEDS ORDERED: ACETAMINOPHEN 325 MG TABLET (FP) PO PRN ×2 (14:09)
[2019-06-30] MEDS ORDERED: LORazepam 2 MG TABLET PO ONE (14:09)
[2019-06-30] MEDS ORDERED: MAGNESIUM CITRATE 300 ML BOTTLE PO PRN (14:09)
[2019-06-30] MEDS: HYDROCHLOROTHIAZIDE 12.5 MG CAPSULE (FP) PO SCH (15:50)
[2019-06-30] MEDS: LOSARTAN POTASSIUM 50 MG TABLET (FP) PO SCH (16:06)
[2019-06-30] MEDS ORDERED: MELATONIN 5 MG TABLETS PO PRN (22:00)
[2019-06-30] MEDS: SULFAMETHOXAZOLE/TRIMETHOPRIM 800MG/160MG D.S. TABLET PO SCH (22:52)
[2019-06-30] MEDS: LABETALOL HCL 200 MG TABLET (FP) PO SCH (22:52)
[2019-06-30] MEDS: THIAMINE HCL 100 MG TABLET (FP) PO SCH (22:53)
[2019-06-30] MEDS: NYSTATIN POWDER 100,000 UNITS/GM - 15 GM TOPICAL POWDER TP SCH (22:57)
[2019-06-30] MEDS: LORazepam 2 MG TABLET PO SCH (22:59)
[2019-07-01] MEDS: LORazepam 2 MG TABLET PO SCH ×4 (04:53→22:38)
[2019-07-01] MEDS: PRENATAL VITAMINS W/ FOLIC ACID TABLET (FP) PO SCH (10:15)
[2019-07-01] MEDS: LABETALOL HCL 200 MG TABLET (FP) PO SCH ×2 (10:15→22:38)
[2019-07-01] MEDS: LOSARTAN POTASSIUM 50 MG TABLET (FP) PO SCH (10:15)
[2019-07-01] MEDS: NYSTATIN POWDER 100,000 UNITS/GM - 15 GM TOPICAL POWDER TP SCH ×2 (10:15→22:40)
[2019-07-01] MEDS: SULFAMETHOXAZOLE/TRIMETHOPRIM 800MG/160MG D.S. TABLET PO SCH ×2 (10:15→22:38)
[2019-07-01] MEDS: HYDROCHLOROTHIAZIDE 12.5 MG CAPSULE (FP) PO SCH (10:15)
[2019-07-01 11:04] LABS: HEMOGLOBIN 13.4 GM/dL (11.7-16.9); MCH 30.3 pg (25.7-33.7); MCHC 33.5 g/dl (32.0-35.9); MEAN CELL VOLUME 90.4 fl (80-96); MEAN PLT VOLUME 8.6 fl (7.5-11.1); PLATELET COUNT 212 K/MM3 (134-434); RBC 4.42 M/mm3 (4.00-5.60); RDW 14.6 % (11.9-15.9)
[2019-07-01 11:22] LABS: ALBUMIN 3.3 g/dl (3.4-5.0); BILIRUBIN,TOTAL 0.5 mg/dL (0.2-1); BLOOD UREA NITROGEN 10.6 mg/dL (7-18); CALCIUM 8.5 mg/dL (8.5-10.1); CREATININE 1.1 mg/dL (0.55-1.3); TOT PROT 6.6 g/dl (6.4-8.2)
[2019-07-01] MEDS ORDERED: FLU VACCINE QUAD 60 MCG/0.5 ML (MDV 19-20) IM ONE (12:00)
--- NOTE | 2019-07-01 15:48 | PN ---
[facility] CIWA - CIWA Score Nausea/Vomitin-Mild Nausea/No Vomiting Muscle Tremors: 3 Anxiety: 2 Agitation: 2 Paroxysmal Sweats: 3 Orientation: 0-Oriented Tacttile Disturbances: 0-None Auditory Disturbances: 0-None Visual Disturbances: 0-None Headache: 0-None Present CIWA-Ar Total Score: 11 S Progress Note (SOAP) Subjective: Feels ok, medication working Objective: 07/01/19 15:47 Last Vital Signs Temp Pulse Resp BP Pulse Ox 98.1 F 75 18 135/79 07/01/19 14:21 07/01/19 14:21 07/01/19 14:21 07/01/19 14:21 Elevated b/p: has htn, on med Laboratory Tests 07/01/19 07/01/19 07/01/19 08:00 08:00 08:00 WBC 4.0 RBC 4.42 Hgb 13.4 Hct 40.0 MCV 90.4 MCH 30.3 MCHC 33.5 RDW 14.6 Plt Count 212 MPV 8.6 Sodium 141 Potassium 4.0 Chloride 109 H Carbon Dioxide 24 Anion Gap 8 BUN 10.6 Creatinine 1.1 Est GFR (CKD-EPI)AfAm 82.95 Est GFR (CKD-EPI)NonAf 71.57 Random Glucose 89 Calcium 8.5 Total Bilirubin 0.5 AST 13 L ALT 20 Alkaline Phosphatase 62 Total Protein 6.6 Albumin 3.3 L RPR Titer Nonreactive Labs reviewed Assessment: 07/01/19 15:47 Withdrawal sxs Plan: Continue detox Encouraged PO water intake
[2019-07-01] MEDS: THIAMINE HCL 100 MG TABLET (FP) PO SCH (22:38)
[2019-07-02] MEDS: LORazepam 1 MG TABLET PO SCH ×4 (05:22→22:28)
[2019-07-02] MEDS: HYDROCHLOROTHIAZIDE 12.5 MG CAPSULE (FP) PO SCH (10:31)
[2019-07-02] MEDS: LOSARTAN POTASSIUM 50 MG TABLET (FP) PO SCH (10:31)
[2019-07-02] MEDS: LABETALOL HCL 200 MG TABLET (FP) PO SCH ×2 (10:31→22:28)
[2019-07-02] MEDS: SULFAMETHOXAZOLE/TRIMETHOPRIM 800MG/160MG D.S. TABLET PO SCH ×2 (10:31→22:28)
[2019-07-02] MEDS: PRENATAL VITAMINS W/ FOLIC ACID TABLET (FP) PO SCH (10:31)
[2019-07-02] MEDS: NYSTATIN POWDER 100,000 UNITS/GM - 15 GM TOPICAL POWDER TP SCH ×2 (10:31→22:29)
[2019-07-02] MEDS ORDERED: ARTIFICIAL TEARS (POLYVINYL ALCOHOL) OPTH DROPS OU PRN (10:35)
--- NOTE | 2019-07-02 10:37 | PN ---
[facility] Progress Note Note: pt c/o dry/itchy eyes both eyes appear linh, no s/s of infection noted artificial tears ordered QID
--- NOTE | 2019-07-02 11:37 | PN ---
[facility] CIWA - CIWA Score Nausea/Vomitin-Mild Nausea/No Vomiting Muscle Tremors: 1-None Visible, but [place] Anxiety: 1-Mildly Anxious Agitation: 2 Paroxysmal Sweats: 2 Orientation: 0-Oriented Tacttile Disturbances: 1-Very Mild Itch/Numbness Auditory Disturbances: 0-None Visual Disturbances: 0-None Headache: 1-Very Mild CIWA-Ar Total Score: 9 [facility] Progress Note (SOAP) Subjective: alert,irritable,anxious,interrupted sleep,pain in the body Objective: 07/02/19 11:35 Vital Signs Temperature 97.5 F L 07/02/19 09:48 Pulse Rate 74 07/02/19 09:48 Respiratory Rate 18 07/02/19 09:48 Blood Pressure 148/88 07/02/19 09:48 O2 Sat by Pulse Oximetry (%) Assessment: 07/02/19 11:36 withdrawal symptom Plan: continue detox ativan regimen
[2019-07-02] MEDS: THIAMINE HCL 100 MG TABLET (FP) PO SCH (22:28)
[2019-07-03] MEDS ORDERED: LORazepam 0.5 MG TABLET PO PRN
[2019-07-03] MEDS ORDERED: LORazepam 0.5 MG TABLET PO SCH (05:00)
[2019-07-03 07:53] VITALS: BP 137/94; PULSE 73; TEMP 97.7
--- NOTE | 2019-07-03 08:33 | DS ---
[facility] Detox Discharge Summary Admission Date: 06/30/19 Discharge Date: 07/03/19 - History Present History: Alcohol Dependence, Cocaine Dependence - Physical Exam Results Vital Signs: Vital Signs Temperature 97.7 F 07/03/19 07:50 Pulse Rate 73 07/03/19 07:50 Respiratory Rate 18 07/03/19 07:50 Blood Pressure 137/94 07/03/19 07:50 O2 Sat by Pulse Oximetry (%) Pertinent Admission Physical Exam Findings: Vital Signs Temperature 97.7 F 07/03/19 07:50 Pulse Rate 73 07/03/19 07:50 Respiratory Rate 18 07/03/19 07:50 Blood Pressure 137/94 07/03/19 07:50 O2 Sat by Pulse Oximetry (%) Laboratory Tests 07/01/19 07/01/19 07/01/19 08:00 08:00 08:00 WBC 4.0 RBC 4.42 Hgb 13.4 Hct 40.0 MCV 90.4 MCH 30.3 MCHC 33.5 RDW 14.6 Plt Count 212 MPV 8.6 Sodium 141 Potassium 4.0 Chloride 109 H Carbon Dioxide 24 Anion Gap 8 BUN 10.6 Creatinine 1.1 Est GFR (CKD-EPI)AfAm 82.95 Est GFR (CKD-EPI)NonAf 71.57 Random Glucose 89 Calcium 8.5 Total Bilirubin 0.5 AST 13 L ALT 20 Alkaline Phosphatase 62 Total Protein 6.6 Albumin 3.3 L RPR Titer Nonreactive aaox3 ambulating no acute distress - Treatment Hospital Course: Detox Protocol Followed, Detoxed Safely, Responded well, Discharged Condition Good, Rehab Referral Accepted Patient has Accepted a Rehab Referral to: pt declined; referral provided - Medication Discharge Medications: Ambulatory Orders Labetalol HCl [Normodyne -] 200 mg PO BID #30 tablet 09/15/18 Losartan/Hydrochlorothiazide [Hyzaar 100-12.5 Tablet] 1 tab PO DAILY 30 Days # 15 tablet 09/15/18 Nystatin Powder [Nystop Powder -] 100 mg TP BID 06/30/19 Sulfamethoxazole/Trimethoprim [Bactrim Ds -] 1 tab PO BID 06/30/19 - Diagnosis (1) Alcohol dependence with uncomplicated withdrawal Current Visit: Yes Status: Chronic (2) Cocaine dependence Current Visit: Yes Status: Chronic Qualifiers: Substance use status: uncomplicated Qualified Code(s): F14.20 - Cocaine dependence, uncomplicated (3) GERD (gastroesophageal reflux disease) Current Visit: Yes Status: Chronic Qualifiers: Esophagitis presence: esophagitis presence not specified Qualified Code(s) : K21.9 - Gastro-esophageal reflux disease without esophagitis (4) Hypertension Current Visit: Yes Status: Chronic Qualifiers: Hypertension type: essential hypertension Qualified Code(s): I10 - Essential (primary) hypertension (5) Nicotine dependence Current Visit: Yes Status: Chronic Qualifiers: Nicotine product type: cigarettes Substance use status: uncomplicated Qualified Code(s): F17.210 - Nicotine dependence, cigarettes, uncomplicated (6) Tinea pedis Current Visit: Yes Status: Chronic Qualifiers: Laterality: bilateral Qualified Code(s): B35.3 - Tinea pedis (7) Depression Current Visit: No Status: Chronic Qualifiers: Depression Type: unspecified Qualified Code(s): F32.9 - Major depressive disorder, single episode, unspecified (8) Insomnia Current Visit: No Status: Chronic Qualifiers: Insomnia type: unspecified Qualified Code(s): G47.00 - Insomnia, unspecified (9) Drug-induced mood disorder Current Visit: No Status: Suspected - AMA Did Patient Leave Against Medical Advice: No
[2019-07-03] MEDS: PRENATAL VITAMINS W/ FOLIC ACID TABLET (FP) PO SCH (09:11)
[2019-07-03] MEDS: LOSARTAN POTASSIUM 50 MG TABLET (FP) PO SCH (09:11)
[2019-07-03] MEDS: SULFAMETHOXAZOLE/TRIMETHOPRIM 800MG/160MG D.S. TABLET PO SCH (09:12)
[2019-07-03] MEDS: LABETALOL HCL 200 MG TABLET (FP) PO SCH (09:12)
[2019-07-03] MEDS: HYDROCHLOROTHIAZIDE 12.5 MG CAPSULE (FP) PO SCH (09:12)
[2019-07-03] MEDS: NYSTATIN POWDER 100,000 UNITS/GM - 15 GM TOPICAL POWDER TP SCH (09:14)
[2019-07-04] MEDS ORDERED: LORazepam 0.5 MG TABLET PO ONE (05:00)
== END 2019-07-03 09:18 | disposition home or self-care (01) | DRG 774 ==
LOC: YASAS 11:39 → Y6N 14:49
PROVIDERS: ADMIT Allergy & Immunology; ATTEND Allergy & Immunology
PROC: HZ2ZZZZ Detoxification Services for Substance Abuse Treatment (ICD-10-PCS; principal; 2019-06-30)
DX: F10.230 Alcohol dependence with withdrawal, uncomplicated (principal); F14.20 Cocaine dependence, uncomplicated; F17.210 Nicotine dependence, cigarettes, uncomplicated; F19.24 Other psychoactive substance dependence with psychoactive substance-induced mood disorder; F32.9 Major depressive disorder, single episode, unspecified; I10 Essential (primary) hypertension; K21.9 Gastro-esophageal reflux disease without esophagitis; B35.3 Tinea pedis; G47.00 Insomnia, unspecified; H04.123 Dry eye syndrome of bilateral lacrimal glands; Z88.0 Allergy status to penicillin
CPT/HCPCS: 36415; 80053; 85027; 86593; G0008; Q2036

== ENCOUNTER 2021-04-11 13:01 | Inpatient (IN) | payer OTHER ==
[2021-04-11 16:14] VITALS: BMI 35.1
[2021-04-11] MEDS ORDERED: IBUPROFEN 400 MG TABLET (FP) PO PRN (18:40)
[2021-04-11] MEDS ORDERED: P-EPHED 60MG/TRIPROLIDI 2.5MG TABLET PO PRN (18:40)
[2021-04-11] MEDS ORDERED: ACETAMINOPHEN 325 MG TABLET (FP) PO PRN (18:40)
[2021-04-11] MEDS ORDERED: NICOTINE 10 MG CARTRIDGE (INHALER) IH PRN (18:40)
[2021-04-11] MEDS ORDERED: MAGNESIUM HYDROX 2400MG/30ML ORAL SUSPENSION 30 ML CUP PO PRN (18:40)
[2021-04-11] MEDS ORDERED: MAG HYDROX/AL HYDROX/SIMETH 30 ML UNIT-DOSE CUP PO PRN (18:40)
[2021-04-11] MEDS ORDERED: guaiFENesin 200 MG/10 ML 10 ML UNIT-DOSE CUPS PO PRN (18:40)
[2021-04-11] MEDS ORDERED: hydrOXYzine PAMOATE 25 MG CAPSULE (FP) PO PRN (18:40)
[2021-04-11] MEDS ORDERED: LOPERAMIDE HCL 2 MG CAPSULE PO PRN (18:40)
[2021-04-11] MEDS ORDERED: MAGNESIUM CITRATE 300 ML BOTTLE PO PRN (18:40)
[2021-04-11] MEDS ORDERED: cloNIDine HCL 0.1 MG TABLET PO ONE (19:15)
[2021-04-11] MEDS ORDERED: MELATONIN 5 MG TABLETS PO SCH (22:00)
[2021-04-11] MEDS ORDERED: THIAMINE HCL 100 MG TABLET (FP) PO SCH (22:00)
[2021-04-11] MEDS ORDERED: TUBERCULIN PPD 5 TU/0.1ML VIAL ID ONE (22:19)
[2021-04-12 06:51] VITALS: TEMP 97.1
[2021-04-12 10:00] VITALS: BP 153/94; PULSE 74
[2021-04-12] MEDS ORDERED: LOSARTAN POTASSIUM 50 MG TABLET PO SCH (10:00)
[2021-04-12] MEDS ORDERED: PRENATAL VITAMINS W/ FOLIC ACID TABLET (FP) PO SCH (10:00)
[2021-04-12] MEDS ORDERED: HYDROCHLOROTHIAZIDE 12.5 MG CAPSULE (FP) PO SCH (10:00)
[2021-04-12] MEDS ORDERED: PATIENT'S OWN MEDICATION (NON-FORMULARY) (Losartan/Hydrochlorothiazide [Hyzaar 100-12.5 Ta PO SCH (10:00)
== END 2021-04-12 18:27 | disposition left against medical advice (07) | DRG 770 ==
LOC: YASAS 13:01 → Y5N 21:02
PROVIDERS: ADMIT Allergy & Immunology; ATTEND Allergy & Immunology
PROC: HZ42ZZZ Group Counseling for Substance Abuse Treatment, Cognitive-Behavioral (ICD-10-PCS; principal; 2021-04-11)
DX: F10.20 Alcohol dependence, uncomplicated (principal); F14.20 Cocaine dependence, uncomplicated; F17.210 Nicotine dependence, cigarettes, uncomplicated; F32.9 Major depressive disorder, single episode, unspecified; G47.00 Insomnia, unspecified; I10 Essential (primary) hypertension; K21.9 Gastro-esophageal reflux disease without esophagitis; B35.3 Tinea pedis; E66.9 Obesity, unspecified; Z68.35 Body mass index [BMI] 35.0-35.9, adult
CPT/HCPCS: C9803; J0735; U0003; U0005

== ENCOUNTER 2022-11-08 09:07 | Inpatient (IN) | payer OTHER ==
[2022-11-08 09:43] VITALS: BMI 36.8
[2022-11-08] MEDS ORDERED: guaiFENesin 600 MG TABLET.ER (FP) PO PRN (09:56)
[2022-11-08] MEDS ORDERED: LORazepam 1 MG TABLET PO PRN (09:56)
[2022-11-08] MEDS ORDERED: MAGNESIUM HYDROX 2400MG/30ML ORAL SUSPENSION 30 ML CUP PO PRN (09:56)
[2022-11-08] MEDS ORDERED: ONDANSETRON *ODT* 4 MG TABLET SL PRN (09:56)
[2022-11-08] MEDS ORDERED: NICOTINE 21 MG/24 HOURS TOPICAL PATCH TD PRN (09:56)
[2022-11-08] MEDS ORDERED: POLYETHYLENE GLYCOL (HEALTHYLAX) 3350 17 GM PACKET PO PRN (09:56)
[2022-11-08] MEDS ORDERED: ACETAMINOPHEN 325 MG TABLET (FP) PO PRN (09:56)
[2022-11-08] MEDS ORDERED: METHOCARBAMOL 500 MG TABLET PO PRN (09:56)
[2022-11-08] MEDS ORDERED: hydrOXYzine PAMOATE 25 MG CAPSULE (FP) PO PRN (09:56)
[2022-11-08] MEDS ORDERED: BENZOCAINE/MENTHOL (CHLORASEPTIC ) LOZENGE MM PRN (09:56)
[2022-11-08] MEDS ORDERED: IBUPROFEN 400 MG TABLET (FP) PO PRN (09:56)
[2022-11-08] MEDS ORDERED: LOPERAMIDE HCL 2 MG CAPSULE PO PRN (09:56)
[2022-11-08] MEDS ORDERED: BISMUTH SUBSALICYLATE 262 MG/15 ML BTL PO PRN (09:56)
[2022-11-08] MEDS ORDERED: NICOTINE POLACRILEX 4 MG GUM BUC PRN (09:56)
[2022-11-08] MEDS ORDERED: MAG HYDROX/AL HYDROX/SIMETH 30 ML UNIT-DOSE CUP PO PRN (09:56)
[2022-11-08] MEDS ORDERED: BENZONATATE 200 MG CAPSULE PO PRN (09:56)
[2022-11-08] MEDS ORDERED: IBUPROFEN 600 MG TABLET (FP) PO PRN (09:56)
[2022-11-08] MEDS ORDERED: LABETALOL HCL 200 MG TABLET (FP) PO PRN (10:03)
[2022-11-08] MEDS ORDERED: LOSARTAN 50MG/HCTZ 12.5MG 1 TAB PO SCH (10:15)
[2022-11-08] MEDS: PRENATAL VITAMINS W/ FOLIC ACID TABLET (FP) PO SCH (11:17)
[2022-11-08] MEDS: LOSARTAN POTASSIUM 50 MG TABLET PO SCH (11:17)
[2022-11-08] MEDS: HYDROCHLOROTHIAZIDE 12.5 MG CAPSULE (FP) PO SCH (11:17)
[2022-11-08] MEDS: LORazepam 2 MG TABLET PO SCH ×3 (11:17→22:23)
[2022-11-08] MEDS ORDERED: PRENATAL VITAMINS W/ FOLIC ACID TABLET (FP) PO ONE (11:25)
[2022-11-08] MEDS ORDERED: LORazepam 2 MG TABLET ONE (11:25)
[2022-11-08] MEDS ORDERED: HYDROCHLOROTHIAZIDE 12.5 MG CAPSULE (FP) ONE (11:25)
[2022-11-08 14:29] LABS: HEMATOCRIT 41.2 % (35.4-49); HEMOGLOBIN 14.4 GM/dL (11.7-16.9); MCH 29.6 pg (25.7-33.7); MCHC 34.9 g/dl (32.0-35.9); MEAN CELL VOLUME 84.9 fl (80-96); MEAN PLT VOLUME 9.2 fl (7.5-11.1); PLATELET COUNT 215 10^3/uL (134-434); RBC 4.86 M/mm3 (4.00-5.60); RDW 14.4 % (11.9-15.9); WHITE BLOOD COUNT 6.2 K/mm3 (4.0-10.0)
[2022-11-08 14:32] LABS: CALCIUM 8.8 mg/dL (8.5-10.1)
[2022-11-08 14:33] LABS: ALBUMIN 3.8 g/dl (3.4-5.0); BLOOD UREA NITROGEN 16.5 mg/dL (7-18)
[2022-11-08 14:36] LABS: CREATININE 1.1 mg/dL (0.55-1.3)
[2022-11-08 14:38] LABS: BILIRUBIN,TOTAL 0.2 mg/dL (0.2-1); TOT PROT 7.9 g/dl (6.4-8.2)
[2022-11-08] MEDS: THIAMINE HCL 100 MG TABLET (FP) PO SCH (22:22)
[2022-11-08] MEDS: FAMOTIDINE 20 MG TABLET PO SCH (22:22)
[2022-11-08] MEDS: MELATONIN 5 MG TABLETS PO SCH (22:22)
[2022-11-08] MEDS ORDERED: METOPROLOL TARTRATE 50 MG TABLET (FP) PO ONE (22:57)
[2022-11-09] MEDS: LORazepam 2 MG TABLET PO SCH ×4 (05:32→22:21)
[2022-11-09] MEDS ORDERED: cloNIDine HCL 0.1 MG TABLET PO ONE (06:25)
[2022-11-09] MEDS: HYDROCHLOROTHIAZIDE 12.5 MG CAPSULE (FP) PO SCH (09:46)
[2022-11-09] MEDS: FAMOTIDINE 20 MG TABLET PO SCH ×2 (09:46→22:21)
[2022-11-09] MEDS: LOSARTAN POTASSIUM 50 MG TABLET PO SCH (09:46)
[2022-11-09] MEDS: PRENATAL VITAMINS W/ FOLIC ACID TABLET (FP) PO SCH (09:46)
[2022-11-09] MEDS: LABETALOL HCL 100 MG TABLET (FP) PO PRN (13:26)
[2022-11-09] MEDS ORDERED: PATIENT'S OWN MEDICATION (NON-FORMULARY) (Losartan/Hydrochlorothiazide [Hyzaar 100-12.5 Ta PO SCH (15:00)
[2022-11-09] MEDS: cloNIDine HCL 0.1 MG TABLET PO PRN ×3 (15:09→22:21)
[2022-11-09] MEDS: THIAMINE HCL 100 MG TABLET (FP) PO SCH (22:20)
[2022-11-09] MEDS: MELATONIN 5 MG TABLETS PO SCH (22:21)
[2022-11-10] MEDS: LORazepam 1 MG TABLET PO SCH ×4 (05:11→22:11)
[2022-11-10] MEDS: FAMOTIDINE 20 MG TABLET PO SCH ×2 (10:27→22:10)
[2022-11-10] MEDS: PRENATAL VITAMINS W/ FOLIC ACID TABLET (FP) PO SCH (10:27)
[2022-11-10] MEDS: LOSARTAN POTASSIUM 50 MG TABLET PO SCH (10:27)
[2022-11-10] MEDS: HYDROCHLOROTHIAZIDE 12.5 MG CAPSULE (FP) PO SCH (10:27)
[2022-11-10] MEDS: LABETALOL HCL 100 MG TABLET (FP) PO PRN (12:57)
[2022-11-10] MEDS: cloNIDine HCL 0.1 MG TABLET PO PRN ×3 (13:00→22:21)
[2022-11-10] MEDS: MELATONIN 5 MG TABLETS PO SCH (22:10)
[2022-11-10] MEDS: THIAMINE HCL 100 MG TABLET (FP) PO SCH (23:11)
[2022-11-10] MEDS ORDERED: LISINOPRIL 5 MG TABLET PO ONE (23:41)
[2022-11-11] MEDS ORDERED: LORazepam 0.5 MG TABLET PO PRN
[2022-11-11] MEDS ORDERED: LORazepam 0.5 MG TABLET PO SCH (05:00)
[2022-11-11 09:10] VITALS: BP 140/78; PULSE 87; RESP 16; TEMP 97.1
[2022-11-11] MEDS: HYDROCHLOROTHIAZIDE 12.5 MG CAPSULE (FP) PO SCH (10:26)
[2022-11-11] MEDS: LOSARTAN POTASSIUM 50 MG TABLET PO SCH (10:26)
[2022-11-11] MEDS: PRENATAL VITAMINS W/ FOLIC ACID TABLET (FP) PO SCH (10:27)
[2022-11-11] MEDS: FAMOTIDINE 20 MG TABLET PO SCH (10:27)
[2022-11-12] MEDS ORDERED: LORazepam 0.5 MG TABLET PO ONE (05:00)
== END 2022-11-11 10:40 | disposition home or self-care (01) | DRG 897 ==
LOC: YASAS 09:07 → Y6N 12:23
PROVIDERS: ADMIT Allergy & Immunology; ATTEND Surgery
PROC: HZ2ZZZZ Detoxification Services for Substance Abuse Treatment (ICD-10-PCS; principal; 2022-11-08)
DX: F10.230 Alcohol dependence with withdrawal, uncomplicated (principal); F14.20 Cocaine dependence, uncomplicated; F17.210 Nicotine dependence, cigarettes, uncomplicated; I10 Essential (primary) hypertension; B35.3 Tinea pedis; K21.9 Gastro-esophageal reflux disease without esophagitis; R76.11 Nonspecific reaction to tuberculin skin test without active tuberculosis; E66.9 Obesity, unspecified; Z68.36 Body mass index [BMI] 36.0-36.9, adult; Z86.19 Personal history of other infectious and parasitic diseases; Z88.0 Allergy status to penicillin
CPT/HCPCS: 36415; 71046-TC-FY; 80053; 85027; 86780; 93005; 93010; C9803-CS; U0003; U0005